=== PATIENT | male | born 1980 | race Caucasian/White ===

== ENCOUNTER 2017-07-17 17:18 | Emergency (ER) | payer MEDICAID, SELFPAY ==
[2017-07-17 17:19] VITALS: BP 145/91; PULSE 71; RESP 14; TEMP 36.4; O2SAT 100; BMI 27.0
--- NOTE | 2017-07-17 17:24 | RAD_ITS ---
STUDY: X-RAY CHEST REASON FOR EXAM: Male, 37 years old. Chest pain TECHNIQUE: Single frontal view COMPARISON: June 28, 2015 FINDINGS: The lungs are clear and expanded. There is no demonstrated pleural abnormality. Normal size heart. Normal mediastinum and jordi. Normal visualized pulmonary arteries. Normal visualized aortic arch and descending thoracic aorta. Normal visualized thoracic spine. Normal visualized ribs, clavicles, and shoulders. There is no demonstrated abnormality of the visualized soft tissue structures of the upper abdomen. RAD/Chest 1 View (Portable) IMPRESSION: Normal x-ray examination of the chest. Electronically Signed: Tyrell Arteaga DO at 18:08 EDT Tel [phone], Service support ,
--- NOTE | 2017-07-17 17:24 | EKG12_ITS ---
Test Reason : CP Blood Pressure : / mmHG Vent. Rate : 060 BPM Atrial Rate : 060 BPM P-R Int : 172 ms QRS Dur : 098 ms QT Int : 406 ms P-R-T Axes : 062 084 053 degrees QTc Int : 406 ms Normal sinus rhythm Septal infarct , age undetermined Abnormal ECG Confirmed by IRENE JIMENEZ, YASMANY ([id number]), fan mail editor MONICA BENNETT ([id number]) on 07/19/2017 1:08:09 PM Referred By: VERN/COURTNEY Confirmed By:YASMANY BONILLA MD
[2017-07-17 17:51] VITALS: O2SAT 98
[2017-07-17 17:53] LABS: Absolute Neutrophil Count 4.4 X10^3/uL (2.0-7.7); Basophil# 0.02 X10^3/uL; Basophil% 0.3 % (0-1); Eosinophil# 0.03 X10^3/uL; Eosinophils% 0.4 % (0-5); Hematocrit 47.3 % (40-54); Hemoglobin 15.9 g/dl (13.0-16.5); Lymphocyte % 27.5 % (19-41); Mean Corp Hgb Conc 33.6 g/gl (32-36); Mean Corpuscular Hgb 31.2 pg (27.0-32.0); Mean Corpuscular Volume 92.9 fL (80-94); Mean Platelet Vol. 10.2 fl (6.2-12.0); Monocyte# 0.55 X10^3/uL; Monocyte% 7.9 % (0-10); Neutrophil # 4.41 X10^3/uL (2.7-7.7); Neutrophil % 63.8 % (47-70); Platelet Count 202 K/mm3 (150-450); RBC Distribution Width CV 12.5 % (11.6-14.6); RBC Distribution Width SD 42.3 fl (35.1-43.9); Red Blood Count 5.09 M/mm3 (4.6-6.2); White Blood Count 6.9 K/mm3 (4.4-11.0)
[2017-07-17 18:02] LABS: POSITIVE COUNT NO; POSITIVE DIFFERENTIAL NO; POSITIVE MORPHOLOGY NO
[2017-07-17 18:06] LABS: Anion Gap 7 (5-15); BUN 9 mg/dL (7-18); BUN/Creat Ratio 11.9 RATIO (10-20); Calcium,Total 9.1 mg/dL (8.5-10.1); Chloride 105 mmol/L (98-107); Creatinine, Serum 0.76 mg/dL (0.70-1.30); EST Glomerular Filtration Rate 124 mL/min (>60); Est Glom Filt Rate - Afr Amer 150 mL/min (>60); Estimated Creatinine Clearance 151.86 ml/min; Glucose 115 mg/dL (74-106); Potassium 3.8 mmol/L (3.5-5.1); Sodium Level 137 mmol/L (136-145)
[2017-07-17 18:23] VITALS: BP 130/78; PULSE 72; RESP 16; O2SAT 97
--- NOTE | 2017-07-17 18:27 | ED.VISSUMM ---
- ER Visit Summary Date of Service: 07/17/17 Chief Complaint: Chest pain History of Present Illness: The patient is a 37 M who states that he has left anterior chest wall pain. He states that he has had this intermittently for years. He states that doing something strenuous like running around the yard makes it come about. Today it seemed more painful for normal. He states that several ER visits for this in the past. He has had a heart stress test 1 year ago that was negative. States he does not know what to do for it. After his stress test he never followed up with anybody. Physical Examination: Afebrile vital signs are stable Gen: Well-nourished well-developed Head: Normocephalic atraumatic Eyes: Perrl EOMI ENT: TMs clear no rhinorrhea moist mucous membranes Neck: Supple no lymphadenopathy no JVD nontender CVS: Regular rate rhythm no murmurs normal S1-S2 Respiratory: No distress clear to auscultation bilaterally left anterior chest and lower cartilage is tender to palpation. Abdomen: Soft nontender nondistended normal bowel sounds no masses Back: Nontender Extremity: Nontender no edema Skin: Normal color no rash Neuro: alert orientated ?3 CN II-XII intact normal strength sensation reflexes gait cerebellar Psych: Normal affect normal mood Test Results: EKG sinus rhythm at a rate of 60.. CBC, BMP, and troponin were negative. Chest x-ray negative. Emergency Department Course and Treatment: Patient received a dose of Toradol and Decadron. I think this is chronic costochondritis. He will be treated with anti-inflammatories and outpatient basis. I encouraged him to follow-up. Impression: 1. Costochondritis This note was generated with [employer] dictation software. It may contain incorrect words, spelling, and punctuation that were not noted in review of the chart prior to signing ED Disposition - Plan for ED Patient: Disposition: Home or Assisted Living Chief Complaint: Chest Pain Instructions: ED Chest Pain Costochondritis Prescriptions: Ibuprofen [Motrin] 800 mg PO TID #20 tab Referrals: Harsh Mack MD [Primary Care Provider] - 1 Week
[2017-07-17] MEDS: Ketorolac 30 MG/ML Syringe IV (18:47)
[2017-07-17 18:51] VITALS: BP 133/87; PULSE 59
== END 2017-07-17 18:51 | disposition home or self-care (01) ==
LOC: ED 18:40
PROVIDERS: Emergency Provider Emergency Medicine; Family Provider Family Medicine; PCP Family Medicine
DX: M94.0 Chondrocostal junction syndrome [Tietze] (principal); Z72.0 Tobacco use
CPT/HCPCS: 71045; 80048; 84484; 85025; 93005; 96374; 96375; 99285; A4216

== ENCOUNTER 2017-10-10 13:07 | Emergency (ER) | payer MEDICAID, SELFPAY ==
[2017-10-10 13:08] VITALS: BP 127/76; PULSE 88; RESP 19; TEMP 36.8; O2SAT 97; BMI 22.7
--- NOTE | 2017-10-10 13:24 | ED.VISSUMM ---
- ER Visit Summary Date of Service: 10/10/17 Chief Complaint: Dental pain History of Present Illness: The patient is a [address] Mack reports he is an appointment with a dentist in 5 days. He has pain in his left mandibular second molar that began approximately a week ago. He states that this tooth broke off a long time ago and is never had problems previously. Describes a throbbing pain is 1010 at worst and 7-10 currently. Sensitive to hot and cold temperatures. Is worsened by breathing or eating. Is taken NSAIDs without relief. He denies any fever, chills, nausea, or vomiting. Physical Examination: Vitals: Stable. Afebrile. Mouth: No trismus. No edema of the floor of the mouth. Pain with percussion of left mandibular second molar. There is obvious caries with erosion of the medial half of the tooth. He does have widespread dental decay. There is no focal abscess. General: A&O x 3. NAD. Cardiovascular exam: Regular rate and rhythm, no murmur, rub or gallop. Respiratory exam: Clear to auscultation bilaterally. No wheezes or stridor. Abdominal exam: Soft, nontender, nondistended, normal bowel sounds. No peritoneal signs. Extremity: No clubbing, cyanosis, or edema. Emergency Department Course and Treatment: Discussed the patient that if he has had this for quite some time he now has pain is likely that he has an infection. History with naproxen and penicillin here. Treatment Plan: Patient will be discharged on naproxen and penicillin. Instructed follow-up with his dentist as soon as possible. Disposition: To home in improved and stable condition. Impression: 1. Dental pain. This note was generated with [employer] software. It may contain incorrect words, spelling, and punctuation that were not noted in review of the chart prior to signing ED Disposition - Plan for ED Patient: Disposition: Home or Assisted Living Chief Complaint: Dental Instructions: ED Tooth Pain Prescriptions: Naproxen [Naprosyn] 500 mg PO BID #14 tablet Penicillin V Potassium 500 mg PO 4X/DAY #40 tablet Referrals: Dentist,Your [STAFF PHYSICIAN] - As soon as possible
[2017-10-10] MEDS: Penicillin Vk 250 MG Tablet 500 MG PO (13:29)
[2017-10-10] MEDS: Naproxen 250 MG Tablet 500 MG PO (13:30)
== END 2017-10-10 13:42 | disposition home or self-care (01) ==
LOC: ED 13:37
PROVIDERS: Emergency Provider Emergency Medicine; Family Provider Family Medicine; PCP Family Medicine
DX: K08.89 Other specified disorders of teeth and supporting structures (principal); K02.9 Dental caries, unspecified; F17.200 Nicotine dependence, unspecified, uncomplicated
CPT/HCPCS: 99283

== ENCOUNTER 2018-10-06 13:21 | Emergency (ER) | payer MEDICAID, SELFPAY ==
[2018-10-06 13:22] VITALS: BP 149/64; PULSE 89; RESP 16; TEMP 36.6; O2SAT 97; BMI 22.2
--- NOTE | 2018-10-06 13:45 | ED.VIS.GEN ---
History of Present Illness Chief Complaint: Upper Extremity Injury Informant: Patient Onset: Days - 2 Context: Onset with activity Timing: Continuous Current Severity: Mild Maximum Severity: Moderate Narrative: Patient got hit in his left shoulder while playing football this weekend. 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 Most of the pain is with movement, it is aching it is shoulder and lower neck region paraspinal near the shoulder. No other injury, he denies any midline neck pain any head injury loss of consciousness he has no paresthesias or weakness. Past Medical History - Allergies and Home Meds Allergies/Adverse Reactions: Allergies No Known Allergies Allergy (Verified 10/06/18 13:22) Primary Care Physician: Harsh Mack MD [Primary Care Provider] - Past Medical History: None Smoking Status: Current every day smoker Review of Systems Eyes: Denies: Visual changes - left Gastrointestinal: Denies: Abdominal pain Musculoskeletal: Reports: -. Denies: Back pain Skin: Denies: Rash, Wounds Neurological: Denies: Weakness, Parasthesia - For neck pain and shoulder pain as in HPI Hematologic: Denies: Easy bruising, Easy bleeding Physical Exam Vital Signs/Narrative: Vital Signs Temp Pulse Resp BP Pulse Ox 10/06/18 13:22 98 F 89 16 149/64 H 97 General: Well nourished, Well developed Head: Normocephalic, Atraumatic Eyes: Perrl ENT: - - No signs of Neck: - - facial trauma no C-spine tenderness very mild tenderness over the upper trapezius region Cardiovascular: Regular rate, Regular rhythm Respiratory: No distress Abdomen: Soft, Nontender Back: Nontender, Normal Inspection Extremities: - - There is diffuse left shoulder tenderness both over the anterior and posterior, some pain with abduction more than 90 degrees. No AC joint tenderness no clavicle tenderness no tenderness over the scapula. Skin: Normal color Neurological: Normal Sensation, Normal Gait Psychological: Normal affect Diagnostic/Tx/Re-eval Left shoulder x-ray interpreted by emergency doctor shows normal alignment normal AC joint no evidence of fracture or dislocation. - Medical Decision Making Patient has a normal x-ray, I will discharge with reassurance Discharge stable condition ED Disposition - Plan for ED Patient: Disposition: Home or Assisted Living Diagnosis: Shoulder contusion Instructions: CONTUSION, Upper Extremity Referrals: Harsh Mack MD [Primary Care Provider] - 3-5 Days
--- NOTE | 2018-10-06 13:48 | RAD_ITS ---
STUDY: X-RAY - LEFT SHOULDER REASON FOR EXAM: Male, 38 years old. Left shoulder pain following injury. TECHNIQUE: 4 view(s) of the shoulder. COMPARISON: None. FINDINGS: Normal glenohumeral articulation. Normal acromioclavicular joint. Normal acromion. Normal humeral head and visualized proximal humerus. The soft tissue structures are unremarkable. Normal visualized pulmonary apex. RAD/Shoulder min 2 Views IMPRESSION: Normal x-ray examination of the shoulder. Electronically Signed: Chidi Daigle, at 14:10 EDT , Service support ,
== END 2018-10-06 14:29 | disposition home or self-care (01) ==
PROVIDERS: Emergency Provider Emergency Medicine; Family Provider Family Medicine; PCP Family Medicine
DX: S40.012A Contusion of left shoulder, initial encounter (principal); X58.XXXA Exposure to other specified factors, initial encounter; Y93.61 Activity, american tackle football; Y92.9 Unspecified place or not applicable; F17.200 Nicotine dependence, unspecified, uncomplicated
CPT/HCPCS: 73030; 99282; A4216

== ENCOUNTER 2018-11-06 19:30 | Emergency (ER) | payer MEDICAID, SELFPAY ==
[2018-11-06 19:31] VITALS: BP 138/81; PULSE 80; RESP 18; TEMP 36.3; O2SAT 96; BMI 24.4
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
[2018-11-06] MEDS: Amox/Clavulanate 875 MG Tablet PO (20:00)
[2018-11-06] MEDS: HYDROcodone Bitartrate/Apap 5/325 Tablet PO (20:00)
== END 2018-11-06 20:04 | disposition home or self-care (01) ==
LOC: ED 19:49
PROVIDERS: Emergency Provider Emergency Medicine; Family Provider Family Medicine; PCP Family Medicine
DX: S02.5XXA Fracture of tooth (traumatic), initial encounter for closed fracture (principal); K02.9 Dental caries, unspecified; W50.0XXA Accidental hit or strike by another person, initial encounter; Y93.72 Activity, wrestling; Y92.9 Unspecified place or not applicable; F17.200 Nicotine dependence, unspecified, uncomplicated
CPT/HCPCS: 99283

== ENCOUNTER 2019-10-27 04:31 | Emergency (ER) | payer MEDICAID, SELFPAY ==
[2019-10-27 04:32] VITALS: BP 138/84; PULSE 103; RESP 16; TEMP 36.6; O2SAT 99; BMI 23.8
--- NOTE | 2019-10-27 04:37 | ED.DCSUM_ITS ---
History of Present Illness Chief Complaint: Upper Extremity Injury Informant: Patient Narrative: Presents with right shoulder pain. He states in his right trapezius. 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 He denies any trauma. He states that he is tried ice and heat as well as Aleve but is not working. He had a similar issue in the past that he saw his PCP for and was in physical therapy. Past Medical History - Allergies and Home Meds Allergies/Adverse Reactions: Allergies No Known Allergies Allergy (Verified 10/27/19 04:36) Primary Care Physician: Harsh Mack MD [Primary Care Provider] - Prior records reviewed: Yes Lives: Alone Smoking Status: Current every day smoker Review of Systems General: Reports: Fever. Denies: Chills Eyes: Denies: Visual changes - bilaterally, Diplopia ENT: Denies: Rhinorrhea, Sore throat Cardiovascular: Denies: Chest pain, Palpitations Respiratory: Denies: Dyspnea, Cough, Dyspnea on exertion Gastrointestinal: Denies: Abdominal pain, Nausea, Vomiting, Diarrhea, Melena, Hematochezia Genitourinary: Denies: Dysuria Musculoskeletal: Reports: Extremity Pain - Trapezius pain and right shoulder pain Skin: Denies: Rash Neurological: Denies: Headache Physical Exam Vital Signs/Narrative: Vital Signs Temp Pulse Resp BP Pulse Ox 10/27/19 04:32 97.9 F 103 H 16 138/84 H 99 General: Well nourished, No Acute Distress Head: Normocephalic, Atraumatic ENT: Moist mucous membranes Neck: - - Spinal tenderness, step-off, deformity. Cardiovascular: Regular rate, Regular rhythm Respiratory: No distress Extremities: - - Tenderness to palpation over the right trapezius. There is no rash or ecchymosis. Full range of motion of the right shoulder. Strength in right upper extremity is 5/5 Skin: Normal color Neurological: Alert, Oriented x3 Psychological: Normal affect Diagnostic/Tx/Re-eval - Medical Decision Making Presents with right shoulder pain which he localizes to the trapezius. He denies any trauma. He is tried NSAIDs at home with ice and heat I counseled him that I will give him some muscle relaxers. He should continue his therapy. He should follow-up with his PCP for physical therapy. Was amenable to this plan. Impression: 1. Right trapezius strain ED Disposition - Plan for ED Patient: Disposition: Home or Assisted Living Instructions: ED Sprain Strain Neck Prescriptions: Cyclobenzaprine HCl 10 mg PO TID PRN PRN #20 tab PRN Reason: pain Prescription Printed Referrals: Harsh Mack MD [Primary Care Provider] -
[2019-10-27] MEDS: Orphenadrine 100 MG Tablet PO (04:53)
== END 2019-10-27 04:55 | disposition home or self-care (01) ==
LOC: ED 04:52
PROVIDERS: Emergency Provider Student in an Organized Health Care Education/Training Program; PCP Family Medicine
DX: S29.012A Strain of muscle and tendon of back wall of thorax, initial encounter (principal); X58.XXXA Exposure to other specified factors, initial encounter; Y93.9 Activity, unspecified; Y92.9 Unspecified place or not applicable; Y99.9 Unspecified external cause status; F17.200 Nicotine dependence, unspecified, uncomplicated
CPT/HCPCS: 99283

== ENCOUNTER 2019-12-07 08:40 | Emergency (ER) | payer MEDICAID, SELFPAY ==
[2019-12-07 08:41] VITALS: BP 136/80; PULSE 90; RESP 17; TEMP 36.2; O2SAT 98; BMI 24.3
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
[2019-12-07] MEDS: Ketorolac 30 MG/ML Syringe IM (09:50)
[2019-12-07] MEDS: HYDROcodone Bitartrate/Apap 5/325 Tablet PO (09:50)
== END 2019-12-07 09:55 | disposition home or self-care (01) ==
LOC: ED 09:10
PROVIDERS: Emergency Provider Emergency Medicine
DX: M54.9 Dorsalgia, unspecified (principal); G89.29 Other chronic pain; F17.200 Nicotine dependence, unspecified, uncomplicated
CPT/HCPCS: 96372; 99283

== ENCOUNTER 2021-03-13 17:44 | Emergency (ER) | payer MEDICAID, SELFPAY ==
[2021-03-13 17:44] VITALS: BP 147/84; PULSE 104; RESP 24; TEMP 36.3; O2SAT 100; BMI 29.1
--- NOTE | 2021-03-13 18:43 | EX.ED.DYSGE1 ---
HPI History of Present Illness Chief Complaint: Shortness of Breath Informant: patient Narrative Narrative: 41-year-old male states that last Saturday he became ill. He notes headache myalgias cough rhinorrhea vomiting. He states the last couple days his symptoms have significantly worsened. He denies any known fevers. [facility] Medical History Chest pain Knee pain Limb weakness Severe headache Shoulder pain SOB (shortness of breath) Home Medications NK 02/01/20 [History Last Taken Unknown] Allergy/AdvReac Type Severity Reaction Status Date / Time No Known Allergies Allergy Verified 03/13/21 17:46 Surgical History History of knee surgery Social History Smoking Status: Current every day smoker tobacco type: cigarettes alcohol intake: never ROS ROS ED Constitutional Constitutional ED: Reports chills; Denies fever(s) or weight loss Eyes Eyes: Denies change in vision or diplopia ENT ENT ED: Reports rhinorrhea and sore throat; Denies ear pain Cardiovascular Cardiovascular: Denies chest pain, orthopnea, palpitations or racing heartbeat Respiratory/Chest Respiratory/Chest: Reports cough, dyspnea and dyspnea on exertion; Denies orthopnea Gastrointestinal Gastrointestinal: Reports diarrhea, nausea and vomiting; Denies abdominal pain Genitourinary Genitourinary ED: Denies dysuria, hematuria or urinary frequency Musculoskeletal Musculoskeletal: Reports myalgias; Denies arthralgias Integumentary Denies abscess or rash Neurologic Neurologic: Reports headache(s); Denies weakness Psychiatric Psychiatric: Denies anxiety, depression, suicidal ideation or suicidal thoughts Endocrine Endocrinology: Denies polydipsia, polyphagia or polyuria Allergic/Immunologic Allergic/Immunologic ED: Denies mouth swelling, tongue swelling or urticaria EXAM Physical Exam Const Vital Signs: 03/13/21 17:44 03/13/21 19:13 Temperature 97.4 F L Temperature Source Temporal Pulse Rate 104 H Respiratory Rate 24 H Respiratory Effort Normal Non-Labored Respiratory Depth Normal Respiratory Pattern Normal Blood Pressure 147/84 H Blood Pressure Mean 105 Pulse Ox 100 Oxygen Delivery Method Room Air Room Air Positive well nourished and well developed General Appearance ED: well developed HEENT Reports normocephalic, head/scalp atraumatic, TM's clear and moist mucous membranes Negative for trauma Tympanic Membrane ED: Yes TM's clear Eyes PERRL and EOMs intact bilaterally Neck no lymphadenopathy, supple and no JVD Resp normal respiratory effort and clear to auscultation bilaterally Cardio regular rate, regular rhythm and no murmurs GI normal to inspection, nondistended, normoactive bowel sounds and non-tender Palpation: soft Back/Spine no CVA tenderness and normal ROM Lumbar Spine / Lower Back: Negative for lumbar spinal tenderness Extremity normal to inspection General Extremety ED: Negative for edema General Extremity: Negative for edema Neuro oriented x3 and CN's II-XII intact bilaterally Sensorium / Orientation: alert Motor Exam: strength 5/5 throughout Psych mental status grossly normal Mood & Affect: Negative for depressed or tearful Skin no rashes or lesions noted and no wounds MDM MDM MDM Narrative Medical decision making narrative: My interpretation of the chest x-ray is no acute process. Rapid Covid and influenza were negative. A formal Covid PCR will be ordered. Patient will not need to stay for the results. Most likely has a viral illness would recommend supportive care and follow-up. Radiography Diagnostic Testing: Clinical Impression(s) from Imaging Studies Chest X-Ray 03/13/21 18:46 IMPRESSION: Normal x-ray examination of the chest. Electronically Signed: Desmond Townsend MD at 20:15 EST , Service support , Discharge Plan Triage Chief Complaint: Shortness of Breath ED Provider: Virgilio Liz Dx/Rx/DC Orders Clinical Impression: Acute viral syndrome Instructions: ED Viral Syndrome (Adult) Prescriptions: No Action NK RF: 0 Primary Care Provider: Care Physician,No Primary Referrals: Tisha Jackson MD [STAFF PHYSICIAN] - As Needed Care Physician,No Primary [Primary Care Provider] - Disposition Disposition: Home, Self Care Discharge Date/Time: 03/13/21 20:10
--- NOTE | 2021-03-13 18:46 | RAD_ITS ---
STUDY: X-RAY CHEST REASON FOR EXAM: Male, 41 years old. COUGH TECHNIQUE: Single AP portable view of the chest. COMPARISON: JULY 17, 2017 FINDINGS: The lungs are clear and expanded. There is no demonstrated pleural abnormality. Normal size heart. Normal mediastinum and jordi. Normal visualized pulmonary arteries. Normal visualized aortic arch and descending thoracic aorta. Normal visualized thoracic spine. Normal visualized ribs, clavicles, and shoulders. There is no demonstrated abnormality of the visualized soft tissue structures of the upper abdomen. RAD/Chest 1 View (Portable) IMPRESSION: Normal x-ray examination of the chest. Electronically Signed: Desmond Townsend MD at 20:15 EST , Service support ,
[2021-03-13 19:13] VITALS: O2SAT 99
== END 2021-03-13 20:10 | disposition home or self-care (01) ==
PROVIDERS: Emergency Provider Emergency Medicine
DX: B34.9 Viral infection, unspecified (principal); Z20.822 Contact with and (suspected) exposure to COVID-19; R51.9 Headache, unspecified; M79.10 Myalgia, unspecified site; R05.9 Cough, unspecified; R11.10 Vomiting, unspecified; J34.89 Other specified disorders of nose and nasal sinuses; R06.00 Dyspnea, unspecified; F17.210 Nicotine dependence, cigarettes, uncomplicated
CPT/HCPCS: 71045; 87426; 87635; 87804; 99283; U0005; U0003

== ENCOUNTER 2021-10-23 15:59 | Emergency (ER) | payer MEDICAID, SELFPAY ==
[2021-10-23 16:00] VITALS: BP 135/115; PULSE 105; RESP 16; TEMP 36.6; O2SAT 97; BMI 30.5
[2021-10-23 16:51] LABS: Absolute Lymphocyte Count 2.91 X10^3/uL (0.83-4.51); Absolute Neutrophil Count 6.8 X10^3/uL (2.0-7.7); Basophil# 0.05 X10^3/uL; Basophil% 0.5 % (0-1); Eosinophil# 0.06 X10^3/uL; Eosinophils% 0.5 % (0-5); Hematocrit 40.3 % (40-54); Hemoglobin 13.8 g/dL (13.0-16.5); Lymphocyte # 2.91 X10^3/ul (0.83-4.51); Lymphocyte % 26.2 % (19-41); Mean Corp Hgb Conc 34.2 g/dL (32-36); Mean Corpuscular Hgb 30.3 pg (27.0-32.0); Mean Corpuscular Volume 88.6 fL (80-94); Mean Platelet Vol. 10.2 fl (6.2-12.0); Monocyte# 1.29 X10^3/uL; Monocyte% 11.6 % (0-10); NRBC Flagged by Analyzer 0 % (0-5); Neutrophil # 6.77 X10^3/uL (2.7-7.7); Neutrophil % 60.9 % (47-70); Platelet Count 237 K/mm3 (150-450); RBC Distribution Width CV 12.1 % (11.6-14.6); RBC Distribution Width SD 39.4 fl (35.1-43.9); Red Blood Count 4.55 M/mm3 (4.6-6.2); White Blood Count 11.1 K/mm3 (4.4-11.0)
[2021-10-23 17:05] LABS: Anion Gap 6 (5-15); BUN 34 mg/dL (7-18); BUN/Creat Ratio 36.8 RATIO (10-20); Calcium,Total 9.4 mg/dL (8.5-10.1); Chloride 108 mmol/L (98-107); Creatinine, Serum 0.92 mg/dL (0.70-1.30); EST Glomerular Filtration Rate 96 mL/min (>60); Est Glom Filt Rate - Afr Amer 116 mL/min (>60); Estimated Creatinine Clearance 117.15 ml/min; Glucose 116 mg/dL (74-106); Potassium 3.5 mmol/L (3.5-5.1); Sodium Level 139 mmol/L (136-145)
--- NOTE | 2021-10-23 17:27 | EDS_ITS ---
HPI HPI - Psych History of Present Illness Chief Complaint: Suicidal Narrative Narrative: 41-year-old male with history of anxiety and depression as well as methamphetamine use presenting with depression. He states he does not exactly feel suicidal. He does not want to hurt himself. He states he does not want to . He states he is very depressed because he just got out of rehab on Saturday. He was able to go to his son's birthday republican on Saturday. He states that he ran into a friend that he knew from doing meth together in the store and he is not sure what happened. He states 10-minute later he was doing meth. He did this 1 time. This is made him very depressed. He does not have a suicide plan. Does not want hurt others. He states that he had previously talked to somebody from crisis who was supposed to call him back and was lost to follow-up. He states they did not call him. [facility] Medical History (Updated 10/23/21 @ 16:25 by Fei Xiao) Anxiety Chest pain Depression Knee pain Limb weakness Severe headache Shoulder pain SOB (shortness of breath) Home Medications NK 02/01/20 [History Last Taken Unknown] Allergy/AdvReac Type Severity Reaction Status Date / Time No Known Allergies Allergy Verified 10/23/21 16:03 Surgical History History of knee surgery Social History Smoking Status: Current every day smoker tobacco type: cigarettes alcohol intake: never EXAM Physical Exam Const Vital Signs: 10/23/21 16:00 10/23/21 17:33 10/23/21 18:23 Temperature 97.8 F Temperature Source Temporal Pulse Rate 105 H Respiratory Rate 16 13 15 Blood Pressure 135/115 H Blood Pressure Mean 121 Pulse Ox 97 Oxygen Delivery Method Room Air Room Air Room Air MDM MDM MDM Narrative Medical decision making narrative: Patient seems to be struggling with depression but does not admit to any suicidal or homicidal ideations. He is clear thinking and states most of his depression is currently having his over relapsing with methamphetamine the other day. I did obtain lab work for medical clearance and this is all normal. She was positive for methamphetamine and MDMA. EtOH negative. Crisis did speak with the patient and felt he was safe for outpatient follow-up. They set him up for a crisis appointment at 1 PM on . He was referred for IOP today. He is to continue with new day for his addiction. Any new problems he should return to the ER. Impression: 1. Depression 2. Methamphetamine abuse 3. MDMA abuse Lab Data Attestation: I reviewed the patient's lab results. Labs: Laboratory Results - last 24 hr 10/23/21 10/23/21 10/23/21 16:37 16:37 16:37 WBC 11.1 H RBC 4.55 L Hgb 13.8 Hct 40.3 MCV 88.6 MCH 30.3 MCHC 34.2 RDW Std Deviation 39.4 RDW Coeff of Carlos 12.1 Plt Count 237 MPV 10.2 Immature Gran % (Auto) 0.300 Neut % (Auto) 60.9 Lymph % (Auto) 26.2 Centre % (Auto) 11.6 H Eos % (Auto) 0.5 Baso % (Auto) 0.5 Absolute Neuts (auto) 6.8 Absolute Lymphs (auto) 2.91 Nucleated RBC % 0 Sodium 139 Potassium 3.5 Chloride 108 H Carbon Dioxide 25.0 Anion Gap 6 BUN 34 H Creatinine 0.92 Estim Creat Clear Calc 117.15 Est GFR (MDRD) Af Amer 116 Est GFR (MDRD) Non-Af 96 BUN/Creatinine Ratio 36.8 H Glucose 116 H Calcium 9.4 Urine Opiates Screen Urine Methadone Screen Ur Barbiturates Screen Ur Phencyclidine Scrn Ur Amphetamines Screen MDMA (Ecstasy) Screen U Benzodiazepines Scrn Urine Cocaine Screen U Cannabinoids Screen Ur Drug Screen Comment Ethyl Alcohol < 3.0 10/23/21 16:38 WBC RBC Hgb Hct MCV MCH MCHC RDW Std Deviation RDW Coeff of Carlos Plt Count MPV Immature Gran % (Auto) Neut % (Auto) Lymph % (Auto) Centre % (Auto) Eos % (Auto) Baso % (Auto) Absolute Neuts (auto) Absolute Lymphs (auto) Nucleated RBC % Sodium Potassium Chloride Carbon Dioxide Anion Gap BUN Creatinine Estim Creat Clear Calc Est GFR (MDRD) Af Amer Est GFR (MDRD) Non-Af BUN/Creatinine Ratio Glucose Calcium Urine Opiates Screen NEGATIVE Urine Methadone Screen NEGATIVE Ur Barbiturates Screen NEGATIVE Ur Phencyclidine Scrn NEGATIVE Ur Amphetamines Screen POSITIVE H MDMA (Ecstasy) Screen POSITIVE H U Benzodiazepines Scrn NEGATIVE Urine Cocaine Screen NEGATIVE U Cannabinoids Screen NEGATIVE Ur Drug Screen Comment Ethyl Alcohol Discharge Plan Triage Chief Complaint: Suicidal ED Provider: Lee Quiñones Dx/Rx/DC Orders Instructions: ED Depression Prescriptions: No Action NK Primary Care Provider: Care Physician,No Primary Referrals: Care Physician,No Primary [Primary Care Provider] - Activity Restrictions/Additional Instructions: You have follow-up with crisis at 1 PM. Today you were referred for IOP. You are to continue to follow-up with new day as well. Return to the ER with any new problems. Disposition Disposition: Home, Self Care
[2021-10-23 17:31] LABS: Amphetamine Urine VISTA POSITIVE (<1000 ng/mL); Barbiturate Urine VISTA NEGATIVE (< 200 ng/mL); Benzodiazepine Urine VISTA NEGATIVE (< 200 ng/mL); Cocaine Urine VISTA NEGATIVE (< 300 ng/mL); Ecstacy Urine VISTA POSITIVE (< 500 ng/mL); Methadone Urine VISTA NEGATIVE (< 300 ng/mL); PCP Urine VISTA NEGATIVE (< 25 ng/mL); THC Urine VISTA NEGATIVE (< 50 ng/mL); Vista UDS pH Range 5
[2021-10-23 17:33] VITALS: RESP 13
[2021-10-23 17:47] LABS: Alcohol, Blood (Medical)-Serum < 3.0 mg/dL
[2021-10-23 18:23] VITALS: RESP 15
[2021-10-23 20:20] VITALS: BP 118/75; PULSE 85; RESP 14; O2SAT 98
== END 2021-10-23 20:21 | disposition home or self-care (01) ==
PROVIDERS: Emergency Provider Student in an Organized Health Care Education/Training Program; Visit Provider Student in an Organized Health Care Education/Training Program
DX: F32.A Depression, unspecified (principal); F15.10 Other stimulant abuse, uncomplicated; F41.9 Anxiety disorder, unspecified; F17.210 Nicotine dependence, cigarettes, uncomplicated
CPT/HCPCS: 80048; 80307; 82077; 85025; 87811; 99283

== ENCOUNTER 2021-11-20 09:00 | Outpatient (RCR) | payer MEDICAID, SELFPAY ==
--- NOTE | 2021-11-20 09:03 | BH.COMM_ITS ---
Communication Note - Communication with Client Communication Note: Pt completed initial paperwork. No significant changes since pre-admission screening. Completed [place] Suicide Screening with low-moderate risk. Consulted with Dr. Mulligan with plan to admit to [facility] level of care with dx of F33.1
--- NOTE | 2021-11-20 09:05 | BH.SGPN.GN ---
Behaviors/Verbalizations/Mental Status: [] Eye contact is good. Motor activity is appropriate. Appearance is casual. Speech is Appropriate. Mood is depressed. Affect is flat. Thoughts are linear and logical. No evidence of psychosis. Reviewed daily check in sheet and no reports of suicidal ideations or intent. Client Response/Progress/Benefit: [] Pt participated at times during group discussion. Attentive. This was pt?s first day in IOP. Not comfortable sharing yet in process group however did briefly introduce himself and stated that he hopes to work on ?his depression and anxiety? in IOP. Briefly discussed how this impacts him daily. No progress noted. Will continue in IOP to maintain safety, increase healthy coping, and prevent decompensation. Narrative Note: []
--- NOTE | 2021-11-20 10:10 | BH.SGPN.GN ---
Behaviors/Verbalizations/Mental Status: []Pt alert and oriented, casually dressed and groomed. Eye contact good. Motor activity appropriate. Speech within normal limits. Affect congruent, mood content. Thoughts linear, logical, no signs of hallucinations or delusions. Client Response/Progress/Benefit: []Pt was a mostly passive participant in group discussions and activity. Attentive during psychoeducation. Pt along with peers were able to identify several negatives on the picture given to the group. Pt and peers also identified positives in the picture and made the connect that finding positives is much more difficult. Interactive discussion on the definition of perspective, how perspective is formed, and why perspective is important in treatment. Group also identified that perspective can either motivate and encourage treatment or be a barrier to receiving help. Pt?s first day and he was positive quiet during group, but did take notes and participate in the activity. Will continue in IOP to prevent decompensation, gain healthy coping skills, and improve overall functioning. Narrative Note: []
--- NOTE | 2021-11-22 10:36 | BH.COMM ---
Communication Note - Communication with Client Communication Note: pt cancelled IOP this AM due to transportation issues. Was scheduled to see psychiatry.
== END 2021-11-22 23:59 ==
LOC: BHIOP 09:00
PROVIDERS: Visit Provider Psychiatry & Neurology Psychiatry
DX: F33.1 Major depressive disorder, recurrent, moderate (principal)
CPT/HCPCS: H2012

== ENCOUNTER 2021-11-23 07:44 | Outpatient (RCR) | payer MEDICAID, SELFPAY ==
--- NOTE | 2021-11-24 11:05 | BH.SGPN.GN ---
Behaviors/Verbalizations/Mental Status: []Pt alert and oriented, casually dressed and groomed. Eye contact intense. Motor activity appropriate. Speech within normal limits. Affect constricted, mood irritable. Thoughts linear, logical, no signs of hallucinations or delusions. Client Response/Progress/Benefit: []Pt engaged in session AEB pt listening attentively to peers. Attentive during psychoeducation on 4 zones of regulation. Pt able to identify feelings and behaviors for each zone.? Pt identified coping skills one can use to support self in each zone. Pt stated belief that pt is in the green zone today as pt is happy it that it is the weekend and he gets to see his kids. Pt reports taking his kids to the park today will keep pt in the green zone today. Benefited from increased education on zones of regulation or stages of alertness for emotions and healthy coping skills to use for each zone. Pt will continue IOP tx to prevent decompensation, improve emotional regulation skills, and increase mood stability. ? Narrative Note: []
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
--- NOTE | 2021-11-24 11:21 | BH.MTP_ITS ---
Master Treatment Plan - Patient Information Program Physician:: Charo Mulligan Primary Therapist:: Scout Hernandez - Psychiatric Diagnoses Psychiatric Diagnoses:: 1. Major depressive disorder, recurrent, moderate. 2. Generalized anxiety disorder. 3. PTSD. 4. Attention deficit hyperactivity disorder. 5. Methamphetamine use disorder (sober for 2 months). Diagnosis Code(s):: F33.2 - Estimated LOS Estimated LOS (in weeks):: 8 Problem/Goal #1 - Problem/Goal #1 Stated Goal:: Client will reduce depressive symptoms, worthlessness, suicidal ideations, anger, and sadness AEB pt self-report and decreased scores on depression, anger, and suicidal ideation domains of the DSM-5 cross cutting scales. Description of Barriers: addiction, housing issues, unemployed, legal issues, trauma, and transportation issues. Functional Impact: Recently presented to the [facility] ER on 10/23/21 due to SI and depression. Hx of self-medication with substances for long-standing hx of depression. Goal Relevant Strengths/Supports: resilient, hard-worker, - Objectives Objective #1 Stated Objective: Client will learn and utilize 2-3 healthy coping strategies to manage depressive symptoms as shown by reduced DSM-5 cross-cutting symptom measure score. Interventions: Through individual and group counseling will help client identify their triggers and teach client various coping strategies to effectively cope with depressive symptoms. Discharge Criteria: Able to identify and consistently use 3 coping skills to manage depressive thoughts. Target Date: 01/04/22 Review Date: 12/14/21 Objective #2 Stated Objective: Client will identify 5 physical warning signs of anger and 5 ways to calm and manage anger. Interventions: Through individual and group counseling will provide client with calming techniques as part of a tailored strategy for reducing chronic and acute physiological tension that accompanies the escalation of his/her angry feelings. Discharge Criteria: Able to identify 5 warning signs to anger and 5 strategies to implement Target Date: 01/04/22 Review Date: 12/14/21 Problem/Goal #2 - Problem/Goal #2 Stated Goal:: Stabilize anxiety level while increasing ability to function on a daily basis AEB self-report and reduction on anxiety domain scores on the DSM-5 cross-cutting scale. Description of Barriers: addiction, housing issues, unemployed, legal issues, trauma, and transportation issues. Functional Impact: Anxiety, panic, and hypervigilance impact pt's relationship with others. Goal Relevant Strengths/Supports: resilient, hard-worker, extensive treatment for addiction issues. - Objectives Objective #1 Stated Objective: Client will learn and implement 2-3 calming skills to reduce overall anxiety and manage anxiety Interventions: Through individual and group counseling will teach the client calming/relaxation skills (e.g., muscle relaxation, mindful breathing) and how to discriminate better between relaxation and tension; teach the client how to apply these skills to his/her daily life. Discharge Criteria: Able to identify and consistently implement 3 calming skills for anxiety. Target Date: 01/04/22 Review Date: 12/14/21 Objective #2 Stated Objective: Client will be able to explain common stress reactions and sy mptoms related to trauma. Interventions: Through individual and group counseling will provide education on trauma and explain the impact trauma can have on development. Will help client explore personal symptoms and warning signs of stress and trauma. Discharge Criteria: Client will verbalize common stress reactions related to trauma triggers and report increased awareness and insight on how trauma impacts the brain. Target Date: 01/04/22 Review Date: 12/14/21
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
[2021-11-29 11:15] VITALS: BP 143/77; PULSE 80
--- NOTE | 2021-11-29 11:15 | BH.SGPN.GN ---
Behaviors/Verbalizations/Mental Status: []Pt alert and oriented, neatly dressed and groomed. Eye contact fair. Motor activity appropriate. Speech within normal limits. Affect constricted, mood dysthymic. Thoughts linear, logical, no signs of hallucinations or delusions. Client Response/Progress/Benefit: []Pt participated at times during group discussions. Attentive during psychoeducation on the 4 A's of Coping with Stress (Avoid, Alter, Adapt, Accept). Participated in experiential activity in which group members had to utilize stress management skills in the moment. Pt agreed with peers that their anxiety and urge to stop was a barrier but pt worked well with peers to problem-solve. Pt engaged in review of the 4 A?s and picked wanting to work on altering his morning routine by putting what he needs the night before which will reduce stress in the morning. Benefited from processing in the moment stress management strategies and identifying new ways to cope with stress. Will continue in IOP tx to increase healthy coping skills, improve daily functioning, and monitor medications. Narrative Note: []
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
--- NOTE | 2021-11-29 12:43 | BH.DR.ITP ---
Initial Treatment Plan Patient Information Visit Information: ADMISSION DATE: EXPECTED LOS: 4-6 weeks Problems/Symptoms Problem #1:: Depression Symptom:: Sadness, hopelessness, worthlessness, recent suicidal ideation, biological disruption of sleep Problem #2:: Anxiety Symptom:: Worry, rumination, panic attacks, nightmares, flashbacks, avoidance, reexperiencing
--- NOTE | 2021-12-06 09:05 | BH.SGPN.GN ---
Behaviors/Verbalizations/Mental Status: [] Eye contact is good. Motor activity is appropriate. Appearance is casual. Speech is Appropriate. Mood is anxious. Affect is congruent. Thoughts are linear and logical. No evidence of psychosis. Reviewed daily check in sheet and no reports of suicidal ideations or intent. Client Response/Progress/Benefit: [] Pt participated at times during the group discussion. Attentive. Daily symptom tracker notes 03/29 for depression, anxiety, and irritability. Mental health wins included spending several hours at a social event. Shared the struggles that he has at social events with his anxiety and hypervigilance. Being ?surrounded by strangers? is a significant trigger for him. ?There were too many people?. He was vague on skills except to state that ?I did it for the kids?. Pt was there with his nephews and nieces. Overall, he has been managing his emotions well which he attributes to distraction. ?I?ve been busy with work?. He is struggling with his responsibilities which include IOP, work, spending time with kids, and probation. Progress noted per pt report. Benefited from group support, encouragement, and feedback. Will continue in IOP to maintain safety, prevent decompensation, and increase healthy coping skills. Narrative Note: []
--- NOTE | 2021-12-06 11:00 | BH.SGPN.GN ---
Behaviors/Verbalizations/Mental Status: []Pt alert and oriented, casually dressed and groomed. Eye contact good. Motor activity appropriate. Speech within normal limits. Affect congruent, mood euthymic. Thoughts linear, logical, no signs of hallucinations or delusions. Client Response/Progress/Benefit: []Pt responded well to session as evidenced by Pt listening attentively to others and providing strategies during discussion.? Pt identified personal warning signs for crisis and gained further awareness of earliest warning signs. Pt created a crisis action plan to help Pt better manage warning signs for crisis. Pt?s action plan included warning signs such as negative thinking, uncontrollable worries, and feeling disconnected. Pt?s coping skills included challenging his perspective, taking deep breathes, self-talk, and reminding himself what does not help. Pt appeared to benefit from creating a crisis action plan and increasing self-awareness. Pt to continue IOP tx to increase emotional regulation skills, challenge distortions, and increase mood stability. Narrative Note: []
--- NOTE | 2021-12-07 10:15 | BH.SGPN.GN ---
Behaviors/Verbalizations/Mental Status: []Pt alert and oriented, casually dressed and groomed. Eye contact good. Motor activity appropriate. Speech within normal limits. Affect constricted, mood euthymic. Thoughts linear, logical, no signs of hallucinations or delusions. Client Response/Progress/Benefit: []Pt responded well to session AEB contributing to discussion, taking notes, and listening attentively to others. Group discussed the benefits of managed anger and anger as a secondary emotion. Pt shared perspective on negatives from acting out in anger as stress and more mental health issues.? Pt completed anger iceberg worksheet, reporting outward personal signs of anger as screaming cussing and yelling. Identified underlying emotions that contribute to anger including anxiety, depression, and feeling betrayed. ?Appeared to benefit from increased knowledge of the underlying emotions that impact anger and increased self-awareness of the internal and external consequences of anger. Will continue IOP tx to improve emotional regulation skills and increase mood stability. ?? Narrative Note: []
--- NOTE | 2021-12-07 13:23 | BH.MDN ---
Multi-Disciplinary Note - Note 45-min Individual Time Started:: 11:15 Date: 12/07/21 Purpose of session/treatment goals addressed:: Met with pt to review symptoms and progress. Addressed treatment plan goals 1 and 2. Eye Contact:: Good Motor Activity:: Appropriate Appearance:: Disheveled Speech:: Appropriate Mood:: Euthymic Affect:: Full Thoughts:: Linear, Logical, No evidence of hallucinations/delusions noted Staff Interventions:: CBT techniques, rapport building, discharge planning, strengths perspective Client Response:: Pt presents today in good spirits reporting decreased depression, anxiety, and distress since entering [facility]. I like it here and I'm learning quite a bit. States that he also likes the people and support. Benefiting the most from peer feedback, interaction, and not feeling alone. Medication compliant. Denies any struggles or side effects with the medication. He has also started working for himself again which has been difficulty however positive as it has helped him stay busy. Admits that distraction and purpose he gets through working have also helped with his mental health struggles. Denies any SI or passive thoughts of for the past several weeks. He shared several situations which were high anxiety that he made it through. Risks/Concerns:: No risks or concerns noted. Progress Toward Goals/Plan:: Pt reports progress over the the past two weeks. Currently reports decreased mental health symptoms, improved functioning, medication compliant, and remains sober. Insight and awareness of the triggers and environmental situations which can negatively impact him. Types of people, certain people, high tension, and anytime of substance use are all environments which put him in situation which can negative impact his mental health and sobriety. He was able to identify the importance of assessing all the environments that he enters (Whether socially or for work) to gauge whether entering is beneficial or not. Through groups he was able to identify the some coping skills, however is still learning. Pt's attendance has been inconsistent mainly due to transportation issues and work, however he reports being motivated. We will continue to encourage consistent attendance. Plan is to continue in [facility] to maintain gains and prevent decompensation. We discussed aftercare plans as well. Pt was given referral to [facility] for psychiatry and counseling. Time Stopped:: 12:00
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
--- NOTE | 2021-12-19 13:35 | BH.COMM_ITS ---
Communication Note - Communication with Client Communication Note: No show/no called. This marketing underwriter left VM asking for him to return call.
--- NOTE | 2021-12-19 13:35 | BH.COMM ---
Communication Note - Communication with Client Communication Note: No show/no called. This justowriter operator left VM asking for him to return call.
--- NOTE | 2021-12-20 11:14 | BH.DS ---
Discharge Summary - Demographics Date of Admission:: 11/20/21 Discharge Date: 12/20/21 Presenting Problems at Admission:: Pt is a 41 year old male with hx of MDD and anxiety per his report. Pt also has a hx of Methamphetamine Use Disorder (early remission). Pt was recently incarcerated at the [facility] where he underwent substance abuse treatment from 06/2021 through 10/20/21. Upon his release he ran into a friend who offered him meth and he ended up using. Shortly after his use pt reports increase in depression, guilt, and reported suicidal thoughts. Pt presented to the [facility] ER on 10/23/21 and after a crisis assessment was referred to [facility] IOP. Pt reports long-standing mental health symptoms stemming back to trauma at a young age. At time of intake pt reported low energy, low motivation, hopelessness, worthlessness, isolation, and crying spells. Frequent panic attacks and social anxiety. Current mental health and substance use issues have impacted ability to maintain employment or housing and pt is currently living with cousin. Denies active suicidal ideations, plan, or intent. According to ER notes pt presented on 10/23/21 and reported SI for two days prior. Notes indicate that he called his PO with SI who transported him to the ER. Previous suicide attempt 20 years ago via cutting wrists. Hx of meth use daily (1gram) till 06/2021. Relapsed once on 10/22/21 and again recently this past week. Weekly drug testing through PO who is aware of most recent relapse. Family hx of MDD (father). Denies HI or psychosis. Discharge Diagnoses:: 1. Major depressive disorder, recurrent, moderate. 2. Generalized anxiety disorder. 3. PTSD. 4. Attention deficit hyperactivity disorder. 5. Methamphetamine use disorder. Reason for Discharge:: Pt agreed to transition to individual outpatient counseling and psychiatry services as he has been unable to attend the IOP program consistently due to transportation issues. Pt has met max IOP program benefit given barriers to consistent attendance. Recommended ongoing substance use and mental health treatment on an outpatient basis. - Treatment Progress During Treatment & Response: Inconsistent attendance in tx due to ongoing transportation issues. Though when in attendance, pt was engaged in both individual and group sessions. According to 5-week DSM scores, pt has had a 24% reduction in overall symptoms since admission. Outcomes show a 88% reduction in somatic symptom scales and an 88% reduction in repetitive thoughts and behaviors. Pt did see a slight increase in depressive symptoms though this may be related to the acute stressor of a recent of a close friend. Pt has had one relapse on meth since entering [facility] and reports his PO is aware of this. Self-reports improved mood and use of supports. Unable to complete treatment plan goals due to limited program attendance. He is able to identify several healthy coping skills and is working to improve consistency of skill application. Able to see some progress in himself and his improved mood, reports looking forward to continue working on his mental health through outpatient treatment services. Issues Still to be Addressed:: Relapse prevention for ongoing substance use issues. Pt would benefit from continued counseling and psychiatry to maintain gains, prevent decompensation, and continue to promote mood stability. Discharge Recommendations/Instructions:: Re[facility], next appointment scheduled for 12/27/21. Also recommended to follow-up with counseling to continue to work on anxiety, depression, and relapse prevention. Pt scheduled with Sara for an intake assessment on 01/05/22. Recommended engagement in outpatient substance use supportive services such as NA. Discharge Handout: Complete Discharge Handout with client on aftercare options and continuity of care.
--- NOTE | 2021-12-20 11:32 | BH.COMM ---
Communication Note - Communication with Client Communication Note: Met with pt to discuss treatment attendance issues and plan of care. Aided pt in establishing aftercare services given ongoing transportation issues impeding ability to maintain consistent program attendance.
--- NOTE | 2021-12-20 11:34 | PCM.BH.PN ---
Progress Note Progress Note: History of Present Illness/Interim History: [] The patient is a 41-year-old never male with a history of anxiety, depression, PTSD and methamphetamine use disorder who is seen in follow-up at the [facility] behavioral health IOP program. I last saw the patient 3 weeks ago and at that time he was started on Zyprexa to help with his severe anxiety which is exacerbating his depression. The patient states that he is tolerating the Zyprexa well but he still has severe anxiety and feels his anxiety is not much better. He denies using any energy drinks but he does admit that his he had a bad week last week including the fact that his best friend was killed in a motor vehicle accident last week and so the patient relapsed on methamphetamine 1 time only last week. He says that he is committed to staying sober now again. He has had somewhat inconsistent attendance in the IOP program but he feels that he has benefited from it. He is back to work full-time and is doing okay at work. He still has some worry and he sleeping 6 to 7 hours a night. He denies passive thoughts of , suicidal ideation, plan for suicide, homicidal ideation, hallucinations or delusions. Current Psychiatric Medications: [] Zyprexa 2.5 mg p.o. nightly (x3 weeks) Mental Status Examination: [] The patient is a 41-year-old male who appears older than his stated age and is casually dressed and groomed with good hygiene. He is ambulatory with a normal gait and alert and oriented to person place and time. He has no psychomotor agitation or retardation. He is cooperative and speech is normal rate and rhythm and fluent without pressure. Eye contact is good. Mood is depressed and anxious. Affect is constricted but brighter than when I last saw him. Thought process is goal-directed and organized. Thought content: There is no evidence of passive thoughts of , homicidal ideation, suicidal ideation, hallucinations or delusions. Reality testing is intact. Intelligence is average. Impulsivity is high. Judgment is fair to limited. Insight is fair to limited. Diagnoses: [] 1. Major depressive disorder, recurrent, moderate 2. Generalized anxiety disorder 3. PTSD 4. Attention deficit hyperactivity disorder 5. Methamphetamine use disorder (relapsed 1 week ago 1 time) Plan: [] The patient will be discharged from the IOP program today and he will follow-up with his outpatient psychiatric and medical providers. He has an appointment in 2 weeks with his psychiatric provider. He felt safe during the interview and if it anytime he does not feel safe he will let us know or go to the emergency room. The risks, options and possible side effects and complications of the Zyprexa were again discussed with the patient and he understands and accepts these. He understands that he is at risk for weight gain although he has not had issues with that yet. He understands he should eat healthy. He understands the importance of staying sober off all drug use. His Zyprexa was increased to 5 mg p.o. nightly to help his anxiety and depression further. Prescription was sent in for this #30 with no refills.
== END 2021-12-20 14:05 | disposition home or self-care (01) ==
LOC: BHIOP 07:44
PROVIDERS: Visit Provider Psychiatry & Neurology Psychiatry
DX: F33.1 Major depressive disorder, recurrent, moderate (principal); F41.1 Generalized anxiety disorder; F43.10 Post-traumatic stress disorder, unspecified; F90.9 Attention-deficit hyperactivity disorder, unspecified type; F11.99 Opioid use, unspecified with unspecified opioid-induced disorder
CPT/HCPCS: 90792; 99214; H2012; H2020; S9480; T1002; 90834; 90837

== ENCOUNTER 2023-09-20 19:29 | Emergency (ER) | payer MEDICAID, SELFPAY ==
[2023-09-20 19:30] VITALS: BP 149/90; PULSE 106; RESP 15; TEMP 36.8; O2SAT 97; BMI 28.5
--- NOTE | 2023-09-20 19:35 | RAD_ITS ---
STUDY: X-RAY - LEFT KNEE REASON FOR EXAM: Male, 43 years old. PAIN, SWELLING TECHNIQUE: 4 view(s) of the knee. COMPARISON: None. FINDINGS: Normal visualized distal femur. Normal visualized proximal tibia and fibula. Normal proximal tibiofibular articulation. Postsurgical changes status post ACL repair. Mildly narrowed medial femorotibial compartment. Normal lateral femorotibial compartment. Normal patellofemoral articulation. There is fullness of the suprapatella bursa consistent with effusion.. RAD/Knee 4 or More Views IMPRESSION: Postsurgical and mild degenerative change. No acute fracture or other significant bony pathology Electronically Signed: Kaden Botello MD at 20:15 EDT Reading Location ID and State: [facility] [place] Tel , Service support ,
--- NOTE | 2023-09-20 20:22 | EDS_ITS ---
HPI History of Present Illness Chief Complaint: Lower Extremity Injury Detail of Chief Complaint: Injury left knee Informant: patient Occured/Mechanism Mechanism/Context: Yes injury Comment: Per HPI narrative Onset/Context/Timing Onset: Today and Hours Context: Sudden Onset Timing: Continuous Quality of Pain: Dull and Aching Location: Anterior left knee Current Severity: Moderate Maximum Severity: Severe Worsened by: Weightbearing, movement Relieved by: Nothing Associated Symptoms Associated Symptoms: Negative for Parasthesia or Weakness Narrative Narrative: Patient is a 43-year-old male with ACL injury and repair x 2. His orthopedist is Dr. Vignesh Hoang. He states he was walking. His foot went in a hole and had a twisting mechanism of injury to his left knee. He felt this snap pop in his knee swelled immediately. He states he has significant pain with movement and weightbearing. He has no allergies to pain medicine. He denies any other injury. He denies paresthesia, anesthesia or motor weakness of the leg or foot. Prior similar symptoms: Yes Recent Illness/Hospitalization: No PFSH PFSH Medical History Methamphetamine use disorder, moderate, in early remission Attention deficit hyperactivity disorder PTSD (post-traumatic stress disorder) Generalized anxiety disorder Major depressive disorder, recurrent, moderate Limb weakness Knee pain Chest pain Severe headache Shoulder pain SOB (shortness of breath) Home Medications ?Medication ?Instructions ?Recorded ?Last Taken ?Type olanzapine 5 mg tablet (Zyprexa) 5 mg PO QHS 30 days #30 tabs 12/20/21 Unknown Rx hydrocodone-acetaminophen 5-325mg 1 tab PO Q6H PRN PRN Pain 3 days 09/20/23 Unknown Rx 5mg-325mg #10 TABLETS Allergy/AdvReac Type Severity Reaction Status Date / Time No Known Allergies Allergy Verified 09/20/23 19:31 Surgical History History of knee surgery Social History Smoking Status: Current every day smoker tobacco type: cigarettes alcohol intake: never ROS ROS ED Constitutional Constitutional ED: Denies chills, fever(s), subjective or sweats Cardiovascular Cardiovascular: Denies chest pain Respiratory/Chest Respiratory/Chest: Denies dyspnea or dyspnea on exertion Gastrointestinal Gastrointestinal: Denies nausea or vomiting Musculoskeletal Musculoskeletal: Reports other Details: Per HPI narrative ; Denies arthralgias, back pain or myalgias Neurologic Neurologic: Denies paresthesias or weakness Hematologic/Lymphatic Hematologic/Lymphatic: Denies easy bleeding or easy bruising EXAM Physical Exam Const Vital Signs: 09/20/23 19:30 Temperature 98.2 F Temperature Source Temporal Pulse Rate 106 H Respiratory Rate 15 Blood Pressure 149/90 H Blood Pressure Mean 109 Pulse Ox 97 Oxygen Delivery Method Room Air Positive well nourished and well developed General Appearance ED: well developed; Negative for NAD HEENT normocephalic and atraumatic Eyes PERRL Resp normal respiratory effort Cardio regular rate and regular rhythm Extremity Negative for normal to inspection or full ROM Extremity Narrative: Patient has swelling of the left knee. The patellas not blottable. There is a significant effusion. Patient complains of pain with varus valgus stress testing with no laxity. Patient able to extend 280 degrees and flex to approximately 100 degrees. There is joint line tenderness. Modified Sandra's test causes pain but there is no appreciable click. Unable to perform a Amber's test because patient is so apprehensive and and his muscle spasm. There is fullness in the popliteal fossa with minimal tenderness. Is no pulsatile mass. There is no bruising noted. DP PT pulse are palpable. Neuro oriented x3, CN's II-XII intact bilaterally and moves all extremities Sensorium / Orientation: alert Psych Psych Narrative: Patient began to cry when I informed him my concern is that he has an ACL injury. Skin no wounds Lesions: no lesions Rashes: no rashes MDM MDM MDM Narrative Medical decision making narrative: Concern for ACL injury, meniscus injury versus fracture. X-ray was obtained. Radiography Chest X-Ray - ED: Read by ED Physician (4 view x-ray of the knee reveals prior surgical repair of ACL injury. There is no acute fracture. There is an effusion. This was apparently reviewed interpreted by me at 21 0.) Diagnostic Testing: Clinical Impression(s) from Imaging Studies Knee X-Ray 09/20/23 19:35 IMPRESSION: Postsurgical and mild degenerative change. No acute fracture or other significant bony pathology Electronically Signed: Kaden Botello MD at 20:15 EDT , Discharge Plan Triage Chief Complaint: Lower Extremity Injury ED Provider: Justin Rocha Dx/Rx/DC Orders Clinical Impression: Effusion of knee joint, left, Acute injury of left knee cartilage Prescriptions: New hydrocodone-acetaminophen 5-325 mg tablet 1 tab PO Q6H PRN PRN (Reason: Pain) 3 Days Qty: 10 0RF No Action olanzapine [Zyprexa] 5 mg tablet 5 mg PO QHS 30 Days Qty: 30 0RF Primary Care Provider: Care Physician,No Primary Referrals: Vignesh Hoang MD [Non-Staff] - 5-7 Days Care Physician,No Primary [Primary Care Provider] - Activity Restrictions/Additional Instructions: 1. Apply ice 6-10 times a day 2. Use crutches and bear weight as tolerated Print Language: Ug[place]an Disposition Disposition: Home, Self Care
[2023-09-20] MEDS: HYDROcodone Bitartrate/Apap 5/325 Tablet PO (21:06)
== END 2023-09-20 21:17 | disposition home or self-care (01) ==
PROVIDERS: Emergency Provider Emergency Medicine; Visit Provider Emergency Medicine
DX: M25.462 Effusion, left knee (principal); S89.92XA Unspecified injury of left lower leg, initial encounter; W17.2XXA Fall into hole, initial encounter; X50.1XXA Overexertion from prolonged static or awkward postures, initial encounter; F17.210 Nicotine dependence, cigarettes, uncomplicated
CPT/HCPCS: 73564; 99283

== ENCOUNTER 2023-11-15 15:03 | Emergency (ER) | payer MEDICAID, SELFPAY ==
[2023-11-15 15:03] VITALS: BP 141/93; PULSE 104; RESP 16; TEMP 36.6; O2SAT 97; BMI 30.1
--- NOTE | 2023-11-15 15:15 | EDS_ITS ---
HPI History of Present Illness Chief Complaint: Upper Extremity Injury Detail of Chief Complaint: Right elbow pain Informant: patient Occured/Mechanism Comment: Started after throwing the football with son on Saturday Onset/Context/Timing Onset: Days Context: Sudden Onset Timing: Continuous Quality of Pain: Dull and Aching Location: Lateral and medial aspect of the right elbow Current Severity: Mild Maximum Severity: Moderate Worsened by: Certain movements Relieved by: Rest Associated Symptoms Associated Symptoms: Negative for Parasthesia, Weakness or Loss of Funtion Narrative Narrative: Patient is a 43-year-old male. He has no significant past medical history. Patient was seen walking back from triage. He was holding his right arm. There is no history of direct trauma. He denies paresthesia, anesthesia or motor weakness. Prior similar symptoms: No Recent Illness/Hospitalization: No PFSH PFS Medical History Methamphetamine use disorder, moderate, in early remission Attention deficit hyperactivity disorder PTSD (post-traumatic stress disorder) Generalized anxiety disorder Major depressive disorder, recurrent, moderate Limb weakness Knee pain Chest pain Severe headache Shoulder pain SOB (shortness of breath) Home Medications ?Medication ?Instructions ?Recorded ?Last Taken ?Type olanzapine 5 mg tablet (Zyprexa) 5 mg PO QHS 30 days #30 tabs 12/20/21 Unknown Rx hydrocodone-acetaminophen 5-325mg 1 tab PO Q6H PRN PRN Pain 3 days 09/20/23 Unknown Rx 5mg-325mg #10 TABLETS naproxen 500 mg tablet 500 mg PO BID #14 tabs 11/15/23 Unknown Rx Allergy/AdvReac Type Severity Reaction Status Date / Time No Known Allergies Allergy Verified 11/15/23 15:04 Surgical History History of knee surgery Social History Smoking Status: Current every day smoker tobacco type: cigarettes alcohol intake: never ROS ROS ED Musculoskeletal Musculoskeletal: Reports other Details: Right elbow pain ; Denies back pain, myalgias or neck pain Neurologic Neurologic: Reports paresthesias; Denies weakness Hematologic/Lymphatic Hematologic/Lymphatic: Denies easy bleeding or easy bruising EXAM Physical Exam Const Vital Signs: 11/15/23 15:03 Temperature 97.9 F Temperature Source Temporal Pulse Rate 104 H Respiratory Rate 16 Blood Pressure 141/93 H Blood Pressure Mean 109 Pulse Ox 97 Oxygen Delivery Method Room Air Positive well nourished and well developed General Appearance ED: well developed and NAD HEENT Reports moist mucous membranes normocephalic and atraumatic Eyes PERRL and EOMs intact bilaterally Resp normal respiratory effort Cardio regular rate and regular rhythm Extremity normal to inspection and full ROM Extremity Narrative: There is pain outpatient over the lateral and medial epicondyle. Having him flex and pronate against resistance cause him discomfort laterally and having him extend and supinate against resistance causes him discomfort medially. He has tenderness over the medial and lateral epicondyle. There is no pain ovation over the radial head or the olecranon process. Axillary, median, radial and ulnar function intact. Radial pulses 2+. Neuro oriented x3 and CN's II-XII intact bilaterally Psych mental status grossly normal Skin Lesions: no lesions Rashes: no rashes Trauma: no lacerations or abrasions MDM MDM MDM Narrative Medical decision making narrative: Patient's history and physical is consistent with a lateral epicondylitis/medial epicondylitis. He has no contraindication to NSAIDs. He received first dose of Naprosyn in department. He was instructed to go to the pharmacy and get a band the change of the fulcrum of the tendons. Imaging is not indicated since was no history of direct trauma. Discharge Plan Triage Chief Complaint: Upper Extremity Injury ED Provider: Justin Rocha Dx/Rx/DC Orders Clinical Impression: Epicondylitis, lateral, right, Medial epicondylitis of right elbow Instructions: Treating Tennis Elbow, ED Tennis Elbow Prescriptions: New naproxen 500 mg tablet 500 mg PO BID Qty: 14 0RF No Action olanzapine [Zyprexa] 5 mg tablet 5 mg PO QHS 30 Days Qty: 30 0RF hydrocodone-acetaminophen 5-325 mg tablet 1 tab PO Q6H PRN PRN (Reason: Pain) 3 Days Qty: 10 0RF Primary Care Provider: Care Physician,No Primary Referrals: Care Physician,No Primary [Primary Care Provider] - Activity Restrictions/Additional Instructions: If there is no improvement in 1 week follow-up with your doctor assigned to you by your insurance carrier care source. The name of your provider is printed on your insurance card. Print Language: Maltese Disposition Disposition: Home, Self Care Discharge Date/Time: 11/15/23 15:28
[2023-11-15] MEDS: Naproxen 500 MG Tablet PO (15:18)
== END 2023-11-15 15:28 | disposition home or self-care (01) ==
LOC: ED 15:23
PROVIDERS: Emergency Provider Emergency Medicine; Visit Provider Emergency Medicine
DX: M77.11 Lateral epicondylitis, right elbow (principal); M77.01 Medial epicondylitis, right elbow; X58.XXXA Exposure to other specified factors, initial encounter; Y93.89 Activity, other specified; F17.210 Nicotine dependence, cigarettes, uncomplicated
CPT/HCPCS: 99282

== ENCOUNTER 2024-02-13 17:05 | Emergency (ER) | payer MEDICAID, SELFPAY ==
[2024-02-13 17:06] VITALS: BP 149/106; PULSE 112; RESP 16; TEMP 37; O2SAT 98; BMI 31.6
--- NOTE | 2024-02-13 17:15 | EDS_ITS ---
HPI History of Present Illness Chief Complaint: Lower Extremity Injury Detail of Chief Complaint: Injury of the left knee Informant: patient Narrative Narrative: Patient presents with left knee injury that occurred today around 3 PM. Patient states that he was coming down some steps and when he stepped off the last step his left foot went off to the side and the knee buckled and he heard a pop. He fell down to the ground. Denies any other injuries. Now having pain with weightbearing. Patient states that he has had prior reconstruction of that knee in the past. [facility] Medical History Methamphetamine use disorder, moderate, in early remission Attention deficit hyperactivity disorder PTSD (post-traumatic stress disorder) Generalized anxiety disorder Major depressive disorder, recurrent, moderate Limb weakness Knee pain Chest pain Severe headache Shoulder pain SOB (shortness of breath) Home Medications ?Medication ?Instructions ?Recorded ?Last Taken ?Type olanzapine 5 mg tablet (Zyprexa) 5 mg PO QHS 30 days #30 tabs 12/20/21 Unknown Rx hydrocodone-acetaminophen 5-325mg 1 tab PO Q6H PRN PRN Pain 3 days 09/20/23 Unknown Rx 5mg-325mg #10 TABLETS naproxen 500 mg tablet 500 mg PO BID #14 tabs 11/15/23 Unknown Rx hydrocodone-acetaminophen 5-325mg 1 tab PO Q4H PRN PRN Pain 2 days 02/13/24 Unknown Rx 5mg-325mg #10 TABLETS Allergy/AdvReac Type Severity Reaction Status Date / Time No Known Allergies Allergy Verified 02/13/24 17:05 Surgical History History of knee surgery Social History Smoking Status: Current every day smoker tobacco type: cigarettes alcohol intake: never ROS ROS ED Review of Systems ROS Unobtainable: other Constitutional Constitutional ED: Reports lethargy; Denies chills, fever(s), sweats or weight loss Eyes Eyes: Denies blurry vision, change in vision or diplopia ENT ENT ED: Denies rhinorrhea or sore throat Cardiovascular Cardiovascular: Denies chest pain, orthopnea or racing heartbeat Respiratory/Chest Respiratory/Chest: Denies cough, dyspnea, dyspnea on exertion, orthopnea or sputum Gastrointestinal Gastrointestinal: Denies abdominal pain, diarrhea, nausea or vomiting Genitourinary Genitourinary ED: Denies dysuria, hematuria or urinary frequency Musculoskeletal Musculoskeletal: Reports other Details: Left knee pain/injury ; Denies arthralgias, back pain, myalgias or neck pain Integumentary Denies abscess, Abrasions or rash Neurologic Neurologic: Denies headache(s) or weakness Psychiatric Psychiatric: Denies anxiety, depression or suicidal thoughts Endocrine Endocrinology: Denies polydipsia, polyphagia or polyuria Hematologic/Lymphatic Hematologic/Lymphatic: Denies easy bleeding, easy bruising or lymphadenopathy Allergic/Immunologic Allergic/Immunologic ED: Denies mouth swelling, tongue swelling or urticaria EXAM Physical Exam Const Vital Signs: 02/13/24 17:06 Temperature 98.6 F Temperature Source Temporal Pulse Rate 112 H Respiratory Rate 16 Blood Pressure 149/106 H Blood Pressure Mean 120 Pulse Ox 98 Oxygen Delivery Method Room Air Positive well nourished and well developed General Appearance ED: well developed and NAD HEENT Reports TM's clear and moist mucous membranes normocephalic and atraumatic; Negative for trauma or tenderness Tympanic Membrane ED: Yes TM's clear Eyes PERRL and EOMs intact bilaterally General Eye ED: Negative for pale conjunctiva or scleral icterus Neck no lymphadenopathy, supple and no JVD General: Negative for tenderness Chest Wall inspection of chest normal and palpation of chest normal Chest: Negative for tenderness Resp normal respiratory effort and clear to auscultation bilaterally Effort and Inspection: Negative for respiratory distress or pain with movement Auscultation: Negative for rhonchi, wheezes or diminished lung sounds Cardio regular rate, regular rhythm, S1 normal heart sound, S2 normal heart sound and no murmurs Peripheral Pulses: pulses 2+ throughout GI normal to inspection, nondistended, normoactive bowel sounds, soft to palpation, non-tender, non-distended and no masses Back/Spine no CVA tenderness and no thoracic nor lumbar tenderness Extremity Extremity Narrative: Left knee-patient has small joint effusion superior to the patella. Pain with flexion and extension but he is able to completely flex and extend the knee. Ligamentous exam difficult as patient having discomfort. No obvious laxity noted on exam. He is neurovascular intact distally. General Extremety ED: Negative for edema General Extremity: Negative for edema Neuro oriented x3, CN's II-XII intact bilaterally, no sensory deficits noted and gait normal Sensorium / Orientation: awake, alert, oriented to person, oriented to place and oriented to time Motor Exam: strength 5/5 throughout and strength abnormal Psych mental status grossly normal Skin no rashes or lesions noted and no wounds MDM MDM MDM Narrative Medical decision making narrative: Patient presents with injury to his left knee. X-rays obtained interpreted by myself as no evidence of fracture or dislocation. Will be given a knee immobilizer and referred back to his orthopedic surgeon. He is instructed to ice and elevate the extremity. He will be given a prescription for few [place] for pain. Patient did not want crutches as he has them at home. Radiography Diagnostic Testing: Clinical Impression(s) from Imaging Studies Knee X-Ray 02/13/24 17:20 IMPRESSION: Trace effusion and mild degenerative changes. Electronically Signed: Tyrell Arteaga DO at 20:04 EST Reading Location ID and State: [address] [place] [address] Tel [phone], Service support , 4 view x-rays of the left knee obtained interpreted by myself as no evidence of fracture or dislocation. There was evidence of prior ACL repair. Official report from radiology pending. Discharge Plan Triage Chief Complaint: Lower Extremity Injury ED Provider: Earline Dong Dx/Rx/DC Orders Clinical Impression: Left knee sprain Instructions: ED Knee Sprain Prescriptions: New hydrocodone-acetaminophen 5-325 mg tablet 1 tab PO Q4H PRN PRN (Reason: Pain) 2 Days Qty: 10 0RF No Action olanzapine [Zyprexa] 5 mg tablet 5 mg PO QHS 30 Days Qty: 30 0RF hydrocodone-acetaminophen 5-325 mg tablet 1 tab PO Q6H PRN PRN (Reason: Pain) 3 Days Qty: 10 0RF naproxen 500 mg tablet 500 mg PO BID Qty: 14 0RF Primary Care Provider: Care Physician,No Primary Referrals: Vignesh Hoang MD [Non-Staff] - 3-5 Days Care Physician,No Primary [Primary Care Provider] - Print Language: Setswana Disposition Disposition: Home, Self Care Discharge Date/Time: 02/13/24 18:41
--- NOTE | 2024-02-13 17:20 | RAD_ITS ---
INDICATION: injury EXAMINATION/TECHNIQUE: X-RAY - LEFT XR Knee Complete 4 Views COMPARISON: FINDINGS: SOFT TISSUES: No soft tissue swelling or gas. No radiopaque foreign body. Trace suprapatellar effusion. BONES/JOINTS: No acute fracture or subluxation.. Normal alignment. Mild spurring at the femorotibial and patellofemoral compartments. Slightly narrowed medial femorotibial compartment.. Postsurgical changes from ACL repair surgery. No sclerotic or destructive changes observed. RAD/Knee 4 or More Views IMPRESSION: Trace effusion and mild degenerative changes. Electronically Signed: Tyrell Arteaga DO at 20:04 EST Reading Location ID and State: [facility] / [place] Tel [phone], Service support ,
== END 2024-02-13 18:41 | disposition home or self-care (01) ==
PROVIDERS: Emergency Provider Emergency Medicine; Visit Provider Emergency Medicine
DX: S83.92XA Sprain of unspecified site of left knee, initial encounter (principal); M25.462 Effusion, left knee; W10.9XXA Fall (on) (from) unspecified stairs and steps, initial encounter; F17.210 Nicotine dependence, cigarettes, uncomplicated; Z79.899 Other long term (current) drug therapy
CPT/HCPCS: 73564; 99283

== ENCOUNTER 2024-02-26 08:00 | Outpatient (RCR) | payer MEDICAID, SELFPAY ==
--- NOTE | 2024-02-26 10:10 | BH.SGPN.GN ---
Behaviors/Verbalizations/Mental Status: [] Pt alert and oriented, casually dressed and groomed. Eye contact fair. Motor activity appropriate. Speech within normal limits. Affect congruent, mood depressed. Thoughts linear, logical, no signs of hallucinations or delusions. Client Response/Progress/Benefit: [] Pt was a passive participant during small group discussions. Semi-attentive during psychoeducation on self-sabotage and the reasons people self-sabotage, and impacts on mental health; however, did struggle with being distracted and leaving group several times. Limited engagement and did not complete the self-reflection activity. Limited benefit due to lack of engagement. Pt to continue IOP tx to prevent decompensation, stabilize mood, increase healthy coping, and improve functioning. Narrative Note: []
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
--- NOTE | 2024-02-26 10:44 | BH.DR.ITP ---
Initial Treatment Plan Patient Information Visit Information: ADMISSION DATE: EXPECTED LOS: 4-6 weeks Problems/Symptoms Problem #1:: Depression Symptom:: Sadness, hopelessness, worthlessness, anhedonia, biological disruption of sleep, low energy, decreased concentration, guilt, passive thoughts of , fleeting, passive suicidal ideation Problem #2:: Anxiety Symptom:: Worry, rumination, panic attacks, avoidance
--- NOTE | 2024-02-26 11:05 | BH.SGPN.GN ---
Behaviors/Verbalizations/Mental Status: []Pt alert and oriented, casually dressed and groomed. Eye contact good. Motor activity appropriate. Speech within normal limits. Affect congruent, mood depressed. Thoughts linear, logical, no signs of hallucinations or delusions. Client Response/Progress/Benefit: []Pt responded well to session, at times distracted by phone use, but sharing when asked. Pt worked on his mental health wellness garden picture and discussed things that contribute to mental wellness in his life. With peers, pt discussed things that would sabotage one's mental health wellness and added it to the garden metaphor. Pt identified things he personally does to sabotage as letting toxic people into his life and not taking medications. Pt attentive during psychoeducation on ways to reduce self-sabotage and pt selected delay, distract, decide as the skill that could help him reduce self-sabotaging behaviors. Pt appeared to benefit from learning skills and gaining awareness of self-sabotaging behaviors. Pt will continue IOP tx to prevent decompensation, improve daily functioning, and reduce use of healthy coping skills. Narrative Note: []
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
--- NOTE | 2024-02-26 15:36 | BH.MTP ---
Master Treatment Plan Patient Information Program Physician:: Dr. Charo Lucero Primary Therapist:: Marycarmen FAY Psychiatric Diagnoses Psychiatric Diagnoses:: Major depressive disorder, recurrent, severe without psychosis; Panic disorder; PTSD; ADHD; Methamphetamine use disorder (sober x 5 months); Alcohol use disorder in full remission for 8 years Diagnosis Code(s):: F 33.2 Estimated LOS Estimated LOS (in weeks):: 6 Problem/Goal #1 Problem/Goal #1 Stated Goal:: Pt will increase mood stability by reducing hopelessness, worthlessness, and passive SI caused by MDD. Description of Barriers: Pt reports avoidance, negative thinking patterns, and difficulty concentrating due to ADHD. Pt has an extensive substance abuse and legal hx as well which may impede consistent progress as well. Functional Impact: Pt is a 43-year-old male with a history of MDD, REBECCA, PTSD, ADHD, and substance abuse. Pt was referred to [facility] after completing two rehabilitation programs and he is now 5 months sober from meth. Pt reports his mental health is what led to his chronic substance use and he wants to get help. At admission, pt endorses a depressed mood with passive SI, poor sleep, lack of motivation, lack of energy, hopelessness, worthlessness, and isolation. Pt also endorses daily panic attacks, inability to sit still and concentrate, and racing thoughts. Pt's symptoms are impacting his ability to function and manage life stressors. Goal Relevant Strengths/Supports: Pt has signed ROIs for both of his probation officers and has been sober for 5 months from meth. Objectives Objective #1: Stated Objective: Pt will learn and utilize 2-3 healthy coping strategies to better manage depressive symptoms and reduce suicidal ideations as shown by a decrease of DMS-5 symptoms for depression. Interventions: Through group and individual sessions, therapist will help pt identify triggers and warning signs of depression including emotional, physical, and behavioral changes. Therapist will teach pt various coping skills to manage symptoms and give pt tangible resources to use to regulate emotions. Therapist will use cognitive restructuring techniques and help pt gain awareness of negative thoughts that reinforce guilt and depression. Therapist will provide psychoeducation on maintenance cycles and help pt learn ways to break unhealthy maintenance cycles. Therapist will help pt incorporate behavioral activation and assist pt in setting SMART goals. Discharge Criteria: Pt will have met this goal when can report learning and using at least 2 coping skills to manage depressive symptoms and reduce isolation. Additionally, pt will have met this goal when pt's DSM-5 scores for depression decrease Target Date: 04/08/24 Review Date: 03/18/24 Status: open Problem/Goal #2 Problem/Goal #2 Stated Goal:: Will reduce intensity of anxiety and panic through increasing and distress tolerance skills Description of Barriers: Pt reports avoidance, negative thinking patterns, and difficulty concentrating due to ADHD. Pt has an extensive substance abuse and legal hx as well which may impede consistent progress as well. Functional Impact: Pt is a 43-year-old male with a history of MDD, REBECCA, PTSD, ADHD, and substance abuse. Pt was referred to [facility] after completing two rehabilitation programs and he is now 5 months sober from meth. Pt reports his mental health is what led to his chronic substance use and he wants to get help. At admission, pt endorses a depressed mood with passive SI, poor sleep, lack of motivation, lack of energy, hopelessness, worthlessness, and isolation. Pt also endorses daily panic attacks, inability to sit still and concentrate, and racing thoughts. Pt's symptoms are impacting his ability to function and manage life stressors. Goal Relevant Strengths/Supports: Pt has signed ROIs for both of his probation officers and has been sober for 5 months from meth. Objectives Objective #1: Stated Objective: Pt will identify 2-3 anxiety triggers and 2 coping skills to use when feeling anxious to manage anxiety as shown by reducing DSM-5 scores for anxiety Interventions: Therapist will provide education on anxiety, avoidance behaviors, and maintenance cycles. Therapist will help pt explore personal symptoms and warning signs of anxiety. Therapist will teach pt coping skills to improve emotional regulation, mindfulness, and distress tolerance to help pt cope with anxiety in the moment. Discharge Criteria: Pt will have accomplished this goal when she can identify at least 2 triggers and report using 2 coping skills to manage anxiety. Additionally, pt will have accomplished this goal AEB reduction of DSM-5 scores for anxiety. Target Date: 04/08/24 Review Date: 03/18/24 Status: open
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
--- NOTE | 2024-03-03 10:27 | BH.COMM ---
Communication Note Communication with Client Communication Note: Pt left from group early due to illness on 02/27/24 and his sister called to cancel for him on 02/28/24 due to illness. Pt is scheduled for IOP again on 03/04/24.
--- NOTE | 2024-03-04 09:00 | BH.SGPN.GN ---
Behaviors/Verbalizations/Mental Status: [] Pt alert and oriented, casually dressed and groomed. Eye contact good. Motor activity appropriate. Speech within normal limits. Affect congruent, mood content. Thoughts linear, logical, no signs of hallucinations or delusions. Reviewed pt?s symptom tracker, no risk for suicidal ideation, plan, or intent 03/04/24 Client Response/Progress/Benefit: [] Pt was an active participant in group discussions. Attentive. Able with some prompting to identify mental health wins including getting to group today and explained that although mornings are difficult for him, he reminded himself of the importance of focusing on his mental health. Additional win noted as getting up in time to put his kids on the bus which is something he is not often able to do. Shared that Lolita will be 6 months sober for him and he is reminding himself of all that he missed out on with his kids to help in maintaining sobriety. Benefited from group support, encouragement, and feedback. Will continue in IOP to prevent decompensation, promote mood stability, and continue to improve use of thought challenging. Narrative Note: []
--- NOTE | 2024-03-04 10:05 | BH.SGPN.GN ---
Behaviors/Verbalizations/Mental Status: []Client alert and oriented, casually dressed and groomed. Eye contact fair. Motor activity appropriate. Speech within normal limits. Affect congruent, mood euthymic. Thoughts linear, logical, no signs of hallucinations or delusions. Client Response/Progress/Benefit: [] Pt was an attentive an active participant, AEB taking notes and providing input in group discussion when prompted. Attentive during psychoeducation. Pt shared when he doesn't engage in self-care he will feel like I'm on E and start messing things up. Pt engaged during interactive discussion in which the group defined self-care and discussed its benefits. Group discussed barriers to engaging in self-care. Group members together came up with guilt, time, ?people pleasing?, not knowing what to do, and perception that its unproductive as barriers to engage in self-care. Pt participated in small groups where they worked to identify and challenge common self-care ?myths?. Benefited from increased awareness of self-care, its benefits, and the consequences of not utilizing self-care strategies. Will continue IOP tx to promote use of healthy coping skills, challenge distorted/negative thoughts, and prevent decompensation.
--- NOTE | 2024-03-04 11:05 | BH.SGPN.GN ---
Behaviors/Verbalizations/Mental Status: []Client alert and oriented, casually dressed and groomed. Eye contact poor-on phone. Motor activity appropriate. Speech within normal limits. Affect congruent, mood euthymic. Thoughts linear, logical, no signs of hallucinations or delusions. Client Response/Progress/Benefit: [] Pt engaged in discussion reviewing different areas of self-care and completing self-assessment of current self-care, as well as providing input throughout discussion. Pt was on his phone several times during psychoeducation. Did well to complete self-care self-assessment worksheet. Pt identified how pt is doing in each category and what self-care activities pt wants to start using. Pt selected physical self-care to begin practicing more consistently. Pt plans to do this by ?working out more.? Appeared to benefit from completing the self-care evaluation and gaining insights into current self-care practices, as well as identifying areas in which pt would like to improve upon. Pt will continue IOP tx to prevent decompensation, improve distress tolerance, and maintain sobriety. Narrative Note: []
--- NOTE | 2024-03-06 08:59 | BH.COMM ---
Communication Note Communication with Client Communication Note: Pt canceled his scheduled IOP group and individual session for today 03/06/24. Pt also canceled his IOP session yesterday 03/05/24 due to another medical appointment. Pt has been to [facility] twice in two weeks. Pt is aware of the attendance rule as he signed it during initial paperwork. Pt and therapist will discuss attendance next week and if pt's attendance does not increase, pt can be discharged from [facility].
--- NOTE | 2024-03-11 09:00 | BH.SGPN.GN ---
Behaviors/Verbalizations/Mental Status: [] Client alert and oriented, casual appearance. Eye contact fair. Motor activity appropriate. Speech within normal limits. Affect congruent, mood anxious. Thoughts linear, logical, no signs of hallucinations or delusions. Reviewed client's symptom tracker, no risk for suicidal ideation, plan, or intent. Client Response/Progress/Benefit: [] Client responded well to session AEB listening to others and sharing thoughts/feelings. Per daily symptom tracker client reports a 4/5 for depression and 4/5 for anxiety. Client reported current stressor is having a warrant out for his arrest in a different county. Client shared the police were at his mom's house yesterday looking for him to arrest. Client stated a mental health positive was choosing to reach out to the county and explain that he had missed a court appearance because he was in half-way in a different county. Client reported the courts told him to write a letter to the fuel cell test engineer explaining the situation and his warrant would be lifted. Client reported in the past he would've went across state lines to avoid arrest and is glad this time he chose to communicate with the courts instead. Appeared to benefit from support from peers. Will continue IOP tx to continue building healthy coping skills, challenge distortions, and prevent decompensation. Narrative Note: []
--- NOTE | 2024-03-11 11:10 | BH.SGPN.GN ---
Behaviors/Verbalizations/Mental Status: []Eye contact is good. Motor activity is appropriate. Appearance is casual. Speech is Appropriate. Mood is content. Affect is congruent. Thoughts are linear and logical. No evidence of psychosis. Client Response/Progress/Benefit: []Pt responded well to session AEB listening attentively to peers and taking notes throughout. Reports connecting with porous boundaries with his kids and partner but rigid with his mother and sisters. Reflected that this has impacted his ability to trust others. Participated in group discussion brainstorming various strategies for improving healthy boundary setting. Seemed to benefit from increased awareness of how different boundary styles can impact mental health. Will continue IOP tx to prevent decompensation, improve daily functioning, and increase mood stability. Narrative Note: []
--- NOTE | 2024-03-11 14:55 | BH.MDN ---
Multi-Disciplinary Note Note 30-min Individual: Time Started:: 10:50 Date: 03/11/24 Purpose of session/treatment goals addressed:: To discuss current triggers, stressors, and symptoms. Another goal was to practice calming skills to build distress tolerance. Eye Contact:: Fair Motor Activity:: Appropriate Appearance:: Casual Speech:: Appropriate Mood:: Anxious Affect:: Congruent Thoughts:: [employer] Interventions:: thought challenging, motivational interviewing, CBT techniques, mindfulness skills (practicing grounding skills) and goal setting (goal to practice one mindfulness skill a day. ) Client Response:: Pt responded well to session, open to meeting with therapist. Pt shared he is feeling okay and that he is better than he was a few days ago. Pt reported a few days ago the police went to pt's mother's house looking for pt because pt had a warrant out for his arrest. Pt stated he became highly anxious because a new charge could lead to pt going to [facility] for 6 years. Pt shared he contacted the courts and found out it was an old charge and he needed a letter. Pt is much less anxious now, knowing he does not have to worry about an arrest. Pt stated his probation has been going well and he has been able to maintain sobriety, with next week being 6 months sober. Pt has been living with his two youngest children and their mother which has been both nice and stressful. Pt stated it has been difficult adjusting to parenting with his as they have different approaches. Pt shared she is more of an authoritarian parent which leads to a lot yelling at the children per pt's report. Pt stated she also does not have a lot of boundaries with the children either, so they struggle with maintaining a routine. Pt shared his parents yelled and cussed at him a lot during childhood, so pt wants to avoid that for his children. Pt feels he is doing a good job of giving his children boundaries without yelling at them. Pt receptive to practicing grounding skills to help with his anxiety and to help regulate himself when there is stress with the children. Pt is familiar with box breathing and he learned (and practiced) the 5-senses in session. Pt encouraged to practice this at home with his children or by himself on a daily basis. Risks/Concerns:: Pt denies any suicidal ideations, plan, or intent. Pt denies any thoughts of . Progress Toward Goals/Plan:: Pt has struggled with consistent attendance, so this is the second time therapist has been able to meet with pt individually. Pt reports he is doing okay, good and feels that the medication is helping. Pt continues to have physical pain caused by his knee injury, but pt reported he plans to get surgery in 2024. Pt has legal and family stress he is trying to cope with and he was open to learning about calming skills. Pt will continue IOP tx to prevent decompensation, gain healthy coping skills, and improve daily functioning. Time Stopped:: 11:10
--- NOTE | 2024-03-12 09:00 | BH.SGPN.GN ---
Behaviors/Verbalizations/Mental Status: [] Pt alert and oriented, casually dressed and groomed. Eye contact fair. Motor activity appropriate. Speech within normal limits. Affect congruent, mood anxious. Thoughts linear, logical, no signs of hallucinations or delusions. Reviewed pt?s symptom tracker, no risk for suicidal ideation, plan, or intent 03/12/24 Client Response/Progress/Benefit: []Pt was an active participant in group discussions. Attentive. Able to identify mental health wins including getting to IOP today and not getting overwhelmed when pt was playing games with his son. Pt's stressor today is he meets with his unemployment insurance hearing officer today and although pt thinks it will go well, this makes pt nervous. Pt stated pt is feeling happy and anxious this morning. Pt receptive to feedback from peers which pt reported was helpful. Progress noted. Benefited from group support, encouragement, and feedback. Will continue in IOP to prevent decompensation, improve daily functioning, and increase distress tolerance. Narrative Note: []
--- NOTE | 2024-03-12 10:10 | BH.SGPN.GN ---
Behaviors/Verbalizations/Mental Status: []Pt alert and oriented, casually dressed and groomed. Eye contact good. Motor activity appropriate. Speech within normal limits. Affect congruent, mood content. Thoughts linear, logical, no signs of hallucinations or delusions. Client Response/Progress/Benefit: [] Pt engaged participant AEB listening attentively to others and providing input throughout group. Pt worked within their small group to identify strategies to manage inappropriate guilt. Shared a personal example of inappropriate guilt as feeling guilty for grounding his kids for misbehaving. Insight this leads to fear they will hate him and not following through with the punishment. Pt wants to work on combatting inappropriate guilt by challenging distortions and improving emotion regulation skills. Pt seemed to benefit from learning about strategies to manage appropriate and inappropriate guilt. Pt will continue IOP tx to reduce promote mood stability, reinforce healthy coping, and prevent decompensation. Narrative Note: []
--- NOTE | 2024-03-12 10:10 | BH.SGPN.GN ---
Behaviors/Verbalizations/Mental Status: []Pt alert and oriented, casually dressed and groomed. Eye contact good. Motor activity appropriate. Speech within normal limits. Affect congruent, mood anxious. Thoughts linear, logical, no signs of hallucinations or delusions. Client Response/Progress/Benefit: [] Pt was an engaged participant AEB listening attentively to others, taking notes, and providing feedback in small group discussions. Attentive during psychoeducation AEB by note taking and providing some input. Pt worked along with peers in small groups to define inappropriate guilt and appropriate guilt. Worked well in small group with peers where they identified example of inappropriate vs appropriate guilt, and the impact inappropriate guilt can have on MH. Pt identified a personal example of inappropriate guilt as feeling bad when he has to set boundaries with his children. Benefited from increased awareness of guilt and the differences between appropriate and inappropriate guilt. Plan is to continue in IOP to prevent decompensation, improve daily functioning, and gain healthy coping skills. Narrative Note: []
--- NOTE | 2024-03-12 11:45 | PCM.BH.PN_ITS ---
Progress Note Progress Note: History of Present Illness/Interim History: The patient is a 43-year-old single male with a history of anxiety, depression, PTSD, ADHD, methamphetamine use disorder (sober x 5 months), alcohol use disorder (sober x 8 years) who is seen in follow-up at the [facility] behavioral health IOP. Patient is currently on probation and says that his stress increased in the past week or so because he had missed a court date while in care home in the past and the police went to his mom's house looking to arrest some but he worked it out he was not arrested for this but this was very stressful for him. He states that he thinks the medication might be helping a little because he thinks he would have been handling this last stress in the past week much worse had a not been on the medications. We added Zyprexa and BuSpar 2 weeks ago. However overall the patient said his situation is pretty much the same in terms of his depression and anxiety remain pretty severe. He is having panic attacks once a day and sometimes twice which is less than before. But he states that his sadness, hopelessness, worthlessness, low motivation, anhedonia, low energy, guilt, passive thoughts of and occasional fleeting, passive suicidal ideation remains the same. He still states that he would never kill himself because of his children. He still denies homicidal ideation, hallucinations, delusions. Appetite and weight he says are stable. He is still staying with the mother of his 2 youngest children and says they are getting along okay. He remains sober from all drug use. Current Psychiatric Medications: [] Zyprexa 5 mg p.o. nightly (x 2 weeks); BuSpar 10 mg p.o. 3 times daily Mental Status Examination: [] The patient is a 43-year-old male who appears older than his stated age and is casually dressed and groomed with fair hygiene. He is ambulatory with a normal gait and has no psychomotor agitation or retardation. He is cooperative and pleasant during the evaluation. Eye contact is good and speech is normal rate and rhythm and fluent without pressure. Mood is depressed and anxious. Affect is mildly constricted. Thought process is goal-directed and organized. Thought content: There is evidence of passive thoughts of and fleeting, passive suicidal ideation. There is no evidence of active suicidal ideation, homicidal ideation, hallucinations or delusions. Reality testing is intact. Intelligence is average. Impulsivity is high. Judgment is intact. Insight is fair. Diagnoses: [] 1. Major depressive disorder, recurrent, severe without psychosis 2. Panic disorder 3. PTSD 4. ADHD 5. Methamphetamine use disorder (sober x 5 months) 6. Alcohol use disorder in full remission for 8 years 7. Primary support and work issues Plan: [] The patient will continue the IOP in behavioral health at [facility] as the structure, support, education and group therapy will hopefully prevent worsening of the patient's symptoms which might require hospitalization. He felt safe during the interview and if it anytime he does not feel safe he has agreed to let us know or go to the emergency room. The risk, options, possible complications and side effects of the medications were discussed again with the patient and he understands and accepts these. He agrees to not use energy drinks and to decrease his caffeine use and to stay sober from all drug use. He agrees to increase Zyprexa to 10 mg p.o. nightly. He will continue to follow-up with his outpatient providers and I will see the patient in follow-up in several weeks.
--- NOTE | 2024-03-13 09:00 | BH.SGPN.GN ---
Behaviors/Verbalizations/Mental Status: [] Eye contact is good. Motor activity is appropriate. Appearance is casual. Speech is Appropriate. Mood is anxious/irritable. Affect is congruent. Thoughts are linear and logical. No evidence of psychosis. Reviewed daily check in sheet and no reports of suicidal ideations or intent. Client Response/Progress/Benefit: [] Pt was an active participant in group discussions. Attentive. Symptom tracker notes a 1/5 for anxiety. ? I feel great today?. Scores show a significant improvement since earlier this week. Credits improvement on getting a great deal of rest and sleep. Elaborated on parenting stressors and getting accustomed to new living arrangements. Currently living outside of [place] which he believes will help with his sobriety as [place] had several using triggers. Progress noted. Benefited from group support, encouragement, and feedback. Will continue in IOP to prevent decompensation, stabilize anxiety, and increase healthy coping skills. Narrative Note: []
--- NOTE | 2024-03-13 10:10 | BH.SGPN.GN ---
Behaviors/Verbalizations/Mental Status: [] Client alert and oriented, casually dressed and groomed. Eye contact good. Motor activity appropriate. Speech within normal limits. Affect congruent, mood content. Thoughts linear, logical, no signs of hallucinations or delusions. Client Response/Progress/Benefit: [] Client was an active participant AEB contributing to discussion, taking notes, and engaging in group activity. Connected with the topic of pitfalls and listened to group discussion on barriers that prevent from choosing a healthier path to mental wellness. Group worked together to identify examples of personal pitfalls. Pt identified personal pitfalls to include: not following through, lack of communication with supports, avoidance. Client benefited from group as client learned to better identify potential barriers to improving mental health symptoms. Client will continue IOP tx to improve mood stability, promote use of healthy coping skills, and prevent decompensation. Narrative Note: []
--- NOTE | 2024-03-13 11:10 | BH.SGPN.GN ---
Behaviors/Verbalizations/Mental Status: []Client alert and oriented, casually dressed and groomed. Eye contact good. Motor activity appropriate. Speech within normal limits. Affect congruent, mood anxious. Thoughts linear, logical, no signs of hallucinations or delusions. Client Response/Progress/Benefit: [] Pt receptive of session, engaged throughout AEB Pt actively listening and contributing to discussion as well as taking notes.? Pt participated in the experiential activity and did well to communicate ideas with peers and manage emotions. Pt attentive as group processed how the emotions and perspective of the group impacted the activity. Group worked together to identify different coping skills to help manage pitfalls. Pt identified a pitfall they struggle with as ?giving up easily? and being hard on himself. Pt plans to work on their pitfall by taking breaths and taking a step back. Benefited from identifying personal pitfalls and strategies to overcome these pitfalls. Pt will continue IOP tx to prevent decompensation, improve daily functioning, and gain skills to maintain sobriety. Narrative Note: []
--- NOTE | 2024-03-20 09:34 | BH.COMM ---
Communication Note Communication with Client Communication Note: Pt has been sick this week and was scheduled for IOP tx today. However, pt went to urgent care and was diagnosed with the flu. Pt brought in a letter from urgent care and will be excused from IOP tx today. Due to pt not being able to attend this week, pt did not get an individual therapy session. Pt is scheduled for 03/23/24.
--- NOTE | 2024-03-24 09:05 | BH.SGPN.GN ---
Behaviors/Verbalizations/Mental Status: [] Pt alert and oriented, casually dressed and groomed. Eye contact good. Motor activity appropriate. Speech within normal limits. Affect congruent, mood euthymic. Thoughts linear, logical, no signs of hallucinations or delusions. Reviewed pt?s symptom tracker, no risk for suicidal ideation, plan, or intent 03/24/24 Client Response/Progress/Benefit: [] Pt was an active participant in group discussions. Attentive. Able to identify mental health wins including recovering from illness and being able to attend group for the first time in over a week. Additional win noted as being sober for [place] in many years and feeling proud of himself for being able to maintain his sobriety. Stressor noted as not knowing how to spend new year's sober but did well to take suggestions from the group and reflect on being able to spend time with his kids. Benefited from group support, encouragement, and feedback. Will continue in IOP to prevent decompensation, promote mood stability, and continue to maintain sobriety. Narrative Note: []
--- NOTE | 2024-03-24 10:10 | BH.SGPN.GN ---
Behaviors/Verbalizations/Mental Status: [] Eye contact is good. Motor activity is appropriate. Appearance is casual. Speech is Appropriate. Mood is euthymic. Affect is congruent. Thoughts are linear and logical. No evidence of psychosis. Client Response/Progress/Benefit: [] Pt was an active participant in group discussions. Attentive during psychoeducation. Contributed during interactive discussions in which peers attempted to define crisis. Group identified crisis examples. Group also worked together to identify warning signs and unhealthy responses to crisis which included shutting down, isolation, avoidance, over-thinking, disordered eating, and self-harm. Pt identified top 3 warning signs as: urges to relapse, increased negative thinking, and apathy. Benefited from increased understanding of crisis and awareness of personal responses to crisis. Pt will continue IOP tx to promote use of healthy coping skills, challenge negative/distorted thoughts, and prevent decompensation.
--- NOTE | 2024-03-24 11:15 | BH.SGPN.GN ---
Behaviors/Verbalizations/Mental Status: []Pt alert and oriented, appropriate grooming/appearance. Eye contact fair. Motor activity appropriate. Speech within normal limits. Affect congruent, mood euthymic. Thoughts linear, logical, no signs of hallucinations or delusions. Client Response/Progress/Benefit: [] Pt was an active participant in group discussions. Attentive during psychoeducation. In small group pt along with peers developed an active plan for their crisis warning signs. Pt identified three crisis warning signs as well as an action plan for each. One crisis warning sign was urges to use drugs/alcohol. Pt identified strategies to help with this such as: opposite action, replacement drinks, and thinking of the consequences.?Benefited from increased awareness of crisis warning signs and by developing crisis intervention strategies. Will continue in IOP to improve distress tolerance, reduce negative thinking, and maintain sobriety. Narrative Note: []
--- NOTE | 2024-03-24 14:51 | BH.MDN_ITS ---
Multi-Disciplinary Note Note 30-min Individual: Time Started:: 08:55 Date: 03/24/24 Purpose of session/treatment goals addressed:: To work on goal #2 of pt's tx plan and to review progress and goals in IOP. Eye Contact:: Good Motor Activity:: Appropriate Appearance:: Casual Speech:: Appropriate Mood:: Euthymic Affect:: Congruent Thoughts:: Linear, Logical and No evidence of hallucinations/delusions noted Staff Interventions:: thought challenging, CBT techniques, mindfulness skills, discharge planning, strengths perspective and other (discussed ways to manage triggers.) Client Response:: Pt responded well to session, open to meeting with therapist. Pt reports feeling pretty good and a little anxious today. Pt has to go get some of his things from his mother's house and his mom is a trigger for use for pt. Pt stated he used a lot while he lived with his mother and she is a piece of shit and she would try and get me in trouble. Pt reports that he has a plan for going over there which includes having his sister pick him up and having a short time frame that he plans to be there. Pt stated he currently has no urges to use and he has been enjoying his time sober with his children who he has not been able to see for a long time. Pt shared this is helping him stay sober, so pt will remind himself of this while he is at his mom's house. Pt stated that vivian will be the first New Year's ever that he will be sober and pt looks forward to it being boring. Pt plans to hang out with his kids and play games. Pt had been sick for Llo[place] and he is finally feeling better so he is happy he gets to be around people for this holiday. Pt encouraged to continue practicing his calming skills even though he feels better. Risks/Concerns:: Pt denies any suicidal ideations, plan, or intent. Pt denies any thoughts of . Progress Toward Goals/Plan:: Pt is making progress towards his tx goals as pt continues to report being sober and feeling more stable. Pt has ongoing stressors with court, legal issues, and family stress but he feels he is doing what I need to be doing. Pt is anxious about what will happen next week when he turns himself in to the courts, but pt and therapist will continue to problem- solve this. Pt is still learning how to regulate his emotions as a sober person. Pt will continue IOP tx to promote mood stability, increase distress tolerance, and improve daily functioning. Time Stopped:: 09:15
--- NOTE | 2024-03-24 16:05 | BH.TPR ---
Treatment Plan Review Demographics Date of Admission:: 02/26/24 Date of Treatment Plan Review:: 03/24/24 Admitting Diagnoses:: Major depressive disorder, recurrent, severe without psychosis; Panic disorder; PTSD; ADHD; Methamphetamine use disorder (sober x 5 months); Alcohol use disorder in full remission for 8 years Current Diagnoses:: Major depressive disorder, recurrent, severe without psychosis; Panic disorder; PTSD; ADHD; Methamphetamine use disorder (sober x 5 months); Alcohol use disorder in full remission for 8 years Patient Status Patient's Response to Treatment:: Pt is responding well to treatment and has improved significantly compared to his first two weeks in treatment. Initially, pt was not very engaged in group sessions and he was having issues with attendance. Pt is now more consistent with attendance, only missing if he is ill or has transportation issues. Pt is more engaged in group sessions AEB completing worksheets, taking notes, giving feedback. Pt's overall DSM-5 scores have decreased by 36% since admission and his anxiety is down 50%. Pt is not always consistent with homework such as practicing coping skills, but we are working on this. Status of Current Problems and Symptoms: Pt's symptoms have reduced since admission AEB pt's reduction on the DSM-5. Pt's biggest stressor is his ongoing legal issues as pt feels constantly on edge and worried that they will just send me to retirement for no reason. Pt has been doing well in [facility] and per his report he is following his probation. Pt also had recent stressors with illness which caused pt to miss [facility] for a week and [place] with his family. Pt is sober which is positive, but he is learning how to manage emotions without escape, so this will take time to build up distress tolerance abilities. Progress Problem #1: Problem Name:: Depression and SI Status of Goals:: Objective 1- complete with ongoing work encouraged. Pt?s scores for depression have decreased since admission by 75% and suicidal ideations have decreased by 100%. Pt reports a lot of his mood improvement has come from being around his children and being sober. Team Recommendations:: Team recommends continue work on goals to promote gains and to further improve daily functioning. Pt is also encouraged to set healthy boundaries and communicate with supports. Problem #2: Problem Name:: Anxiety and panic Status of Goals:: Objective 1- complete with ongoing work encouraged. Pt?s symptoms have decreased by 50% since admission. However, pt continues to struggle with using mindfulness and distress tolerance skills which results in pt lashing out or becoming highly irritable when anxious. Pt is receptive to working on this. Team Recommendations:: Team recommends continued goals and objectives to reinforce skills and further reduce symptoms. Team recommends pt continue working on using skills consistently, so they become more habitual and to practice acceptance to avoid more conflict.
== END 2024-03-24 23:59 ==
LOC: BHIOP 08:00
PROVIDERS: Referring Provider Psychiatry & Neurology Psychiatry; Visit Provider Psychiatry & Neurology Psychiatry
DX: F33.2 Major depressive disorder, recurrent severe without psychotic features (principal); F41.0 Panic disorder [episodic paroxysmal anxiety]; F43.10 Post-traumatic stress disorder, unspecified; F90.9 Attention-deficit hyperactivity disorder, unspecified type; F10.91 Alcohol use, unspecified, in remission; F15.11 Other stimulant abuse, in remission
CPT/HCPCS: H2012; H2020; S9480; 90832

== ENCOUNTER 2024-03-26 07:07 | Outpatient (RCR) | payer MEDICAID, SELFPAY ==
--- NOTE | 2024-03-26 09:00 | BH.SGPN.GN ---
Behaviors/Verbalizations/Mental Status: [] Pt alert and oriented, casually dressed and groomed. Eye contact good. Motor activity appropriate. Speech within normal limits. Affect congruent, mood euthymic. Thoughts linear, logical, no signs of hallucinations or delusions. Reviewed pt?s symptom tracker, no risk for suicidal ideation, plan, or intent ?03/26/24. Client Response/Progress/Benefit: [] Pt was an active participant in group discussions. Attentive. Able to identify mental health wins including ?staying sober for ?New Year? which pt shared is the first time since he was 13 years old. Because pt was sober he avoided consequences of being hungover and getting into trouble and he got to spend time with his son. Pt's stressor today is pt plans to go to his mother?s house today to get some of his things, but this is a significant trigger for substance use. Pt shared he feels worried about it, but he also has several support people who are ready to help pt before and after. Pt stated he is feeling content this morning. Pt receptive to feedback from peers which pt reported was helpful. Progress noted. Benefited from group support, encouragement, and feedback. Will continue in IOP to prevent decompensation, increase distress tolerance, and maintain sobriety. Narrative Note: []
--- NOTE | 2024-03-26 10:10 | BH.SGPN.GN ---
Behaviors/Verbalizations/Mental Status: [] Eye contact is good. Motor activity is appropriate. Appearance is casual. Speech is Appropriate. Mood is anxious. Affect is congruent. Thoughts are linear and logical. No evidence of psychosis. Client Response/Progress/Benefit: [] Pt was an active participant in group discussion. Engaged and attentive during psychoeducation and interactive discussion on coping skills, why people use unhealthy coping skills, how to replace unhealthy coping skills, and internal vs external coping skills. Attentive as peers came up with list of unhealthy coping skills. Group discussed the effects of maladaptive coping skills on mental health. Benefited from increased understanding of unhealthy coping skills and the need for developing healthy internal and external coping skills. Actively participated during experiential group activity and was able to related this activity to group topic. Will continue in IOP to prevent decompensation, stablize mood, increase healthy coping, and improve functioning. Narrative Note: []
--- NOTE | 2024-03-26 11:15 | BH.SGPN.GN ---
Behaviors/Verbalizations/Mental Status: []Pt alert and oriented, casually dressed and groomed. Eye contact good. Motor activity appropriate. Speech within normal limits. Affect congruent, mood content. Thoughts linear, logical, no signs of hallucinations or delusions. Client Response/Progress/Benefit: [] Pt responded well to session, taking notes and contributing when prompted. Group discussed the different categories of coping skills which included distraction, emotional release, grounding, self-love, and thought challenging. Pt participated in creating a coping skills ?menu? from the different categories of coping skills. Pt's coping skill menu included: music, box breathing, self-care, and opposite action. Appeared to benefit from increasing repertoire of healthy coping skills. Will continue IOP to prevent decompensation, improve daily functioning, and promote mood stability. Narrative Note: []
--- NOTE | 2024-03-27 09:05 | BH.SGPN.GN ---
Behaviors/Verbalizations/Mental Status: [] Eye contact is poor. Distracted today. Motor activity is appropriate. Appearance is casual. Speech is Appropriate. Mood is anxious and depressed. Affect is congruent. Thoughts are linear and logical. No evidence of psychosis. Reviewed daily check in sheet and no reports of suicidal ideations or intent. Client Response/Progress/Benefit: [] Pt participated at times. Attentive. Daily symptom tracker notes 07/27 for anxiety and 06/27 for depression. He was able to identify mental health wins and healthy habits. Currently very anxious and stressed regarding legal issues. He has an outstanding warrant for ?court costs? in [place] which he cannot afford. He plans on turning himself in this weekend, however due to not being able to pay he will most likely have to stay in care home until he can see a wood heel back liner. Upset and frustrated. In the past he would have utilized unhealthy coping strategies (i.e. drugs) to manage his emotions, however, remains sober. Able to identify while this has initial distress this action will be beneficial in the long-term. Improved decision making. Decreased impulsivity. Progress noted. Benefited from group support, encouragement, and feedback. Will continue in [facility] to prevent decompensation, stabilize mood, increase healthy coping, and improve functioning Narrative Note: []
--- NOTE | 2024-03-27 10:10 | BH.SGPN.GN ---
Behaviors/Verbalizations/Mental Status: [] Eye contact is fair. Motor activity is appropriate. Appearance is casual. Speech is Appropriate. Mood is anxious. Restless and distracted at times. Affect is congruent. Thoughts are linear and logical. No evidence of psychosis. Client Response/Progress/Benefit: [] Pt receptive to session AEB listening attentively to others and taking notes. Pt attentive and contributing on occasion throughout psychoeducation on the cognitive triangle and maintenance cycles. Pt engaged during group discussion reviewing the impact of daily activities and behaviors in either reinforcing unhealthy maintenance cycles and depression or assisting in reducing symptoms (?down? vs ?up? activities). Pt participated during interactive discussion in which peers identified common up activities (pets, sports, positive media, self-care, hobbies, and positive support) and down activities (isolation, being unproductive, ruminating, drugs/alcohol, sad music, sleeping more, unhealthy eating). Appeared to benefit from increased awareness of current behaviors and impact these have on mental health. Will continue IOP to stabilize anxiety, prevent decompensation, increase healthy coping, and improve functioning. Narrative Note: []
--- NOTE | 2024-03-27 11:15 | BH.SGPN.GN ---
Behaviors/Verbalizations/Mental Status: []Eye contact is good. Motor activity is appropriate. Appearance is casual. Speech is Appropriate. Mood is euthymic. Affect is congruent. Thoughts are linear and logical. No evidence of psychosis. Client Response/Progress/Benefit: [] Pt responded well to session, attentive and engaged in group discussions and activity. Actively engaged in continued discussion about up activities and down activities. Active participant as group discussed values and the benefits that knowing one's values can have on one's mental health. Pt completed personal cognitive triangle negative loop. Pt shared value would like to improve is hobbies/recreation. Pt set opposite action goal to help his nephew train for football this weekend. Benefited from increased awareness of their personal values and how incorporating their values into behavioral activation goals can positive impact mental health. Will continue in IOP to improve distress tolerance, increase use of healthy coping skills, and prevent decompensation.
--- NOTE | 2024-04-02 09:05 | BH.SGPN.GN ---
Behaviors/Verbalizations/Mental Status: [] Pt alert and oriented, neatly dressed and groomed. Eye contact good. Motor activity appropriate. Speech within normal limits. Affect congruent, mood anxious. Thoughts linear, logical, no signs of hallucinations or delusions. Reviewed pt?s symptom tracker, no risk for suicidal ideation, plan, or intent 04/02/24. Client Response/Progress/Benefit: []Pt was an active participant in group discussions. Attentive. Able to identify mental health wins including being more proactive with appointments and communicating much more effectively than I ever have. Pt reflected that this is allowing him to feel less stressed throughout the day. Pt's stressor today is he has to meet with his humane officer today and pt shared they have a history of conflict. Pt reported he is worried that although he is doing well, this PO will arrest me for no reason. Pt stated pt is feeling nervous this morning. Pt receptive to feedback from peers which pt reported was helpful. Progress noted. Benefited from group support, encouragement, and feedback. Will continue in IOP tx to promote mood stability, increase distress tolerance, and increase use of mindfulness skills. Narrative Note: []
--- NOTE | 2024-04-02 10:15 | BH.SGPN.GN ---
Behaviors/Verbalizations/Mental Status: [] Eye contact is fair. Motor activity is appropriate. Appearance is casual. Speech is Appropriate. Mood is anxious. Affect is congruent. Thoughts are linear and logical. No evidence of psychosis. Client Response/Progress/Benefit: [] Pt engaged participant AEB listening to others, engaging in activity, and providing feedback at times. Attentive during psychoeducation and provided insight into obstacles that impede mental wellness. Pt chose to not share with group current mental health reality and desired mental health reality. Did appear attentive to others that shared. Identified barriers to desired reality include: depressed mood, negative outside influences, procrastination, and avoidance. Benefited from taking look at current mental health state and obstacles for progress. Pt to continue IOP tx to improve emotion regulation, challenge distortions, and prevent decompensation.
--- NOTE | 2024-04-02 11:10 | BH.SGPN.GN ---
Behaviors/Verbalizations/Mental Status: [] Eye contact is good. Motor activity is appropriate. Appearance is casual. Speech is Appropriate. Mood is anxious/irritable. Affect is congruent. Thoughts are linear and logical. No evidence of psychosis. Client Response/Progress/Benefit: [] Pt was engaged in group discussions and activity. Worked with peers to identify strategies to help overcome barriers and obstacles to desired reality. Group worked together to develop strategies for the common barriers. Identified personal barriers to desired reality and choose one obstacle to work. Pt stated pt wants to work on barrier of procrastination and identified strategies of identify pros/cons of not following through with responsibility. Pt seemed to benefit from increased knowledge of practical strategies to overcome common barriers to moving forward. Will continue in IOP to prevent decompensation, improve functioning, and increase healthy coping skills.
--- NOTE | 2024-04-03 10:10 | BH.SGPN.GN ---
Behaviors/Verbalizations/Mental Status: [] Eye contact is fair to good, at times looking at phone. Motor activity is appropriate. Appearance is casual. Speech within normal limits. Mood is dysthymic. Affect is congruent. Thoughts are linear and logical. No evidence of psychosis. ? ? Client Response/Progress/Benefit: [] Client was an active participant in group discussion and experiential activity. Attentive during psychoeducation on resilience and provided input throughout. Participated in interactive discussion with peers on the definition of resilience and where it comes from. Group identified that resiliency can be impacted by; past experiences, upbringing, and current mental health state. Group also worked together to identify the benefits of being resilient and how it is related to mental health. Reflected on own use of resilience and skills used to continue to improve personal resilience. Able to relate experiential activity of group juggle to topics of resilience. Worked with peers in small group in which they identified factors that contribute to resilience. Benefited from increased awareness of resilience and the factors that contribute to building resilience. Will continue in IOP tx today to increase healthy thought patterns and further promote mood stability. Narrative Note: []
--- NOTE | 2024-04-03 11:15 | BH.SGPN.GN ---
Behaviors/Verbalizations/Mental Status: []Pt alert and oriented, casually dressed and groomed. Eye contact good. Motor activity appropriate. Speech within normal limits. Affect congruent, mood euthymic. Thoughts linear, logical, no signs of hallucinations or delusions. Client Response/Progress/Benefit: [] Pt responded well to session AEB completing the resilience worksheet provided. Pt actively participated in the discussion and worked cooperatively with group to identify strategies to enhance each of the components discussed. Pt reports belief they already use resilience trait of ?self-awareness of the people I?m around and the places I go.? Pt discussed that they could work on keeping things in perspective by ?telling myself things aren?t as bad as they seem.? Pt seemed to benefit from discussing strategies for improving personal resilience and identifying resilience traits Pt already possesses. Will continue IOP tx to increase distress tolerance skills, improve daily functioning, and maintain sobriety. Narrative Note: []
--- NOTE | 2024-04-03 13:57 | BH.MDN_ITS ---
Multi-Disciplinary Note Note 45-min Individual: Time Started:: 08:45 Date: 04/03/24 Purpose of session/treatment goals addressed:: To work on goal #2 of pt's tx plan by learning distress tolerance skills. Eye Contact:: Good Motor Activity:: Appropriate Appearance:: Casual Speech:: Rambling and Rapid Mood:: Anxious and Irritable Affect:: Congruent Thoughts:: Racing, Circular and No evidence of hallucinations/delusions noted Staff Interventions:: thought challenging, motivational interviewing, CBT techniques, mindfulness skills, strengths perspective and other (distress tolerance skills) Client Response:: Pt responded well to session, open to meeting with therapist. Pt shared he is feeling agitated and frustrated because my PO treats me like shit. Pt has been on probation for many years of his life and he has worked with one of his current POs in the past. Pt stated I haven't done well in the past, but this time I'm actually doing what I'm supposed to and I get treated like shit. Pt stated this triggers an urge to self-sabotage and give him a reason to get locked up. Pt has now been sober for over 6 months which is the longest pt has been sober while on probation. Therapist attempted to help pt gain perspective on why his PO may have difficultly trusting pt. Pt was resistant the this at first, sharing he should just trust me because I'm a good person. However, after more challenging, pt able to see that he has to earn trust multiple times which is difficult to accept. Discussed ways pt can gain his POs trust and how pt can accept if his PO does not change his response to pt. Pt responded well to the use of a chain analysis to see how pt's response to stressors can help pt prevent more stress or cause more stress. Pt stated before he goes to see his PO he is already on edge and then it takes something small to make me blow. Pt admits that he struggles to use calming skills, so pt was open to writing out a plan to practice when he goes in to talk to his PO. Pt also walked through what would happen if he did not manage his emotions, which pt shared I'd go to long-term. Pt able to see that although it is hard to accept, pt will have to manage his emotions even if his PO responds in a way that upsets pt. Pt appeared to benefit from challenging his perspective and reviewing calming skills. Risks/Concerns:: Pt denies any suicidal ideations, plan, or intent. Pt de nies any thoughts of . Progress Toward Goals/Plan:: Pt is making progress towards his tx goals as pt continues to report being sober and feeling more stable. Pt has ongoing stressors with court, legal issues, and family stress. Pt's biggest stressor currently is dealing with my PO as pt and this PO have worked together in the past and pt feels he is being treated unfairly. Pt is still learning how to regulate his emotions as a sober person which includes learning distress tolerance skills. Pt will continue IOP tx to promote mood stability, increase distress tolerance, and improve daily functioning. Time Stopped:: 09:30
--- NOTE | 2024-04-06 06:04 | PCM.BH.PN_ITS ---
Progress Note Progress Note: Progress Note History of Present Illness/Interim History:Haja Sorto is a 44 year old male who presents for follow up as part of his IOP follow up. Currently in his 4th week of IOP programming. Currently taking buspirone 10 mg TID and patient was recently titrated to 10 mg of Zyprexa at night several weeks ago. States that he has noticed no significant difference in mood symptoms. Still having some fairly significant depression and anxiety. Feels like symptom might be slightly better but not dramatically. Previously admits to taking a PRN in the alf that seemed to work for anxiety. Previously had been on quetiapine and felt that it made him a zombie. Sleep has been ok. Has been sober from methamphetamine for over 6 months and 8 years from alcohol. Previously would use methamphetamine to help treat mood. Had taken meds since about 10-12 years old. Appetite has been fair. Denies any energy drinks or caffeine. Current Psychiatric Medications: Buspirone 10 mg 3 times a day, olanzapine 10 mg nightly Mental Status Examination: Appearance casually dressed, well-groomed Attitude cooperative Activity/Motor Behavior MSE activity/motor behavior finding no adventitious movements Speech regular rate, regular volume and regular prosody Mood depressed and anxious Affect Largely congruent Thought Process linear, logical and coherent Thought Content no delusions and no hallucinations Suicidal Ideation none Homicidal Ideation none Attention intact Concentration intact Sensorium/Orientation awake, alert and oriented x3 Memory/Cognition other (appropriate for stated age) Insight Good Judgement good Diagnoses: [] 1. Major depressive disorder, recurrent, severe without psychotic features 2. Methamphetamine use disorder, moderate, in early remission 3. Panic disorder 4. PTSD 5. ADHD 6. Alcohol use disorder in full remission Plan: [] The patient will continue the IOP in behavioral health as the structure, support, education and group therapy will hopefully prevent worsening of the patient's symptoms. He felt safe during the interview and if it anytime she does not feel safe she agrees to let us know or go to the emergency room. The risk, options, possible complications and side effects of the medications were again discussed with the patient and she understands and accepts these. Patient will start Wellbutrin 150 mg every day for depression/anxiety as well as potentially to help with long-term sobriety from methamphetamine use disorder. Patient was informed of the risks, benefits and likely side effects of Wellbutrin. These side effects include but are not limited to appetite suppression, headache, diaphoresis, tachycardia, nausea, and insomnia. Wellb utrin can lower the seizure threshold, if you have a history of seizure disorder or have a seizure while taking the medication, please discontinue the medication and inform office immediately.
--- NOTE | 2024-04-06 09:00 | BH.SGPN.GN ---
Behaviors/Verbalizations/Mental Status: [] Eye contact is good. Motor activity is appropriate. Appearance is casual. Speech is Appropriate. Mood is anxious/irritable. Affect is congruent. Thoughts are linear and logical. No evidence of psychosis. Reviewed daily check in sheet and no reports of suicidal ideations or intent. Client Response/Progress/Benefit: [] Pt participated at times during the group discussion. Attentive. ? It was really good over the weekend?. Several psychosocial stressors which had increased his frustration and anxiety. Insight that urges to self-medicate or self-sabotage will increase. Group reframed the frustrations as opportunities to practice skills and prove to others that you can maintain sobriety. Benefited from group support, encouragement, and feedback. Will continue in IOP to prevent decompensation, stabilize mood, and improve functioning. Narrative Note: []
--- NOTE | 2024-04-06 10:10 | BH.SGPN.GN ---
Behaviors/Verbalizations/Mental Status: []Client alert and oriented, casually dressed and groomed. Eye contact good. Motor activity appropriate. Speech within normal limits. Affect congruent, mood irritable. Thoughts linear, logical, no signs of hallucinations or delusions. Client Response/Progress/Benefit: []Pt responded well to session AEB actively participating throughout group. Pt was attentive throughout group activity discussing famous individuals and how they overcame failure to be successful. Pt helped group identify how fear of failure can impact mental health and relationships. Pt personally identified fear of failure has led to pt not setting any goals in life. Participated in experiential activity, working with group members to problem solve. Appeared to benefit from increased knowledge of what causes fear of failure and how it impacts people. Will continue IOP tx to promote mood stability, reduce negative thinking patterns, and improve daily functioning. Narrative Note: []
--- NOTE | 2024-04-06 11:10 | BH.SGPN.GN ---
Behaviors/Verbalizations/Mental Status: []Pt alert and oriented, casually dressed and groomed. Eye contact fair. Motor activity appropriate. Speech within normal limits. Affect congruent, mood euthymic. Thoughts linear, logical, no signs of hallucinations or delusions. Client Response/Progress/Benefit: [] Pt responded well to session, engaged in the experiential activity and attentive throughout group processing. Pt reported fear of failure has kept Pt from reaching his goals. Pt completed fear of failure worksheet and was able to identify thoughts and behaviors that reinforce personal fear of failure. Pt participated in small group discussion regarding strategies to overcome fear of failure. Identified wanting to work on challenging negative thoughts and calling support people.?Appeared to benefit from increased knowledge of strategies to combat fear of failure and gaining self-awareness. Pt will continue IOP tx to increase consistent use of healthy coping skills, challenge distorted thoughts, and prevent decompensation.
--- NOTE | 2024-04-10 10:10 | BH.SGPN.GN ---
Behaviors/Verbalizations/Mental Status: [] Pt alert and oriented, casually dressed and groomed. Eye contact good. Motor activity appropriate. Speech within normal limits. Affect congruent, mood euthymic,,Thoughts linear, logical, no signs of hallucinations or delusions. Client Response/Progress/Benefit: [] Pt receptive to session AEB contributing to group discussion, as well as listening attentively to others, and taking notes. Worked with group to brainstorm the positive and negative aspects of stress on physical and mental health as well as the impact of distress on performance, relationships, and mental health. Pt shared their top stressors to be: staying sober, people, and court issues. Shared when feeling overwhelmed with stress has abused drugs and increased irritability. Benefited from increased awareness of positive and negative stress as well as how stress impact individuals. Will continue in IOP to increase consistent use of healthy coping skills and prevent decompensation. Narrative Note: []
--- NOTE | 2024-04-10 10:34 | BH.MDN_ITS ---
Multi-Disciplinary Note Note 30-min Individual: Time Started:: 09:30 Date: 04/10/24 Purpose of session/treatment goals addressed:: To work on pt's distress tolerance skills to improve anxiety management. Eye Contact:: Good Motor Activity:: Restless Appearance:: Casual Speech:: Rapid Mood:: Anxious Affect:: Congruent Thoughts:: Racing and No evidence of hallucinations/delusions noted Staff Interventions:: thought challenging, motivational interviewing, CBT techniques, mindfulness skills, discharge planning, strengths perspective and taught coping skills Client Response:: Pt responded well to session, open to meeting with therapist. Pt shared he had to turn himself in and the group home accepted him, even though they previously told pt he would not have to stay. Pt expressed frustration with his probation, legal charges, and how he is being treated by the courts. Pt reminded that he can only focus on ways he can continue to help himself in his current situation. Pt admits that he is coping better, but he still struggles with regulating his anxiety and irritability. Pt is no longer breaking things or verbally attacking people, but pt reports he is short and snappy with anyone who is around pt when he feels overwhelmed. Pt has used substances to cope with his emotions and trauma for years, so when he has anxiety or stress, pt has urges to numb. Pt is now sober, but since he does not have drugs or alcohol to cope, pt uses cigarettes. Pt stated he smoked about 20 cigarettes yesterday in the span of two hours because I was so anxious. Pt has awareness that cigarettes create temporary relief, but they are a stimulant which increases heart rate and therefore exacerbate anxiety. Pt encouraged to practice calming skills before he smokes or in between cigarettes. Pt shared he also forgets things when he is anxious, so together we made a list of tasks that pt needs to accomplish today. Also identified what else pt could do to help with his memory including asking for copies of things or asking for follow up emails. Risks/Concerns:: Pt denies any substance use. Pt denies any SI or thoughts of . Progress Toward Goals/Plan:: Pt continues to make progress towards his tx goals AEB pt's reduction in symptoms at review and his report of maintaining sobriety. Pt has ongoing stressors with his legal issues, probation requirements, and past legal charges. Pt admits that he is still not consistent with applying calming skills as pt automatically reverts to smoking cigarettes when he is anxious. Discussed the benefits of trying a coping skill in between smoking or setting a timer to help pt remember. Pt and therapist set pt up with outpatient psychiatry and therapy today through [facility]. Pt will continue IOP tx to prevent decompensation, improve daily functioning, and increase distress tolerance. Time Stopped:: 10:00
--- NOTE | 2024-04-10 11:10 | BH.SGPN.GN ---
Behaviors/Verbalizations/Mental Status: [] Pt alert and oriented, casually dressed and groomed. Eye contact good. Motor activity appropriate. Speech within normal limits. Affect congruent, mood euthymic, Thoughts linear, logical, no signs of hallucinations or delusions. Client Response/Progress/Benefit: [] Pt was an attentive participant in group discussions and actively engaged during experiential activity, doing well to regulate their emotions throughout the activity and work with peers. Attentive during psychoeducation on the 4 A's (Avoid, adapt, alter, accept) of coping with stress. Shared that they would benefit from altering approach to change thought patterns. Was able to identify the connection between the experiential activity and utilization of stress management skills. Benefited from increased awareness of stress management strategies. Pt will continue IOP to increase consistent use of healthy coping skills and prevent decompensation. Narrative Note: []
--- NOTE | 2024-04-13 09:05 | BH.SGPN.GN ---
Behaviors/Verbalizations/Mental Status: [] Eye contact is good. Motor activity is appropriate. Appearance is casual. Speech is Appropriate. Mood is anxious/irritable. Affect is congruent. Thoughts are linear and logical. No evidence of psychosis. Reviewed daily check in sheet and no reports of suicidal ideations or intent. Client Response/Progress/Benefit: [] Pt was an active participant in group discussion. Attentive. Daily symptom tracker notes 3/5 for anxiety and 2/5 for depression/irritability. States his weekend? went well? with limited mental health distress. Shared moments of frustration, high anxiety, and stress related to stressors however was able to reframe, distract, and change perspectives. Increased anger management and coping skills had prevented him from decompensation and self-medication. Has been sober for 7 months. Progress noted. Benefited from group support, encouragement, and feedback. Will continue in IOP to prevent decompensation, stabilize anxiety, and increase healthy coping skills. Narrative Note: []
--- NOTE | 2024-04-13 10:15 | BH.SGPN.GN ---
Behaviors/Verbalizations/Mental Status: []Client alert and oriented, casually dressed and groomed. Eye contact good. Motor activity appropriate. Speech within normal limits. Affect congruent, mood engaged and anxious. Thoughts linear, logical, no signs of hallucinations or delusions. Client Response/Progress/Benefit: [] Pt was an active participant AEB taking notes and engaging in group activity. Connected with the topic of pitfalls and listened to group discussion on barriers that prevent from choosing a healthier path to mental wellness. Group worked together to identify examples of personal pitfalls. These examples included; shutting down, not asking for help, negative thinking patterns, and using substances. Pt benefited from group as Pt learned to better identify potential barriers to improving mental health symptoms. Pt will continue IOP tx to promote use of healthy coping skills, maintain sobriety, and reduce isolation. Narrative Note: []
--- NOTE | 2024-04-13 11:15 | BH.SGPN.GN ---
Behaviors/Verbalizations/Mental Status: []Client alert and oriented, casually dressed and groomed. Eye contact good. Motor activity appropriate. Speech within normal limits. Affect congruent, mood content. Thoughts linear, logical, no signs of hallucinations or delusions. Client Response/Progress/Benefit: [] Pt receptive of session, engaged throughout AEB Pt actively listening and contributing to discussion as well as taking notes.? Pt participated in the experiential activity and did well to communicate ideas with peers and manage emotions. Pt attentive as group processed how the emotions and perspective of the group impacted the activity. Group worked together to identify different coping skills to help manage pitfalls. Pt identified a pitfall they struggle with as ?telling myself I'm going to fail. Pt plans to work on their pitfall by trying to use positive affirmations and challenge negative self-talk. Benefited from identifying personal pitfalls and strategies to overcome these pitfalls. Pt will continue IOP tx to prevent decompensation, improve daily functioning, and gain skills to maintain sobriety. Narrative Note: []
--- NOTE | 2024-04-15 09:00 | BH.SGPN.GN ---
Behaviors/Verbalizations/Mental Status: [] Eye contact is good. Motor activity is appropriate. Appearance is casual. Speech is Appropriate. Mood is euthymic. Affect is full. Thoughts are linear and logical. No evidence of psychosis. Reviewed daily check in sheet and no reports of suicidal ideations or intent. Client Response/Progress/Benefit: [] Pt was an active participant in group discussion. Attentive. Daily symptom tracker notes 2/5 for irritability and 3/5 for anxiety. Shared several stressors related to home life. Elaborated on these stressors and how this has led to increase irritability and frustration. Struggling with effective coping relying heavily on smoking cigarettes because her can go outside and get away. Feeling alright today. Engaged with providing feedback to peers throughout the session. Benefited from group support, encouragement, and feedback. Will continue in IOP to prevent decompensation, increase healthy coping, and improve functioning. Narrative Note: []
--- NOTE | 2024-04-15 11:15 | BH.SGPN.GN ---
Behaviors/Verbalizations/Mental Status: []Client alert and oriented, casually dressed and groomed. Eye contact fair. Motor activity appropriate. Speech within normal limits. Affect congruent, mood anxious. Thoughts linear, logical, no signs of hallucinations or delusions. Client Response/Progress/Benefit: []Pt was engaged throughout AEB contributing to group discussion and activity. Group processed how they each responded to the intentionally difficult task they were asked to completed and described the physical and emotional anger cues experienced throughout, as well as strategies used for managing these frustrations. Pt contributed as group brainstormed healthy coping skills for better managing anger which included: music, walking/exercise, taking a break, healthy venting, avoiding unnecessary stressors, reflection, and journaling. Pt cooperative with working in small groups to identify what strategy wants to work on to help interrupt personal anger cycle. Pt to continue IOP to improve emotion regulation, challenge negative thoughts, and prevent decompensation.
--- NOTE | 2024-04-15 15:00 | BH.SGPN.GN ---
Behaviors/Verbalizations/Mental Status: [] Eye contact is good. Motor activity is appropriate. Appearance is casual. Speech is Appropriate. Mood is anxious and euthymic. Affect is congruent. Thoughts are linear and logical. No evidence of psychosis Client Response/Progress/Benefit: [] Pt responded well to session AEB contributing to small group discussion, taking notes, and listening attentively to others. Group defined anger and discussed the benefits of managed anger and anger as a secondary emotion. Group shared perspective on benefits of anger as advocating for self and getting needs met, as well as a catalyst for change. Pt engaged in group discussion on common underlying emotions that mask as anger. Identified feeling disrespected as a common secondary emotion to anger. Appeared to benefit from increased knowledge of the anger cycle as well as personal triggers. Will continue IOP to increase healthy coping, prevent decompensation, and improve functioning. Narrative Note: []
--- NOTE | 2024-04-16 09:02 | BH.SGPN.GN ---
Behaviors/Verbalizations/Mental Status: []Pt alert and oriented, casually dressed and groomed. Eye contact good. Motor activity appropriate. Speech within normal limits. Affect congruent, mood stressed, depressed. Thoughts linear, logical, no signs of hallucinations or delusions. Reviewed pt?s symptom tracker, no risk for suicidal ideation, plan, or intent 04/16/24 Client Response/Progress/Benefit: []Pt was an active participant in group discussions. Attentive. Able to identify mental health wins including being able to rescue a stray cat with his children. Reports this was encouraging and a bonding experience with his kids. Additional win noted as being in an overall good mood until getting here when he received some disappointing news about his knee. Shared that the surgeon contacted pt when he got here and informed him that his knee is worse than originally expected. Pt reports this is frustrating as he does not want to have surgery. Benefited from group support, encouragement, and feedback. Will continue in IOP to prevent decompensation, continue to gain healthy coping skills, and reduce negative thinking patterns. Narrative Note: []
--- NOTE | 2024-04-16 10:15 | BH.SGPN.GN ---
Behaviors/Verbalizations/Mental Status: []Eye contact is fair. Motor activity is appropriate. Appearance is casual. Speech is Appropriate. Mood is anxious. Affect is constricted. Thoughts are linear and logical. No evidence of psychosis Client Response/Progress/Benefit: [] Pt engaged in session, but more quiet than usual. Pt engaged in activity, able to connect how it can be uncomfortable and difficult to accept when things are out of one?s own control. Worked with peer group to identify things in life which are hard to accept and identified personal things that are hard to accept including ?court and anxiety.? Seemed to benefit from increased awareness of the meaning as well as the importance of acceptance. Pt also worked on what acceptance is vs is not for own personal example. Will continue in IOP to promote use of healthy coping skills, improve daily functioning, and increase distress tolerance skills. Narrative Note: []
--- NOTE | 2024-04-16 11:10 | BH.SGPN.GN ---
Behaviors/Verbalizations/Mental Status: [] Pt alert and oriented, casually dressed and groomed. Eye contact fair. Motor activity is restless. Speech within normal limits. Affect congruent, mood anxious. Thoughts linear, logical, no signs of hallucinations or delusions. Client Response/Progress/Benefit: [] Pt was attentive and engaged at times. Limited participation in discussion on acceptance and the mental health benefits of practicing acceptance. Distractred and anxious leaving group often. Pt and peers identified what makes acceptance challenging and pt completed a self-reflection exercise on what is hard to accept in pt's life. Pt appeared to benefit from gaining insight and learning strategies to increase acceptance. Will continue in IOP to prevent decompensation, increase healthy coping and improve functioning. Narrative Note: []
--- NOTE | 2024-04-16 13:45 | BH.MDN ---
Multi-Disciplinary Note Note 30-min Individual: Time Started:: 12:05 Date: 04/16/24 Purpose of session/treatment goals addressed:: To work on anxiety management skills. Eye Contact:: Good Motor Activity:: Appropriate Appearance:: Disheveled Speech:: Tangential Mood:: Anxious Affect:: Constricted Thoughts:: Racing and Circular Staff Interventions:: thought challenging, motivational interviewing, CBT techniques, mindfulness skills, discharge planning, strengths perspective and goal setting Client Response:: Pt responded well to session, open to meeting with therapist. Therapist asked pt if he was doing okay as pt was not acting like his usual self in group today. Pt shared he is so anxious it's making me sick to my stomach. Pt has court on Saturday which pt is worried about and pt is unable to stop ruminating. Pt shut down during group session and was up and down from his seat because he could not sit still. Pt receptive to calming skills from therapist which helped pt focus in session. Pt and therapist discussed what is in pt's control today, which pt identified two things he can do to help get prepared for Saturday. Pt also noted that when he is anxious he gets irritable which leads to isolation as pt fears he will lash out on his kids. Discussed how it may help pt avoid lashing out, but isolating only increases pt's rumination and anxiety which then leads to more irritability. Reviewed warning signs and triggers that would help pt recognize an increase of irritability. Pt noted that he is most anxious and irritable around transition time (bed time and getting ready for school) so it might be better for pt to avoid those moments, but then make sure he spends time with them in other ways. Pt also receptive to practicing voicing his need for a break with his children. Pt noted that when he has no plans/structure he ruminates and dwells, so pt was receptive to planning things to do this weekend that would give pt something to look forward to and to give pt structure. Pt shared he will cook tomorrow and play at least one board game with his kids. Risks/Concerns:: Pt denies any suicidal ideations, plan, or intent. Pt denies any thoughts of . Progress Toward Goals/Plan:: Pt continues to make progress towards his tx goals AEB pt's consistency and engagement in group. Today pt was less engaged which pt reported in session was due to his high anxiety about an upcoming court hearing on Saturday. Pt struggles with regulating his anxiety, so it manifests in irritability and shutting down. Pt receptive to goals discussed today in session. Pt will continue IOP tx to promote use of healthy coping skills and to improve daily functioning. Time Stopped:: 12:25
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
--- NOTE | 2024-04-21 09:05 | BH.SGPN.GN ---
Behaviors/Verbalizations/Mental Status: []Pt alert and oriented, neatly dressed and groomed. Eye contact good. Motor activity appropriate. Speech within normal limits. Affect congruent, mood anxious. Thoughts linear, logical, no signs of hallucinations or delusions. Reviewed pt?s symptom tracker, no risk for suicidal ideation, plan, or intent 04/21/24. Client Response/Progress/Benefit: []Pt was an active participant in group discussions. Attentive. Able to identify mental health wins including not turning to substances when he was very anxious yesterday and getting help instead of isolating. Pt's stressor today is the current situation with his kids which pt discussed with his individual therapist. Pt stated pt is feeling stressed this morning. Pt receptive to feedback from peers which pt reported was helpful. Progress noted, but pt's stress continues to be an issue. Benefited from group support, encouragement, and feedback. Will continue in IOP to promote mood stability and reinforce healthy coping skills. Narrative Note: []
--- NOTE | 2024-04-21 10:10 | BH.SGPN.GN ---
Behaviors/Verbalizations/Mental Status: []Patient was alert and oriented, casually dressed and groomed. Eye contact good. motor activity appropriate. speech within normal limits. Affect congruent, mood anxious. Thoughts linear, logical, no signs of hallucinations or delusion. Client Response/Progress/Benefit: []Pt participated in the group discussions AEB providing input, nodding and taking notes. Attentive during psychoeducation Goal Setting. Participated during the discussion on common barriers. Pt stated a personal barrier to accomplishing goals is lack of focus and follow-through. Group also identified benefits of goals as sense of purpose, improved self-confidence, more motivation for other goals, sense of accomplishment, and improved mental health. Pt identified personal benefits to goal setting. Benefited from increased awareness of mental health benefits of goals as well as psychoeducation on SMART goal criteria. Will continue in IOP to promote mood stability, challenge distorted thoughts, and prevent decompensation. Narrative Note: []
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
--- NOTE | 2024-04-21 15:34 | BH.IGGP_ITS ---
Aftercare Plan Demographics Treatment End Date:: 04/22/24 Psychiatrist:: Charo Lucero Psychiatrist Office #:: [phone] [facility]/IOP Therapist:: Marycarmen Duenas Therapist Phone #:: [phone] Medications Home Medications buspirone 10 mg tablet 10 mg PO TID 30 days #90 tabs 02/26/24 olanzapine 10 mg tablet (Zyprexa) 10 mg PO QHS 30 days #30 tabs 03/12/24 bupropion HCl 150 mg 24 hr tablet, extended release (Wellbutrin XL) 150 mg PO QAM #30 tabs 04/03/24 Plan Details Progress/Aftercare Plan Details:: Pt has responded well to treatment as evidenced by Pt consistently attending IOP sessions and his reduction of DSM-5 scores since admission. Pt struggled at the beginning of treatment with being engaged and attendance, but he made a dramatic switch and has been highly engaged since. Pt applied coping skills outside of IOP and reports overall his mood is improved and he is functioning better than he was several months ago. Pt?s overall symptom reduction is 32% since admission with anger decreasing by 50%, depression decreasing by 63%, and anxiety decreasing by 11%. Pt has increased his ability to manage anger and stress without using substances. Pt will follow up with [facility] for medication management with Dr. Rios and individual therapy with Huong Graves. Strategies for Success:: 1. Opposite action! Continue to break that cycle of anxiety, guilt, and depression by not letting emotions be the only drivers of your bus. 2. Remember that thoughts are thoughts NOT facts! You have power in if you give thoughts the time of day or not. 3. self-care! You deserve to take time for you and you also deserve to face the not so fun self-care like delegating tasks and advocating for yourself 4. Self-compassion! You are human and you will make a mistake?BUT that doesn?t mean you are a failure or not good enough. Remember there are no bad parts! 5. Continue to practice acceptance and stay sober! 6. Practice positive self-talk and keep track of your wins. 7. Remember progress isn?t linear! You may have a setback or bump in the road, but that doesn?t mean you?ve lost all progress. 8. self-reflection and self- awareness. 9. Be understanding with yourself and try to see the whole picture, not just the snapshot. 10. Live in the briceño!! Appointments Appointments/Referrals to Other Services:: 1. Dr. Rios 05/05/24 2. Huong Graves 05/01/24 3. IOP aftercare group starting 04/30/24 2:00-3:30pm for 8 weeks.
--- NOTE | 2024-04-22 09:00 | BH.SGPN.GN ---
Behaviors/Verbalizations/Mental Status: [] Client alert and oriented, neat in appearance. Eye contact good. Motor activity appropriate. Speech within normal limits. Affect congruent, mood euthymic and anxious. Thoughts linear, logical, no signs of hallucinations or delusions. Reviewed client's symptom tracker, no risk for suicidal ideation, plan, or intent. Client Response/Progress/Benefit: []Client responded well to session AEB listening to others and sharing thoughts/feelings. Client reported mental health positive as planning to go to court today to file for custody for his kids. Client stated feeling anxious the court won't give him a chance because of his past legal charges. Client reported although he is worried about being turned down he knows it's important to at least try. Client noted feeling bittersweet about discharging from IOP today. Client stated he has noticed progress with decreased anxiety, increased feeling of being calm, and better decision making. Appeared to benefit from support from peers. Will discharge from IOP today.
--- NOTE | 2024-04-22 09:47 | BH.DS_ITS ---
Discharge Summary Demographics Date of Admission:: 02/26/24 Discharge Date: 04/22/24 Presenting Problems at Admission:: Pt is a 43-year-old male with a history of MDD, REBECCA, PTSD, ADHD, and substance abuse. Pt was referred to [facility] after completing two rehabilitation programs and he is now 5 months sober from meth. Pt reports his mental health is what led to his chronic substance use and he wants to get help. At admission, pt endorses a depressed mood with passive SI, poor sleep, lack of motivation, lack of energy, hopelessness, worthlessness, and isolation. Pt also endorses daily panic attacks, inability to sit still and concentrate, and racing thoughts. Pt's symptoms are impacting his ability to function and manage life stressors. Discharge Diagnoses:: Major depressive disorder, recurrent, severe without psychosis; Panic disorder; PTSD; ADHD; Methamphetamine use disorder (sober x 7 months); Alcohol use disorder in full remission for 8 years Reason for Discharge:: Pt has accomplished his tx goals AEB his reduction of DMS-5 symptoms, self-report of improved functioning and mood, and maintained sobriety. Pt no longer meets criteria for [facility] level of care and will discharge to outpatient counseling. Treatment Progress During Treatment & Response: Pt has responded well to treatment as evidenced by Pt consistently attending IOP sessions and his reduction of DSM-5 scores since admission. Pt struggled at the beginning of treatment with being engaged and attendance, but he made a dramatic switch and has been highly engaged since. Pt applied coping skills outside of [facility] and reports overall his mood is improved and he is functioning better than he was several months ago. Pt?s overall symptom reduction is 32% since admission with anger decreasing by 50%, depression decreasing by 63%, and anxiety decreasing by 11%. Pt has increased his ability to manage anger and stress without using substances. Pt will follow up with [facility] for medication management with Dr. Rios and individual therapy with Huong Graves. Issues Still to be Addressed:: Pt can benefit from continuing to work on sobriety and following through with his probation requirements. Pt is still learning how to navigate life sober, so he will need to continue working on distress tolerance and emotional regulation skills. Discharge Recommendations/Instructions:: Pt will follow up with Dr. Rios for medication management through [facility] and uHong Graves for therapy. Pt will see Dr. Rios on 05/05/24 and Huong on 05/01/24. Discharge Handout
--- NOTE | 2024-04-22 10:15 | BH.SGPN.GN ---
Behaviors/Verbalizations/Mental Status: []Pt alert and oriented, neatly dressed and groomed. Eye contact good. Motor activity appropriate. Speech within normal limits. Affect congruent, mood euthymic and anxious. Thoughts linear, logical, no signs of hallucinations or delusions. Client Response/Progress/Benefit: [] Pt was attentive during psychoeducation and participated in group activity. Group discussed what contributes to a person?s perspective and how perspective can positively or negatively impact mental health treatment. Pt reflected on their perspective today and how it is impacting them. Pt shared their perspective is positive some days, but he struggles with staying positive and realistic when external stressors happen. Pt appeared to benefit from increasing awareness of different perspectives and how they can affect mental health. Pt will discharge from IOP tx today as pt has accomplished his tx goals and no longer meets criteria for IOP level of care. Narrative Note: []
== END 2024-04-22 12:31 | disposition home or self-care (01) ==
LOC: BHIOP 07:07
PROVIDERS: Referring Provider Psychiatry & Neurology Psychiatry; Visit Provider Psychiatry & Neurology Psychiatry
DX: F33.2 Major depressive disorder, recurrent severe without psychotic features (principal); F41.0 Panic disorder [episodic paroxysmal anxiety]; F43.10 Post-traumatic stress disorder, unspecified; F90.9 Attention-deficit hyperactivity disorder, unspecified type; F15.11 Other stimulant abuse, in remission; F10.91 Alcohol use, unspecified, in remission
CPT/HCPCS: H2012; H2020; S9480; 90832; 90834

== ENCOUNTER 2024-04-30 09:44 | Outpatient (RCR) | payer MEDICAID, SELFPAY ==
--- NOTE | 2024-04-30 14:00 | BH.COMM ---
Communication Note Communication with Client Communication Note: Patient completed IOP and presents today to start relapse prevention group which meets once weekly (1.5 hours) for 8 weeks. Case discussed with Dr. Mulligan with plan to admit with dx of F33.2
--- NOTE | 2024-04-30 15:47 | BH.MTP ---
Master Treatment Plan Patient Information Program Physician:: Dr. 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 Objectives Objective #1: Stated Objective: Client will continue to consistently apply healthy coping skills to maintain progress made in IOP tx. Interventions: Through group therapy, client will review warning signs and triggers as well as healthy coping skills learned in IOP tx to successfully maintain gains while transitioning into outpatient therapy. Discharge Criteria: Client will have accomplished this goal when client's score on the DSM-5 cross-cutting measure has maintained or reduced over a 8 week period. Target Date: 06/25/24 Review Date: 05/28/24 Status: open Objective #2: Stated Objective: Client will learn and utilize 2-3 maintenance strategies to prevent decompensation from original IOP DSM-5 scores. Interventions: Through group therapy, client will be provided with education on healthy maintenance behaviors, relapse prevention techniques, and healthy coping strategies. Discharge Criteria: Client will have accomplished this goal when can report using at least 2 maintenance skills to prevent decompensation compared to original IOP DSM-5 scores Target Date: 06/25/24 Review Date: 05/28/24 Status: open
--- NOTE | 2024-05-07 14:00 | BH.SGPN.GN ---
Behaviors/Verbalizations/Mental Status: []Client alert and oriented, casually dressed and groomed. Eye contact good. Motor activity appropriate. Speech within normal limits. Affect congruent, mood dysthymic. Thoughts linear, logical, no signs of hallucinations or delusions. Client Response/Progress/Benefit: []Pt responded well to session AEB sharing and listening attentively to others. Pt has not followed up with all mental health appointments this week but did reschedule for next week and pt is taking medications regularly. Pt stated self-care, thought challenging, and emotion regulation skills as pt?s primary coping skills this week. Pt participated in group discussion defining vulnerability, how and why we avoid it, and the benefits. Pt was an active participant and provided personal examples of being vulnerable and the positive things that came with this. Pt stated that he would like to practice vulnerability this week by continuing to communicate with his lead security officer rather than shut down or avoid. Will continue aftercare treatment to reinforce healthy coping skills and promote gains. Narrative Note: []
--- NOTE | 2024-05-14 14:00 | BH.SGPN.GN ---
Behaviors/Verbalizations/Mental Status: []Pt alert and oriented, casually dressed and groomed. Eye contact good. Motor activity appropriate. Speech within normal limits. Affect congruent, mood agitated and stressed. Thoughts linear, logical, no signs of hallucinations or delusions. Client Response/Progress/Benefit: [] Pt receptive of session, engaged throughout. Pt has been reporting utilizing healthy coping skills outside of aftercare. Pt met with his psychiatrist this week. These skills included: deep breathing, exercise, and practicing gratitude. ?Receptive of discussion on distress tolerance and emotional urges. Pt contributed to the discussion of distress tolerance and how building distress tolerance can help improve mood stability and resilience. Pt wants to keep building distress tolerance by ?not lashing out at my PO.? Pt seemed to benefit from support from peers and increasing understanding of distress tolerance. Will continue IOP aftercare to promote mood stability and reinforce healthy coping skills. ? Narrative Note: []
--- NOTE | 2024-05-21 16:38 | BH.MTP_ITS ---
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 Pt's symptoms are still 48% lower than they were at IOP admission. Status of Current Problems and Symptoms: Pt's stressors that he had in IOP are ongoing, but pt reports he is managing them well. Pt continues to remain sober from drugs and alcohol. Pt is still experiencing anxiety with racing thoughts, agitation, and irritability. Pt's biggest stressors currently including finding work, his kids, and finding housing. Progress Problem #1: Problem Name:: Pt will maintain or see a reduction in sx Status of Goals:: Obj 1 - Complete with maintenance encouraged. Pt's depression decreased by 75% compared to IOP admission and anxiety has decreased by 42% compared to IOP admission. Obj 2 - complete with ongoing work encouraged. Pt had been reporting using opposite action, mindfulness, exercise, and self- care to manage symptoms. Pt also continues to be sober and use effective communication skills. Team Recommendations:: Recommended client continue IOP aftercare group in addition to attending regular outpatient counseling in order to maintain gains. Pt also recommended to continue working on obtaining housing, finding employment, and following through with his PO recommendations.
== END 2024-05-22 23:59 ==
LOC: BHOG 09:44
PROVIDERS: Referring Provider Psychiatry & Neurology Psychiatry; Visit Provider Psychiatry & Neurology Psychiatry
DX: F33.2 Major depressive disorder, recurrent severe without psychotic features (principal); F41.0 Panic disorder [episodic paroxysmal anxiety]; F43.10 Post-traumatic stress disorder, unspecified; F90.0 Attention-deficit hyperactivity disorder, predominantly inattentive type; F15.11 Other stimulant abuse, in remission; F10.91 Alcohol use, unspecified, in remission
CPT/HCPCS: 90853

== ENCOUNTER 2024-05-25 07:33 | Outpatient (RCR) | payer MEDICAID, SELFPAY ==
--- NOTE | 2024-06-11 15:46 | BH.COMM ---
Communication Note Communication with Client Communication Note: Met with treatment team to discuss client's current progress in aftercare program. Discussed case with Dr. Mulligan who agreed with current plan for client to continue aftercare program with diagnosis of F33.2. Plan will be for client to discharge in June.
--- NOTE | 2024-08-18 09:44 | BH.TPR ---
Treatment Plan Review Demographics Date of Treatment Plan Review:: 05/21/24
== END 2024-06-22 23:59 ==
LOC: BHOG 07:33
PROVIDERS: Referring Provider Psychiatry & Neurology Psychiatry; Visit Provider Psychiatry & Neurology Psychiatry
DX: Z00.00 Encounter for general adult medical examination without abnormal findings (principal)

== ENCOUNTER 2024-06-17 15:12 | Emergency (ER) | payer MEDICAID, SELFPAY ==
[2024-06-17] VITALS (7 sets, daily range): BP systolic 127–158; BP diastolic 78–88; PULSE 73–95; RESP 18–28; TEMP 36.1–36.6; O2SAT 95–99; BMI 32.1
--- NOTE | 2024-06-17 15:21 | EKG12_ITS ---
Test Reason : CP Blood Pressure : */* mmHG Vent. Rate : 85 BPM Atrial Rate : 85 BPM P-R Int : 158 ms QRS Dur : 102 ms QT Int : 366 ms P-R-T Axes : 49 1 51 degrees QTcB Int : 435 ms Normal sinus rhythm Normal ECG Confirmed by IRENE JIMENEZ, YASMANY ([id number]), editorial intern NATALIO YOON ([id number]) on 06/18/2024 8:04:53 AM Referred By: BRIDGER/YOLY Confirmed By: YASMANY BONILLA MD
--- NOTE | 2024-06-17 15:26 | EX.ED.DYSGE1 ---
HPI History of Present Illness Chief Complaint: Chest Pain Narrative Narrative: Patient is a 44-year-old male who presents to the [facility] behavioral health unit with a chief complaint of of chest pain and shortness of breath. Patient states that this morning when he woke up he noted that he had chest discomfort on the right side he states that he attempted to lie on several different positions in hopes that this would help his pain. He states that this is denying not taken thing for pain. Patient notes that he was fine for he went to bed and denies any recent sick contacts. Denies any recent travel history denies trauma. Patient states that he has not been drugs in approximately 10 months has been clean. Patient states that his pain has been constant all day therefore he came here for the valuation management [facility] Medical History Alcohol use disorder in remission Panic disorder Major depressive disorder, recurrent severe without psychotic features Methamphetamine use disorder, moderate, in early remission Attention deficit hyperactivity disorder PTSD (post-traumatic stress disorder) Generalized anxiety disorder Limb weakness Knee pain Chest pain Severe headache Shoulder pain SOB (shortness of breath) Home Medications ?Medication ?Instructions ?Recorded ?Last Taken ?Type bupropion HCl 150 mg tablet,12 hr 150 mg PO BID #60 ea 05/11/24 Unknown Rx sustained-release (Wellbutrin SR) buspirone 15 mg tablet 15 mg PO TID 30 days #90 tabs 05/11/24 Unknown Rx Allergy/AdvReac Type Severity Reaction Status Date / Time No Known Allergies Allergy Verified 06/17/24 15:14 Surgical History History of knee surgery Social History Smoking Status: Current every day smoker tobacco type: cigarettes alcohol intake: never ROS ROS ED ROS Narrative Constitutional: Denies fevers, chills, headaches, lightness, dizziness Eyes: Denies change in vision double vision blurry vision Cardiovascular: Complains of chest discomfort as noted above denies palpitations Respiratory: Complains of dry cough and shortness of breath Abdomen: Denies abdominal pain nausea vomit diarrhea Neurological: Denies numbness, weakness, tingling Musculoskeletal: Denies back pain Skin: Denies rashes or lesions EXAM Physical Exam Narrative Exam Narrative: General: Patient is lying in bed rest comfortably did not appear to be in acute distress Head: Atraumatic, normocephalic Eyes: PERRL bilateral, EOMI bilateral, no conjunctival injection noted Neck: Soft, supple, trachea midline Cardiovascular: Regular rate and rhythm no murmurs gallops rubs noted Respiratory: Clear to auscultation bilaterally no rales rhonchi or wheezes noted Abdomen: Soft, nondistended, nontender to palpation Extremities: +5/5 strength noted in the bilateral upper and lower extremities, radial pulse +2/4 in the bilateral extremities, no pedal edema on exam Neurological: Patient following commands knew that he was at [facility] years 2024 Skin: Warm, dry, intact no rashes or lesions noted Const Vital Signs: 06/17/24 15:13 06/17/24 15:21 06/17/24 16:12 Temperature 96.9 F L Temperature Source Temporal Pulse Rate 89 73 Respiratory Rate 19 H 28 H Blood Pressure 158/88 H 127/83 H Blood Pressure Mean 111 97 Pulse Ox 99 97 95 Oxygen Delivery Method Room Air Room Air Room Air 06/17/24 17:00 06/17/24 18:03 Temperature Temperature Source Pulse Rate 74 95 Respiratory Rate 18 22 H Blood Pressure 136/86 H 134/87 H Blood Pressure Mean 102 102 Pulse Ox 95 95 Oxygen Delivery Method Room Air Room Air MDM MDM MDM Narrative Medical decision making narrative: Patient is a 44-year-old male who presented to the emergency department with a chief complaint of chest pain and shortness of breath. On the differential diagnose includes but not limited to ACS, pneumonia, pneumothorax, rib fracture, costochondritis. Once workup is obtained reviewed he will be reevaluated. Patient be given fluids and Toradol. Patient CBC reviewed and was largely unremarkable no evidence leukocytosis white blood count normal 9.3, hemoglobin 15.7, plate count normal at 239. Patient sodium normal 139, potassium normal 4.3, creatinine normal at 0.87. Patient's troponin was 8 with a delta troponin 7, EKG was reviewed which showed sinus rhythm with a rate of 85 bpm with a SC interval of 158. This was compared to previous EKG from 07/19/2017 was largely unchanged. Patient's chest x-ray reviewed by myself and by radiology which showed no acute cardiopulmonary processes. On reevaluation patient is feeling much improved he like to go home at this point time. Patient was advised to continue supportive care with rotating Tylenol and ibuprofen [id number] is advised to follow-up with his primary care physician outpatient setting. He is encouraged return with worsening symptoms or concerns. He is agreeable this plan all course concerns answered he is discharged home in stable condition. Lab Data Labs: Laboratory Results - last 24 hr 06/17/24 06/17/24 15:22 17:30 WBC 9.3 RBC 5.20 Hgb 15.7 Hct 46.2 MCV 88.8 MCH 30.2 MCHC 34.0 RDW Std Deviation 39.7 RDW Coeff of Carlos 12.2 Plt Count 239 MPV 10.1 Immature Gran % (Auto) 0.400 Neut % (Auto) 62.1 Lymph % (Auto) 25.6 [place] % (Auto) 9.3 Eos % (Auto) 2.0 Baso % (Auto) 0.6 Absolute Neuts (auto) 5.8 Absolute Lymphs (auto) 2.37 Nucleated RBC % 0 Sodium 139 Potassium 4.3 Chloride 106 Carbon Dioxide 21.7 Anion Gap 11 BUN 13 Creatinine 0.87 Estim Creat Clear Calc 138.75 Est GFR (MDRD) Non-Af 110 BUN/Creatinine Ratio 15.3 Glucose 94 Calcium 9.2 Troponin T High Sens 8 Troponin T Hi Sens 2 Hr 7 NT pro BNP II < 36 Radiography Diagnostic Testing: Clinical Impression(s) from Imaging Studies Chest X-Ray 06/17/24 15:30 IMPRESSION: The lateral view is limited by patient motion. Examination somewhat limited by hypoinflation, but no acute pneumonic process is clearly evident. No pleural effusion or pneumothorax is seen. The cardiomediastinal silhouette is within the normal range, and unchanged. Mild thoracic spine degenerative changes are noted. No acute osseous process is seen. Reading Location: [address] Discharge Plan Triage Chief Complaint: Chest Pain ED Provider: Lamont Valdez Dx/Rx/DC Orders Clinical Impression: Chest pain Prescriptions: No Action bupropion HCl [Wellbutrin SR] 150 mg tablet sustained-release 12 hr 150 mg PO BID Qty: 60 2RF buspirone 15 mg tablet 15 mg PO TID 30 Days Qty: 90 1RF Primary Care Provider: Care PhysicianNo Primary Referrals: Care Physician,No Primary [Primary Care Provider] - Maryjo Crane [employer] ENG[employer]C [[facility] - Activity Restrictions/Additional Instructions: Rotate Tylenol and ibuprofen [id number] for pain control. Return with worsening symptoms or concerns. Follow-up with your doctor in the outpatient setting that referred to. Print Language: Yi Disposition Disposition: Home, Self Care
[2024-06-17] MEDS: 0.9% Normal Saline (1000mL) 1,000 ML 999 ML IV (15:27)
--- NOTE | 2024-06-17 15:30 | RAD_ITS ---
PROCEDURE: CHEST PA AND LATERAL 06/17/2024 REASON FOR EXAM: CHEST PAIN TECHNIQUE: Frontal and lateral views of the chest. COMPARISON: AP chest of 03/13/2021. RAD/Chest PA and Lateral IMPRESSION: The lateral view is limited by patient motion. Examination somewhat limited by hypoinflation, but no acute pneumonic process i s clearly evident. No pleural effusion or pneumothorax is seen. The cardiomediastinal silhouette is within the normal range, and unchanged. Mild thoracic spine degenerative changes are noted. No acute osseous process is seen. Reading Location: [id number]
[2024-06-17 15:44] LABS: Absolute Lymphocyte Count 2.37 X10^3/uL (0.83-4.51); Absolute Neutrophil Count 5.8 X10^3/uL (2.0-7.7); Basophil# 0.06 X10^3/uL; Basophil% 0.6 % (0-1); Eosinophil# 0.19 X10^3/uL; Hematocrit 46.2 % (40-54); Hemoglobin 15.7 g/dL (13.0-16.5); Lymphocyte # 2.37 X10^3/ul (0.83-4.51); Lymphocyte % 25.6 % (19-41); Mean Corpuscular Hgb 30.2 pg (27.0-32.0); Mean Corpuscular Volume 88.8 fL (80-94); Mean Platelet Vol. 10.1 fl (6.2-12.0); Monocyte# 0.86 X10^3/uL; Monocyte% 9.3 % (0-10); NRBC Flagged by Analyzer 0 % (0-5); Neutrophil # 5.75 X10^3/uL (2.7-7.7); Neutrophil % 62.1 % (47-70); Platelet Count 239 K/mm3 (150-450); RBC Distribution Width CV 12.2 % (11.6-14.6); RBC Distribution Width SD 39.7 fl (35.1-43.9); White Blood Count 9.3 K/mm3 (4.4-11.0)
[2024-06-17] MEDS: Ketorolac 15 MG/ML Vial IV (15:56)
[2024-06-17 16:27] LABS: Anion Gap 11 (5-15); BUN 13 mg/dL (4-19); BUN/Creat Ratio 15.3 RATIO (10-20); Calcium,Total 9.2 mg/dL (7.6-11.0); Carbon Dioxide 21.7 mmol/L (21.0-32.0); Chloride 106 mmol/L (98-108); Creatinine, Serum 0.87 mg/dL (0.70-1.20); EST Glomerular Filtration Rate 110 (>60); Estimated Creatinine Clearance 138.75 ml/min (50-250); Glucose 94 mg/dL (70-99); Potassium 4.3 mmol/L (3.3-5.1); Pro- Brain NATRIURETIC PEPTIDE < 36 pg/mL (<=450); Sodium Level 139 mmol/L (133-145); Troponin T High Sensitivity 8 ng/L (<=22)
[2024-06-17 18:07] LABS: Troponin T High Sens 2 HR 7 ng/L (<=22)
== END 2024-06-17 18:53 | disposition home or self-care (01) ==
PROVIDERS: Emergency Provider Emergency Medicine; Visit Provider Emergency Medicine
DX: R07.9 Chest pain, unspecified (principal); R06.02 Shortness of breath; F41.1 Generalized anxiety disorder; F17.210 Nicotine dependence, cigarettes, uncomplicated
CPT/HCPCS: 71046; 80048; 83880; 84484; 85025; 93005; 96361; 96374; 99283; A4216

== ENCOUNTER 2024-06-23 07:10 | Outpatient (RCR) | payer MEDICAID, SELFPAY | END 2024-07-09 15:23 | disposition home or self-care (01) | LOC: BHOG 07:10 | PROVIDERS: Referring Provider Psychiatry & Neurology Psychiatry; Visit Provider Psychiatry & Neurology Psychiatry | DX: F33.2 Major depressive disorder, recurrent severe without psychotic features (principal); F43.11 Post-traumatic stress disorder, acute; F43.10 Post-traumatic stress disorder, unspecified; F90.9 Attention-deficit hyperactivity disorder, unspecified type; F10.91 Alcohol use, unspecified, in remission; F15.91 Other stimulant use, unspecified, in remission | CPT/HCPCS: 90853 ==

== ENCOUNTER → 2024-10-13 | Outpatient (CLI) | payer MEDICAID, SELFPAY ==
[2024-10-13 16:36] LABS: Hematocrit 46.4 % (40-54); Hemoglobin 15.7 g/dL (13.0-16.5); Immature Granulocytes Count 0.020 X10^3/uL (0.0-0.0); Mean Corp Hgb Conc 33.8 g/dL (32-36); Mean Corpuscular Volume 88.9 fL (80-94); Mean Platelet Vol. 10.4 fl (6.2-12.0); NRBC Flagged by Analyzer 0 % (0-5); Platelet Count 226 K/mm3 (150-450); RBC Distribution Width CV 12.2 % (11.6-14.6); RBC Distribution Width SD 40.0 fl (35.1-43.9); Red Blood Count 5.22 M/mm3 (4.6-6.2); White Blood Count 8.3 K/mm3 (4.4-11.0)
[2024-10-13 17:43] LABS: AST(SGOT) 30 U/L (<=37); Alanine Aminotransfer ALT/SGPT 43 U/L (<=46); Albumin, Serum 4.4 g/dL (3.5-5.0); Alkaline Phosphatase 115 U/L (40-129); Anion Gap 12 (5-15); BUN 12 mg/dL (4-19); BUN/Creat Ratio 13.8 RATIO (10-20); Calcium,Total 9.8 mg/dL (7.6-11.0); Carbon Dioxide 22.6 mmol/L (21.0-32.0); Chloride 104 mmol/L (98-108); Ferritin 141 ng/mL (37-417); Globulin 3.3 g/dL (2.2-4.2); Glucose 93 mg/dL (70-99); Potassium 4.5 mmol/L (3.3-5.1); Vitamin B12 1016 pg/mL (180-914); Vitamin D,25 Hydroxy 25.3 ng/mL (30-100)
[2024-10-13 18:11] LABS: Iron 75 ug/dL (65-175); Iron Binding Capacity,Total 282 ug/dL (250-450); Iron Binding Capacity,Unsat 207 ug/dL (228-428); Magnesium 2.2 mg/dL (1.5-2.2)
== END | disposition home or self-care (01) ==
LOC: VSLAB 16:03
DX: M62.830 Muscle spasm of back (principal); R53.83 Other fatigue
CPT/HCPCS: 36415; 80053; 82306; 82607; 82728; 83540; 83550; 83735; 84443; 85025

== ENCOUNTER 2024-11-27 08:00 | Outpatient (RCR) | payer MEDICAID, SELFPAY ==
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
--- NOTE | 2024-11-27 09:05 | BH.SGPN.GN ---
Behaviors/Verbalizations/Mental Status: [] Eye contact is good. Motor activity is appropriate. Appearance is casual. Speech is Appropriate. Mood is depressed. Affect is congruent. Thoughts are linear and logical. No evidence of psychosis. Reviewed daily check in sheet and no reports of suicidal ideations or intent. Client Response/Progress/Benefit: [] Pt participated when prompted. Attentive. Daily symptom tracker notes 5/5 for depression and anxiety as well as 4/5 for agitation. This was pt?s first day in IOP level of care. Did not share much. Stated that he needs? mental health help? and briefly shared a little about himself. No progress noted as this was his first day in IOP. Benefited from group support, encouragement, and feedback. Will continue in IOP to prevent decompensation, stabilize mood, and improve functioning. Narrative Note: []
--- NOTE | 2024-11-27 10:05 | BH.NA ---
Physical Data Vital Signs Pulse Rate: 89 Blood Pressure: 152/92 Height/Weight Height: 1.83 m Weight:: 107.501 kg Weight in Pounds: 237.0 lbs Current Medication Compliance Medication Compliance Do you take your medication as prescribed?: No (has not been taking medication) Functional Assessment Sleep Pattern Describe any problems with sleeping: Client states he has been sleeping 3-4 hours per night. Sensory/Communication Assess Vision Problems Do you have any vision problems?: Glasses Communication Problems Do you have difficulty understanding what people are saying?: No Medical Problems/History Musculoskeletal Conditions Musculoskeletal: Arthritis (client states all over) Surgical History Surgical History Have you had any surgeries? If so, list type and date:: Yes (left knee x 4, left elbow-radial head removed, adenoidectomy) Substance Abuse Substance Abuse Please describe substance abuse in the last 30 days:: Client states he has been sober from alcohol use for a couple years now. Client states he has smoked cigarettes since age 9 and currently smokes about 1 pack per day. Client states he started using meth around age 36 and states his last use was September 16, 2023. Client reports a history of some cocaine use but none recently. Client states he drinks 3-4 cups of coffee per day and occasionally drinks 1-2 energy drinks per day. Mental Status Summary Mental Status Significant Findings/Observations on Appearance and Mood:: Client is alert and oriented x 4. Client is casually groomed. Client makes fair eye contact. Client's voice has normal rate and volume. Client has a somewhat restricted affect. Client makes logical associations. Client appears to have normal processing. Client denies delusions/hallucinations. Client reports chronic passive SI. Suicide Assessment Suicidal Ideation Are you currently or have you been suicidal in the past?: Yes Suicidal Intentional Rating Scale (SIRS): Suicidal thoughts (past) (reports chronic daily passive SI, denies intent/plan) Physician Notification Past Psychiatric History MH Treatment Hx Past Psychiatric Medications:: Zyprexa, Seroquel, Buspar, hydroxyzine, Wellbutrin, does not remember names of others Describe (age, circumstance, etc) any past hospitalizations: Client has a suicide attempt once over 20 years ago. Current providers for mental health treatment (counselor, psychiatrist, disease case manager rn, etc.): has not currently been seeing anyone. Last saw Dr. Rios for psychiatry in April 2024 and plans to return to him Fall Risk Assessment Age Age: Less than 60 Mental Status Mental Status: Willing & able to ask for assistance when needed Physical Status Physical Status: No problems Impairments Impairments: None Elimination Elimination: Continent AND independent Gait or Balance Gait or Balance: Walks independently Hx of Falls History of falls in the past 6 months: No known history Medications/Substances Medications/substances used within the past 24 hours or ordered to administer: None of the medications/substances list above Total Score Total Points:: 0 RN Summary of Impressions Impressions Recommendations Impressions: Psychiatric Issues: major depressive disorder, methamphetamine use disorder, in remission 14 months Level of Care How do the client's current symptoms and functional deficits support need for this level of care?: Client was in IOP in November 2021 and again in February 2024. Client returns at this time due to continued depression, anxiety and daily passive SI. Client denies active SI, denies plan and denies intent. Client states he feels his traumatic past is a huge stressor. Client states I have trust issues and I'm trying to figure that out some before I mess up the relationships in my life. Client has been sober from methamphetamine for about 14 months. IOP will promote gains and prevent further decompensation while providing social support and skills training. Nutritional Screen Height/Weight Height: 1.83 m Weight:: 107.501 kg Weight in Pounds: 237.0 lbs Nutrition Screening Normal Weight: 104.326 kg Normal/Usual Weight in Pounds: 230.0 lbs Have you lost weight without trying: No Have you been eating poorly because of a decreased appetite: No Recently been on tube feeds, TPN, or have any nutritional access device in place: No Have any large open wounds or wounds that are not healing: No Calculated Weight Change: [id number] Change in weight Score: 1 MST Screening Tool Score: 1
[2024-11-27 10:55] VITALS: BP 152/92; PULSE 89
--- NOTE | 2024-11-30 05:39 | BH.DR.ITP ---
Initial Treatment Plan Patient Information Visit Information: ADMISSION DATE: EXPECTED LOS: 4-6 weeks Problems/Symptoms Problem #1:: depression Symptom:: anhedonia, low mood, mood swings, irritability Problem #2:: anxiety Symptom:: panic attacks, nervousness, restlessness
--- NOTE | 2024-12-02 10:10 | BH.SGPN.GN ---
Behaviors/Verbalizations/Mental Status: []Pt alert and oriented, casually dressed and groomed. Eye contact good. Motor activity appropriate. Speech within normal limits. Affect congruent, mood euthymic. Thoughts linear, logical, no signs of hallucinations or delusions. Client Response/Progress/Benefit: []Pt was an active participant in group discussion and activity. Attentive during psychoeducation. Along with peers, pt was able to identify barriers to taking action in their life. Identified several symptoms and stressors that pt feels are holding them back from progress. Pt stated trust issues keep him from creating healthy relationships. Pt able to identify how these things have negatively impacted progress. Benefited from increased self-awareness of obstacles. Pt will continue IOP to improve emotion regulation, challenge distortions, and prevent decompensation.
--- NOTE | 2024-12-02 11:10 | BH.SGPN.GN ---
Behaviors/Verbalizations/Mental Status: []Pt alert and oriented, neatly dressed and groomed. Eye contact poor. Motor activity appropriate. Speech within normal limits. Affect congruent, mood anxious. Thoughts linear, logical, no signs of hallucinations or delusions. Client Response/Progress/Benefit: [] Pt responded well to session, taking notes and participating in worksheet discussion. Pt connected with the discussion on action steps, and this helped pt learn how to set goals differently. Pt set a SMART goal that pt will ?wait to send text messages so I?m not sending them out of anxiety.? Pt also noted he can refer to the worksheet his therapist gave him for homework as an added support. Appeared to benefit from identifying a small goal to benefit mental health. Pt is to continue IOP tx to prevent decompensation, increase distress tolerance skills, and reduce negative thinking patterns that reinforce anxiety. Narrative Note: []
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
--- NOTE | 2024-12-02 15:30 | BH.MTP ---
Master Treatment Plan Patient Information Program Physician:: Dr. 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 Description of Barriers: Pt reports avoidance, negative thinking patterns, and difficulty concentrating due to ADHD. Pt has an extensive substance abuse and legal hx as well which may impede consistent progress as well. Pt also had a stable job that he recently was let go from which triggered his decompensation. Functional Impact: Pt is a 44 year-old male with a history of MDD, Polysubstance use, and PTSD that returns to IOP due to decompensation since being let go from his job in August. Pt reports since then he has been struggling with managing his anxiety and depression. Pt currently endorses poor sleep, urges to use, racing thoughts, anxiety, hopelessness, worthlessness, and lack of energy. Pt is fearful that if he does not get support he will decompensate worse and relapse. 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 Pt has successfully completed IOP before and was doing well for several months before he lost his job. Objectives Objective #1: Stated Objective: Pt will learn and utilize 2-3 healthy coping strategies to better manage depressive symptoms and reduce suicidal ideations as shown by a decrease of DMS-5 symptoms for depression. Interventions: Through group and individual sessions, therapist will help pt identify triggers and warning signs of depression including emotional, physical, and behavioral changes. Therapist will teach pt various coping skills to manage symptoms and give pt tangible resources to use to regulate emotions. Therapist will use cognitive restructuring techniques and help pt gain awareness of negative thoughts that reinforce guilt and depression. Therapist will provide psychoeducation on maintenance cycles and help pt learn ways to break unhealthy maintenance cycles. Therapist will help pt incorporate behavioral activation and assist pt in setting SMART goals. Discharge Criteria: Pt will have met this goal when can report learning and using at least 2 coping skills to manage depressive symptoms and reduce isolation. Additionally, pt will have met this goal when pt's DSM-5 scores for depression decrease Target Date: 01/08/25 Review Date: 12/18/24 Status: open Problem/Goal #2 Problem/Goal #2 Stated Goal:: Will reduce intensity of anxiety and panic through increasing and distress tolerance skills Description of Barriers: Pt reports avoidance, negative thinking patterns, and difficulty concentrating due to ADHD. Pt has an extensive substance abuse and legal hx as well which may impede consistent progress as well. Pt also had a stable job that he recently was let go from which triggered his decompensation. Functional Impact: Pt is a 44 year-old male with a history of MDD, Polysubstance use, and PTSD that returns to IOP due to decompensation since being let go from his job in August. Pt reports since then he has been struggling with managing his anxiety and depression. Pt currently endorses poor sleep, urges to use, racing thoughts, anxiety, hopelessness, worthlessness, and lack of energy. Pt is fearful that if he does not get support he will decompensate worse and relapse. 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 Pt has successfully completed IOP before and was doing well for several months before he lost his job. Objectives Objective #1: Stated Objective: Pt will identify 2-3 anxiety triggers and 2 coping skills to use when feeling anxious to manage anxiety as shown by reducing DSM-5 scores for anxiety Interventions: Therapist will provide education on anxiety, avoidance behaviors, and maintenance cycles. Therapist will help pt explore personal symptoms and warning signs of anxiety. Therapist will teach pt coping skills to improve emotional regulation, mindfulness, and distress tolerance to help pt cope with anxiety in the moment. Discharge Criteria: Pt will have accomplished this goal when she can identify at least 2 triggers and report using 2 coping skills to manage anxiety. Additionally, pt will have accomplished this goal AEB reduction of DSM-5 scores for anxiety. Target Date: 01/08/25 Review Date: 12/18/24 Status: open
--- NOTE | 2024-12-10 09:05 | BH.SGPN.GN ---
Behaviors/Verbalizations/Mental Status: [] Eye contact is good. Motor activity is appropriate. Appearance is casual. Speech is Appropriate. Mood is anxious. Affect is congruent. Thoughts are linear and logical. No evidence of psychosis. Reviewed daily check in sheet and no reports of suicidal ideations or intent. Client Response/Progress/Benefit: [] Pt participated when prompted. Distracted. Emotion is ?tired?. 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 States that he was up till very late last night. Able to identify mental health wins. While he is tired he expressed that keeping himself busy is important for his mental health and recovery. Limited progress. Inconsistent attendance and often distracted. Benefited from group support. Will continue in IOP to prevent decompensation, increase healthy coping, and stabilize mood. Narrative Note: []
--- NOTE | 2024-12-10 11:15 | BH.SGPN.GN ---
Behaviors/Verbalizations/Mental Status: []Pt alert and oriented, casually dressed and groomed. Eye contact good. Motor activity appropriate. Speech within normal limits. Affect congruent, mood agitated. Thoughts linear, logical, no signs of hallucinations or delusions. Client Response/Progress/Benefit: [] Pt was an active participant AEB pt providing input and listening attentively to peers. Attentive during psychoeducation on mindfulness coping skills and their impact on reducing anxiety and improving overall mental health wellness. Group was able to identify self-soothing and mind-based coping skills which included: 5-senses, meditation, deep breathing, TIPP, thought challenging, categories, and progressive muscle relaxation. Pt would like to work on using deep breathing and walking more regularly to reduce anxiety. Appeared to benefit from increasing repertoire of anxiety reduction skills. Pt will continue IOP to increase distress tolerance skills, improve interpersonal effectiveness skills, and reduce negative self-talk. Narrative Note: []
--- NOTE | 2024-12-10 11:19 | BH.MDN ---
Multi-Disciplinary Note Note 30-min Individual: Time Started:: 10:30 Date: 12/10/24 Purpose of session/treatment goals addressed:: To work on distress tolerance skills and to discuss attendance. Eye Contact:: Good Motor Activity:: Appropriate Appearance:: Casual Speech:: Appropriate Mood:: Anxious Affect:: Congruent Thoughts:: Racing and No evidence of hallucinations/delusions noted Staff Interventions:: thought challenging, motivational interviewing, psychoeducation on: (anxiety and distress tolerance tolerance in recovery.), CBT techniques, strengths perspective and other (Distress tolerance skills and homework to practice these throughout the week.) Client Response:: Pt responded well to session, open to meeting with therapist. Pt reports he has been struggling to get to IOP because his work schedule is unpredictable and the schedule does not come out until Mondays. Therapist empathized, but also reinforced boundaries as pt has signed the IOP policy agreement. Pt reports he will be more consistent next week. Pt and therapist reviewed pt's homework from last session which was to work on distress tolerance skills and read a chapter about attachment. Pt shared he did not read, but he feels that things have been better in his relationship because of some of the distress tolerance skills he used. Pt shared he and his girlfriend had a long discussion and they were able to process things and come up with a plan to make things work. Pt stated he was also more vulnerable with her and he is working on not blaming her out pt's own insecurity. Pt recognizes that being sober also means feeling his emotions without having the option to immediately numb. Pt noted that he has gotten good news that he will be able to get his license back within a year. Pt has good things happening in his life and he is working on saving money so he can find a place. Pt and therapist reinforced pt's wins and discussed things pt can do to maintain these healthy choices. Risks/Concerns:: Pt denies any suicidal ideation, plan, or intent. Pt denies any thoughts of . Progress Toward Goals/Plan:: Pt understands that his attendance is a barrier to working on goals he has identified. Pt encouraged to attend 2-3 days a week. Pt receptive to discussion on distress tolerance skills and pt has gained insight that the times he is able to be more emotionally resilient it helps pt and his relationships. Pt will continue IOP tx to prevent decompensation, improve distress tolerance, and improve emotional regulation. Time Stopped:: 11:03
--- NOTE | 2024-12-17 15:04 | BH.DS_ITS ---
Discharge Summary Demographics Date of Admission:: 11/27/24 Discharge Date: 12/17/24 Presenting Problems at Admission:: Pt is a 44 year-old male with a history of MDD, Polysubstance use, and PTSD that returns to IOP due to decompensation since being let go from his job in August. Pt reports since then he has been struggling with managing his anxiety and depression. Pt currently endorses poor sleep, urges to use, racing thoughts, anxiety, hopelessness, worthlessness, and lack of energy. Pt is fearful that if he does not get support he will decompensate worse and relapse. 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 Pt reports with his unpredictable work schedule it is too challenging to attend IOP on a consistent basis. Treatment Progress During Treatment & Response: Limited progress as pt attending three days of IOP from admission to discharge. Pt has successfully completed the program in the past and pt's work schedule was a barrier for him this time around. Issues Still to be Addressed:: Pt and therapist were hoping to work on insecure attachment to improve pt's current relationship and his relationship with himself. Pt can also continue to work on increasing distress tolerance, improving medication management, and building healthy relationships. Pt is working on making enough money to get his own place. Discharge Recommendations/Instructions:: Pt was discharged before setting up outpatient therapy. Pt was previously seeing Huong at [facility] and he was encouraged to return to her. Pt will follow up with Dr. Rios for medication management. Pt's last appointment was 12/16/24. Discharge Handout
== END 2024-12-22 23:59 ==
LOC: BHIOP 08:00
PROVIDERS: Referring Provider Student in an Organized Health Care Education/Training Program; Visit Provider Student in an Organized Health Care Education/Training Program
DX: F33.2 Major depressive disorder, recurrent severe without psychotic features (principal); F41.0 Panic disorder [episodic paroxysmal anxiety]; F43.10 Post-traumatic stress disorder, unspecified; F90.9 Attention-deficit hyperactivity disorder, unspecified type; F10.91 Alcohol use, unspecified, in remission; F15.91 Other stimulant use, unspecified, in remission
CPT/HCPCS: H2012; S9480; 90832

== ENCOUNTER 2025-02-16 10:37 | Emergency (ER) | payer MEDICAID, SELFPAY ==
[2025-02-16 10:37] VITALS: BP 161/87; PULSE 85; RESP 14; TEMP 36.2; O2SAT 98; BMI 31.9
--- NOTE | 2025-02-16 10:59 | EX.ED.GENINJ ---
HPI History of Present Illness Chief Complaint: Trauma Detail of Chief Complaint: Fall Informant: patient Narrative Narrative: Patient presents to the emergency department after a fall from a ladder off of the roof. Patient states that he was putting in gutters and was getting back on the ladder about 10 feet off the ground when he fell falling on the ground below. He states he fell onto his head and right arm. Denies loss of consciousness. Complaining of head neck pain. Complaining of right elbow pain. Complains of right side pain. Patient has been ambulatory. Patient not anticoagulated. [facility] Medical History Alcohol use disorder in remission Panic disorder Major depressive disorder, recurrent severe without psychotic features Methamphetamine use disorder, moderate, in early remission Attention deficit hyperactivity disorder PTSD (post-traumatic stress disorder) Generalized anxiety disorder Limb weakness Knee pain Chest pain Severe headache Shoulder pain SOB (shortness of breath) Home Medications ?Medication ?Instructions ?Recorded ?Last Taken ?Type propranolol 10 mg tablet 10 mg PO BID PRN akathisia #60 tabs 11/27/24 Unknown Rx aripiprazole 5 mg tablet 5 mg PO QHS #30 tabs 12/10/24 Unknown Rx Allergy/AdvReac Type Severity Reaction Status Date / Time No Known Allergies Allergy Verified 02/16/25 10:38 Surgical History History of knee surgery Social History Smoking Status: Current every day smoker tobacco type: cigarettes alcohol intake: never ROS ROS ED Review of Systems ROS Unobtainable: other Constitutional Constitutional ED: Reports lethargy; Denies chills, fever(s), sweats or weight loss Eyes Eyes: Denies blurry vision, change in vision or diplopia ENT ENT ED: Denies rhinorrhea or sore throat Cardiovascular Cardiovascular: Reports chest pain; Denies orthopnea or racing heartbeat Respiratory/Chest Respiratory/Chest: Reports dyspnea and dyspnea on exertion; Denies cough, orthopnea or sputum Gastrointestinal Gastrointestinal: Denies abdominal pain, diarrhea, nausea or vomiting Genitourinary Genitourinary ED: Denies dysuria, hematuria or urinary frequency Musculoskeletal Musculoskeletal: Reports back pain and neck pain; Denies arthralgias or myalgias Integumentary Denies abscess, Abrasions or rash Neurologic Neurologic: Reports headache(s); Denies weakness Psychiatric Psychiatric: Denies anxiety, depression or suicidal thoughts Endocrine Endocrinology: Denies polydipsia, polyphagia or polyuria Hematologic/Lymphatic Hematologic/Lymphatic: Denies easy bleeding, easy bruising or lymphadenopathy Allergic/Immunologic Allergic/Immunologic ED: Denies mouth swelling, tongue swelling or urticaria EXAM Physical Exam Const Vital Signs: 02/16/25 10:37 02/16/25 10:49 02/16/25 11:49 Temperature 97.1 F L Temperature Source Temporal Pulse Rate 85 83 Respiratory Rate 14 Respiratory Effort Normal Respiratory Depth Normal Respiratory Pattern Normal Blood Pressure 161/87 H 140/81 H Blood Pressure Mean 111 100 Pulse Ox 98 100 Oxygen Delivery Method Room Air Room Air Room Air 02/16/25 12:00 02/16/25 13:00 Temperature Temperature Source Pulse Rate 82 84 Respiratory Rate Respiratory Effort Respiratory Depth Respiratory Pattern Blood Pressure 143/118 H 121/74 H Blood Pressure Mean 126 89 Pulse Ox 95 97 Oxygen Delivery Method Room Air Room Air Positive well nourished and well developed General Appearance ED: well developed and NAD HEENT Reports TM's clear and moist mucous membranes HEENT Narrative: No external evidence of trauma to his head. normocephalic and atraumatic; Negative for trauma or tenderness Tympanic Membrane ED: Yes TM's clear Eyes PERRL and EOMs intact bilaterally General Eye ED: Negative for pale conjunctiva or scleral icterus Neck no lymphadenopathy, supple and no JVD Neck Narrative: Diffuse tenderness palpation of the C-spine. There is no bony step-offs or depressions noted. Nursing staff had placed a c-collar on patient and will leave in place. General: tenderness Chest Wall inspection of chest normal and palpation of chest normal Chest Narrative: Mild tenderness palpation over the right posterior ribs. No ecchymosis or bruising. No crepitus or subcu emphysema noted. Chest: Negative for tenderness Resp normal respiratory effort and clear to auscultation bilaterally Effort and Inspection: Negative for respiratory distress or pain with movement Auscultation: Negative for rhonchi, wheezes or diminished lung sounds Cardio regular rate, regular rhythm, S1 normal heart sound, S2 normal heart sound and no murmurs Peripheral Pulses: pulses 2+ throughout GI normal to inspection, nondistended, normoactive bowel sounds, soft to palpation, non-tender, non-distended and no masses Back/Spine no CVA tenderness and no thoracic nor lumbar tenderness Extremity Extremity Narrative: Right elbow-patient has some tenderness to palpation diffusely about the elbow without any evidence of ecchymosis or bruising or soft tissue swelling. He has some pain with pronation and supination at the elbow. He is neurovascular intact distally. General Extremety ED: Negative for edema General Extremity: Negative for edema Neuro oriented x3, CN's II-XII intact bilaterally, no sensory deficits noted and gait normal Sensorium / Orientation: awake, alert, oriented to person, oriented to place and oriented to time Motor Exam: strength 5/5 throughout and strength abnormal Psych mental status grossly normal Skin no rashes or lesions noted and no wounds MDM MDM MDM Narrative Medical decision making narrative: Patient presents to the emergency department after a fall of about 10 feet. No significant external evidence of trauma. C-collar in place. CT scan of the brain without contrast was unremarkable. CT C-spine showed no fractures or acute process. Patient also had CT chest abdomen pelvis that showed no acute traumatic injuries. CBC with differential showed a white count 6.8 with hemoglobin 13.4 and platelet count 199. Chemistries unremarkable. LFTs were normal. He had just minimal elevation in his ALT at 66. I did obtain x-rays of his right elbow which were negative for fracture. This point he will be discharged to home. Advised to use ibuprofen or Tylenol for discomfort. Advised to follow-up with primary care physician on-call for no doc within the next 3 to 5 days. Lab Data Attestation: I reviewed the patient's lab results. Labs: Laboratory Results - last 24 hr 02/16/25 11:15 WBC 6.8 RBC 4.41 L Hgb 13.4 Hct 39.4 L MCV 89.3 MCH 30.4 MCHC 34.0 RDW Std Deviation 39.8 RDW Coeff of Carlos 12.2 Plt Count 199 MPV 10.4 Immature Gran % (Auto) 0.300 Neut % (Auto) 49.3 Lymph % (Auto) 37.7 [place] % (Auto) 9.9 Eos % (Auto) 2.1 Baso % (Auto) 0.7 Absolute Neuts (auto) 3.3 Absolute Lymphs (auto) 2.55 Nucleated RBC % 0 Sodium 138 Potassium 3.9 Chloride 104 Carbon Dioxide 22.7 Anion Gap 11 BUN 13 Creatinine 0.77 Estim Creat Clear Calc 156.28 Est GFR (MDRD) Non-Af 114 BUN/Creatinine Ratio 17.4 Glucose 105 H Calcium 9.3 Total Bilirubin 0.32 AST 35 ALT 66 H Alkaline Phosphatase 92 Total Protein 6.6 Albumin 4.1 Globulin 2.6 Albumin/Globulin Ratio 1.6 Radiography Diagnostic Testing: Clinical Impression(s) from Imaging Studies Brain CT 02/16/25 11:34 IMPRESSION: No acute intracranial abnormality. Reading Location: [facility] Cervical Spine CT 02/16/25 11:34 IMPRESSION: 1. No fracture 2. Straightening of the cervical lordosis. Consider spasm. Degenerative changes. Reading Location: [facility] Chest/Abdomen/Pelvis CT 02/16/25 11:34 IMPRESSION: 1. No evidence of significant acute traumatic injury to the chest abdomen or pelvis. 2. Other findings as noted. Reading Location: [facility] Elbow X-Ray 02/16/25 11:40 IMPRESSION: No acute fracture identified. Other findings as noted Reading Location: [facility] Three-view x-rays of the right elbow obtained interpreted by myself as no evidence of fracture or dislocation. Radiology in agreement. Discharge Plan Triage Chief Complaint: Trauma ED Provider: Earline Dong Dx/Rx/DC Orders Clinical Impression: Closed head injury, Cervical strain, Contusion of elbow, Back contusion Instructions: ED Contusion, Elbow, ED Mechanical Fall, ED Head Injury (Adult), ED Bruise, Rib Prescriptions: No Action propranolol 10 mg tablet 10 mg PO BID PRN (Reason: akathisia) Qty: 60 0RF aripiprazole 5 mg tablet 5 mg PO QHS Qty: 30 2RF Primary Care Provider: Care Physician,No Primary Referrals: Lorna Dumont, [facility] [[facility]] - 3-5 Days Print Language: Urdu Disposition Disposition: Home, Self Care
[2025-02-16 11:21] LABS: Hematocrit 39.4 % (40-54); Hemoglobin 13.4 g/dL (13.0-16.5); Immature Granulocytes Count 0.020 X10^3/uL (0.0-0.0); Mean Corp Hgb Conc 34.0 g/dL (32-36); Mean Corpuscular Volume 89.3 fL (80-94); Mean Platelet Vol. 10.4 fl (6.2-12.0); NRBC Flagged by Analyzer 0 % (0-5); Platelet Count 199 K/mm3 (150-450); RBC Distribution Width CV 12.2 % (11.6-14.6); RBC Distribution Width SD 39.8 fl (35.1-43.9); Red Blood Count 4.41 M/mm3 (4.6-6.2); White Blood Count 6.8 K/mm3 (4.4-11.0)
[2025-02-16] MEDS: 0.9% Normal Saline (1000mL) 1,000 ML 150 ML IV (11:23)
--- NOTE | 2025-02-16 11:34 | CT_ITS ---
PROCEDURE: SPINE CERVICAL WITHOUT CONTRAS 02/16/2025 REASON FOR EXAM: FALL TECHNIQUE: Procedure Code: CTSPC Modality: CT Procedure: SPINE CERVICAL WITHOUT CONTRAS Coronal and Sagittal reconstruction series were provided. One or more dose reduction techniques were used (e.g., Automated exposure control, adjustment of the mA and/or kV according to patient size, use of iterative reconstruction technique. RADIATION DOSE SUMMARY: CTDlvol: 22 mGy DLP: 381 mGycm COMPARISON: None FINDINGS: Alignment: Straightening. No spondylolisthesis. Vertebrae: No fracture. Disc space narrowing C3/4, C4/5, C5/6 and C6/7 with mild marginal endplate spurring. Some uncinate spurring is seen at C3/4, C4/5, C5/6 and on the right at C6/7. No significant facet disease. Soft Tissues: No lymphadenopathy or mass. Mild apical capping bilaterally. CT/Spine Cervical without Contras IMPRESSION: 1. No fracture 2. Straightening of the cervical lordosis. Consider spasm. Degenerative jarquin ges. Reading Location: [id number]
--- NOTE | 2025-02-16 11:34 | CT_ITS ---
PROCEDURE: BRAIN/HEAD WITHOUT CONTRAST 02/16/2025 REASON FOR EXAM: FALL TECHNIQUE: Procedure Code: CTBR Modality: CT Procedure: BRAIN/HEAD WITHOUT CONTRAST Coronal and Sagittal reconstruction series were provided. One or more dose reduction techniques were used (e.g., Automated exposure control, adjustment of the mA and/or kV according to patient size, use of iterative reconstruction technique. RADIATION DOSE SUMMARY: CTDlvol: 45 mGy DLP: 829 mGycm COMPARISON: None FINDINGS: Brain: There is no evidence of hemorrhage, acute ischemia or mass. No extra- axial fluid collection, midline shift or mass effect. CSF Spaces: Normal Sinuses/Mastoids: Clear Bones: No fracture CT/Brain/Head without Contrast IMPRESSION: No acute intracranial abnormality. Reading Location: [id number]
--- NOTE | 2025-02-16 11:34 | CT_ITS ---
PROCEDURE: CT CHEST, ABD, PEL W/CONTRAST 02/16/2025 REASON FOR EXAM: FALL, TRAUMA TECHNIQUE: Chest, abdomen and pelvis CT with intravenous contrast. Coronal and Sagittal reconstruction series were provided. One or more dose reduction techniques were used (e.g., Automated exposure control, adjustment of the mA and/or kV according to patient size, use of iterative reconstruction technique. PATIENT PREPARATION: Per protocol ORAL CONTRAST TYPE: None. AMOUNT: mL CONTRAST: Isovue-300 VOLUME: 95mL 22 gauge IV RADIATION DOSE SUMMARY: CTDlvol: 170.26 mGy DLP: 3698.14 mGycm COMPARISON: None FINDINGS: CT CHEST: Lower neck:The thyroid gland is normal. There is no supraclavicular lymphadenopathy. Mediastinum:There are multiple small reactive mediastinal lymph nodes. Heart and Aorta:Heart size is normal. There is no pericardial effusion. There is no calcific vascular disease of the coronary arteries or thoracic aorta evident. Esophagus:Normal. Chest wall:The soft tissues of the chest wall appear unremarkable. There is no axillary lymphadenopathy. Lungs, airways and pleura: There is minimal pleural-parenchymal scarring in the lung apices. There are no pulmonary nodules or masses. There are no pleural effusions. CT ABDOMEN/PELVIS: Liver: Normal size. No mass. Gallbladder: Normal. Spleen: Normal size. There is a benign splenule anterior to the spleen. Pancreas: Normal size without evidence of mass surrounding inflammation or ductal dilation. Adrenals: Normal. Kidneys: Normal renal sizes. No hydronephrosis. Bladder: Normal unenhanced appearance. Reproductive Organs: The prostate gland is normal in size. The seminal vesicles are unremarkable. There is no free fluid in the pelvis. There is no inguinal lymphadenopathy. Bowel: The gastrointestinal tract is unremarkable. Appendix: Normal. Lymph nodes: There is no significant mesenteric or retroperitoneal lymphadenopathy. Vasculature: Normal. Peritoneum / Retroperitoneum: There are no abnormal intra or retroperitoneal masses or fluid collections. Bones: There are Schmorl's nodes at multiple vertebral endplates of the mid and lower thoracic and upper lumbar spine. There is degenerative disc disease, L1-2 and L2-3. CT/CT Chest, Abd, Pel w/Contrast IMPRESSION: 1. No evidence of significant acute traumatic injury to the chest abdomen or p ian. 2. Other findings as noted. Reading Location: [id number]
--- NOTE | 2025-02-16 11:40 | RAD_ITS ---
PROCEDURE: ELBOW MIN 3 VIEWS 02/16/2025 REASON FOR EXAM: FALL TECHNIQUE: Procedure Code: RADEL Modality: DX Procedure: ELBOW MIN 3 VIEWS Laterality: Right COMPARISON: None FINDINGS: There is no evidence of fracture or dislocation. There may be an old healed impacted fracture of the radial head. There is a large spur on the trochlea. There is no elbow joint effusion. RAD/Elbow min 3 Views IMPRESSION: No acute fracture identified. Other findings as noted Reading Location: [id number]
[2025-02-16 11:49] VITALS: BP 140/81; PULSE 83; O2SAT 100
[2025-02-16 12:00] VITALS: BP 143/118; PULSE 82; O2SAT 95
[2025-02-16 12:03] LABS: AST(SGOT) 35 U/L (<=37); Alanine Aminotransfer ALT/SGPT 66 U/L (<=46); Albumin, Serum 4.1 g/dL (3.5-5.0); Alkaline Phosphatase 92 U/L (40-129); Anion Gap 11 (5-15); BUN 13 mg/dL (4-19); BUN/Creat Ratio 17.4 RATIO (10-20); Calcium,Total 9.3 mg/dL (7.6-11.0); Carbon Dioxide 22.7 mmol/L (21.0-32.0); Chloride 104 mmol/L (98-108); Estimated Creatinine Clearance 156.28 ml/min (50-250); Globulin 2.6 g/dL (2.2-4.2); Glucose 105 mg/dL (70-99); Potassium 3.9 mmol/L (3.3-5.1)
[2025-02-16 13:00] VITALS: BP 121/74; PULSE 84; O2SAT 97
[2025-02-16 13:48] VITALS: BP 137/79; PULSE 73; RESP 16; TEMP 36.6; O2SAT 99
--- NOTE | 2025-02-16 16:35 | CM.ED ---
Social Work Reason for visit: No PCP Patient confirmed that he does not currently have a PCP. [facility] provider list along with information on what offices are taking new patients was given to patient. No further needs identified at this time. Mayra Miramontes, INSPECTOR PROCESS, DRILLING ENGINEERING MANAGER
== END 2025-02-16 13:53 | disposition home or self-care (01) ==
PROVIDERS: Emergency Provider Emergency Medicine; Visit Provider Emergency Medicine
DX: S09.90XA Unspecified injury of head, initial encounter (principal); S16.1XXA Strain of muscle, fascia and tendon at neck level, initial encounter; S50.01XA Contusion of right elbow, initial encounter; W11.XXXA Fall on and from ladder, initial encounter; F17.210 Nicotine dependence, cigarettes, uncomplicated
CPT/HCPCS: 70450; 71260; 72125; 73080; 74177; 80053; 85025; 96360; 96361; 99284; Q9967; A4216